=== PATIENT | female | born 1960 | race Caucasian/White ===

== ENCOUNTER → 2017-08-10 08:22 | Outpatient (CLI) | payer BC, SELFPAY ==
[2017-08-10 09:42] LABS: Hemoglobin A1C% w Est Avg Glu 7.9 % (4.0-6.0)
[2017-08-10 09:43] LABS: Alanine Aminotransferase 25 IU/L (9-52); Albumin 4.1 g/dL (3.5-5.0); Alkaline Phosphatase 98 U/L (38-126); Aspartate Aminotransferase 20 IU/L (14-36); BUN Creatinine Ratio 19.1 (6-22); Bilirubin Total 0.5 mg/dL (0.2-1.3); Calcium 9.1 mg/dL (8.4-10.2); Cholesterol 199 mg/dL (140-199); Glucose 186 mg/dL (70-100); HDL Cholesterol 35 mg/dL (40-60); HEMOLYSIS < 15 (0-50); LDL Cholesterol Calculated 118 mg/dL (<100); Potassium 4.2 mmol/L (3.4-5.1); Sodium 141 mmol/L (137-145); Total Protein 8.1 g/dL (6.3-8.2); Triglycerides 231 mg/dL (35-150)
== END ==
PROVIDERS: PCP Family Medicine; Visit Provider Family Medicine
DX: E66.01 Morbid (severe) obesity due to excess calories (principal); I10 Essential (primary) hypertension; E78.2 Mixed hyperlipidemia; E11.65 Type 2 diabetes mellitus with hyperglycemia
CPT/HCPCS: 36415; 80053; 80061; 83036

== ENCOUNTER → 2017-12-16 15:33 | Outpatient (CLI) | payer BC, SELFPAY | PROVIDERS: PCP Family Medicine; Visit Provider Physician Assistant | DX: R52 Pain, unspecified (principal) | CPT/HCPCS: 87070; 87075; 87205; 87252 ==

== ENCOUNTER → 2018-02-03 08:48 | Outpatient (CLI) | payer BC, SELFPAY ==
[2018-02-03 09:46] LABS: Alanine Aminotransferase 19 IU/L (9-52); Albumin 4.2 g/dL (3.5-5.0); Albumin Globulin Ratio 1.1 (1.0-2.8); Alkaline Phosphatase 95 U/L (38-126); Aspartate Aminotransferase 21 IU/L (14-36); Bilirubin Total 0.3 mg/dL (0.2-1.3); Blood Urea Nitrogen 18 mg/dL (7-17); Calcium 8.9 mg/dL (8.4-10.2); Carbon Dioxide 30 mmol/L (22-32); Chloride 99 mmol/L (98-107); Cholesterol 307 mg/dL (140-199); Estimated Glomerular Filt Rate > 60.0 mL/min (>60); Globulin 3.7 g/dL (1.7-4.1); Glucose 217 mg/dL (70-100); HDL Cholesterol 38 mg/dL (40-60); HEMOLYSIS < 15 (0-50); LDL Cholesterol Calculated 210 mg/dL (<100); Potassium 4.1 mmol/L (3.4-5.1); Sodium 140 mmol/L (137-145); Total Protein 7.9 g/dL (6.3-8.2); Triglycerides 297 mg/dL (35-150)
[2018-02-03 09:48] LABS: Hemoglobin A1C% w Est Avg Glu 10.4 % (4.0-6.0)
[2018-02-03 23:13] LABS: Thyroid Stimulating Hormone 2.58 uIU/mL (0.47-4.68)
[2018-02-04 03:24] LABS: Free T3, Triiodothyronine Free 2.67 pg/mL (2.77-5.27); Free T4, Direct Thyroxine 1.67 ng/dL (0.78-2.19)
== END ==
PROVIDERS: PCP Family Medicine; Visit Provider Family Medicine
DX: E11.9 Type 2 diabetes mellitus without complications (principal); E03.9 Hypothyroidism, unspecified; E78.5 Hyperlipidemia, unspecified; I10 Essential (primary) hypertension
CPT/HCPCS: 36415; 80053; 80061; 83036; 84439; 84443; 84481

== ENCOUNTER → 2018-05-17 09:56 | Outpatient (CLI) | payer BC, SELFPAY ==
[2018-05-17 11:13] LABS: Add Manual Diff / Slide Review NO; Basophils Absolute Auto 100 /uL (0-100); Basophils Percent Auto 0.6 % (0-2); Eosinophils Absolute Auto 500 /uL (0-450); Eosinophils Percent Auto 5.2 % (2-4); Hemoglobin 12.2 g/dL (12.0-16.0); Lymphocytes Absolute Auto 2500 /uL (1100-4500); Lymphocytes Percent Auto 26.5 % (25-40); Mean Corpuscular HGB Conc 32.9 % (30-36); Mean Corpuscular Hemoglobin 28.3 PG (26-34); Mean Corpuscular Volume 85.9 fL (80-100); Monocytes Absolute Auto 400 /uL (0-900); Neutrophils Absolute Auto 5900 /uL (1500-7000); Neutrophils Percent Auto 63.7 % (50-75); Platelet Count 410 X10^3/uL (150-400); Red Blood Cell Count 4.31 X10^6/uL (4.0-5.2); Red Cell Distribution Width 13.8 % (11.6-14.8); White Blood Cell Count 9.3 X10^3/uL (4.5-11.0)
[2018-05-17 11:28] LABS: Hemoglobin A1C% w Est Avg Glu 9.3 % (4.0-6.0)
[2018-05-17 11:35] LABS: Alanine Aminotransferase 31 IU/L (9-52); Albumin 4.2 g/dL (3.5-5.0); Albumin Globulin Ratio 1.1 (1.0-2.8); Alkaline Phosphatase 87 U/L (38-126); Aspartate Aminotransferase 20 IU/L (14-36); Bilirubin Total 0.4 mg/dL (0.2-1.3); Blood Urea Nitrogen 27 mg/dL (7-17); Calcium 9.8 mg/dL (8.4-10.2); Carbon Dioxide 28 mmol/L (22-32); Chloride 99 mmol/L (98-107); Cholesterol 249 mg/dL (140-199); Estimated Glomerular Filt Rate 35.7 mL/min (>60); Globulin 3.9 g/dL (1.7-4.1); Glucose 189 mg/dL (70-100); HDL Cholesterol 39 mg/dL (40-60); HEMOLYSIS < 15 (0-50); LDL Cholesterol Calculated 145 mg/dL (<100); Potassium 4.7 mmol/L (3.4-5.1); Sodium 139 mmol/L (137-145); Total Protein 8.1 g/dL (6.3-8.2); Triglycerides 325 mg/dL (35-150)
== END ==
PROVIDERS: PCP Family Medicine; Visit Provider Family Medicine
DX: E11.9 Type 2 diabetes mellitus without complications (principal); E78.5 Hyperlipidemia, unspecified; I10 Essential (primary) hypertension; Z51.81 Encounter for therapeutic drug level monitoring
CPT/HCPCS: 36415; 80053; 80061; 83036; 85025

== ENCOUNTER → 2018-09-22 08:57 | Outpatient (CLI) | payer BC, SELFPAY ==
[2018-09-22 09:24] LABS: Add Manual Diff / Slide Review NO; Basophils Absolute Auto 0 /uL (0-100); Basophils Percent Auto 0.5 % (0-2); Eosinophils Absolute Auto 300 /uL (0-450); Eosinophils Percent Auto 3.4 % (2-4); Hematocrit 37.6 % (36-46); Hemoglobin 12.1 g/dL (12.0-16.0); Lymphocytes Absolute Auto 2100 /uL (1100-4500); Lymphocytes Percent Auto 24.9 % (25-40); Mean Corpuscular HGB Conc 32.1 % (30-36); Mean Corpuscular Volume 87.2 fL (80-100); Monocytes Absolute Auto 400 /uL (0-900); Monocytes Percent Auto 4.3 % (3-14); Neutrophils Absolute Auto 5600 /uL (1500-7000); Neutrophils Percent Auto 66.9 % (50-75); Platelet Count 338 X10^3/uL (150-400); Red Blood Cell Count 4.31 X10^6/uL (4.0-5.2); Red Cell Distribution Width 14.1 % (11.6-14.8); White Blood Cell Count 8.3 X10^3/uL (4.5-11.0)
[2018-09-22 09:35] LABS: Hemoglobin A1C% w Est Avg Glu 9.9 % (4.0-6.0)
[2018-09-22 09:47] LABS: Alanine Aminotransferase 25 IU/L (9-52); Albumin Globulin Ratio 1.1 (1.0-2.8); Alkaline Phosphatase 103 U/L (38-126); Aspartate Aminotransferase 26 IU/L (14-36); BUN Creatinine Ratio 16.7 (6-22); Bilirubin Total 0.4 mg/dL (0.2-1.3); Blood Urea Nitrogen 20 mg/dL (7-17); Calcium 9.2 mg/dL (8.4-10.2); Carbon Dioxide 28 mmol/L (22-32); Chloride 103 mmol/L (98-107); Cholesterol 287 mg/dL (140-199); Globulin 3.8 g/dL (1.7-4.1); Glucose 208 mg/dL (70-100); HDL Cholesterol 39 mg/dL (40-60); HEMOLYSIS < 15 (0-50); LDL Cholesterol Calculated 175 mg/dL (<100); Potassium 4.4 mmol/L (3.4-5.1); Sodium 141 mmol/L (137-145); Total Protein 7.8 g/dL (6.3-8.2); Triglycerides 367 mg/dL (35-150)
[2018-09-22 10:14] LABS: Free T4, Direct Thyroxine 1.16 ng/dL (0.78-2.19)
[2018-09-22 10:27] LABS: Thyroid Stimulating Hormone 2.72 uIU/mL (0.47-4.68)
== END ==
PROVIDERS: PCP Family Medicine; Visit Provider Family Medicine
DX: E11.9 Type 2 diabetes mellitus without complications (principal); E66.01 Morbid (severe) obesity due to excess calories; E78.5 Hyperlipidemia, unspecified; I10 Essential (primary) hypertension; Z79.4 Long term (current) use of insulin
CPT/HCPCS: 36415; 80053; 80061; 83036; 84439; 84443; 84481; 85025

== ENCOUNTER → 2019-08-03 09:56 | Outpatient (CLI) | payer BC, SELFPAY ==
[2019-08-03 11:02] LABS: Add Manual Diff / Slide Review NO; Basophils Absolute Auto 0 /uL (0-100); Basophils Percent Auto 0.4 % (0-2); Eosinophils Absolute Auto 200 /uL (0-450); Eosinophils Percent Auto 2.8 % (2-4); Hematocrit 37.6 % (36-46); Hemoglobin 12.4 g/dL (12.0-16.0); Lymphocytes Absolute Auto 1900 /uL (1100-4500); Mean Corpuscular HGB Conc 33.1 % (30-36); Mean Corpuscular Hemoglobin 28.8 PG (26-34); Monocytes Absolute Auto 300 /uL (0-900); Monocytes Percent Auto 4.1 % (3-14); Neutrophils Absolute Auto 5300 /uL (1500-7000); Neutrophils Percent Auto 68.7 % (50-75); Platelet Count 367 X10^3/uL (150-400); Red Blood Cell Count 4.32 X10^6/uL (4.0-5.2); Red Cell Distribution Width 13.7 % (11.6-14.8); White Blood Cell Count 7.7 X10^3/uL (4.5-11.0)
[2019-08-03 11:04] LABS: Hemoglobin A1C% w Est Avg Glu > 14.0 % (4.0-6.0)
[2019-08-03 11:23] LABS: Creatinine Urine Random 179.3 mg/dL
[2019-08-03 11:25] LABS: Alanine Aminotransferase 18 IU/L (<35); Albumin Globulin Ratio 1.1 (1.0-2.8); Alkaline Phosphatase 105 U/L (38-126); Aspartate Aminotransferase 22 IU/L (14-36); BUN Creatinine Ratio 18.8 (6-22); Bilirubin Total 0.5 mg/dL (0.2-1.3); Blood Urea Nitrogen 19 mg/dL (7-17); Calcium 9.5 mg/dL (8.4-10.2); Carbon Dioxide 31 mmol/L (22-32); Chloride 97 mmol/L (98-107); Cholesterol 229 mg/dL (140-199); Estimated Glomerular Filt Rate 55.9 mL/min (>60); Globulin 3.8 g/dL (1.7-4.1); Glucose 225 mg/dL (80-110); HDL Cholesterol 34 mg/dL (40-60); HEMOLYSIS < 15 (0-50); LDL Cholesterol Calculated 133 mg/dL (<100); Potassium 3.9 mmol/L (3.4-5.1); Sodium 137 mmol/L (137-145); Total Protein 7.8 g/dL (6.3-8.2); Triglycerides 310 mg/dL (35-150)
[2019-08-03 11:41] LABS: Free T3, Triiodothyronine Free 2.85 pg/mL (2.77-5.27); Free T4, Direct Thyroxine 1.62 ng/dL (0.78-2.19)
[2019-08-03 11:51] LABS: Microalbumi Creatinin Ratio Ur 233.6 ug/mg CR (<30); Microalbumin Urine Random 41.9 mg/dL (0-1.6)
[2019-08-03 11:54] LABS: Thyroid Stimulating Hormone 2.01 uIU/mL (0.47-4.68)
== END ==
LOC: LAB 09:57
PROVIDERS: PCP Family Medicine; Referring Provider Family Medicine; Visit Provider Family Medicine
DX: E11.9 Type 2 diabetes mellitus without complications (principal); E66.01 Morbid (severe) obesity due to excess calories; E78.5 Hyperlipidemia, unspecified; I10 Essential (primary) hypertension; Z79.4 Long term (current) use of insulin
CPT/HCPCS: 36415; 80053; 80061; 82043; 82570; 83036; 84439; 84443; 84481; 85025

== ENCOUNTER → 2020-07-17 10:49 | Outpatient (CLI) | payer BC, SELFPAY ==
[2020-07-17 11:49] LABS: Add Manual Diff / Slide Review NO; Basophils Absolute Auto 0 /uL (0-100); Basophils Percent Auto 0.4 % (0-2); Eosinophils Absolute Auto 300 /uL (0-450); Eosinophils Percent Auto 3.8 % (2-4); Hematocrit 39.2 % (36-46); Hemoglobin 12.9 g/dL (12.0-16.0); Lymphocytes Absolute Auto 2000 /uL (1100-4500); Lymphocytes Percent Auto 21.9 % (25-40); Mean Corpuscular HGB Conc 32.9 % (30-36); Mean Corpuscular Hemoglobin 28.6 PG (26-34); Mean Corpuscular Volume 87.1 fL (80-100); Monocytes Absolute Auto 400 /uL (0-900); Monocytes Percent Auto 4.7 % (3-14); Neutrophils Absolute Auto 6400 /uL (1500-7000); Neutrophils Percent Auto 69.2 % (50-75); Platelet Count 356 X10^3/uL (150-400); Red Blood Cell Count 4.51 X10^6/uL (4.0-5.2); Red Cell Distribution Width 13.6 % (11.6-14.8); White Blood Cell Count 9.3 X10^3/uL (4.5-11.0)
[2020-07-17 12:09] LABS: Hemoglobin A1C% w Est Avg Glu 12.2 % (4.0-6.0)
[2020-07-17 12:26] LABS: Alanine Aminotransferase 19 IU/L (<35); Albumin 3.8 g/dL (3.5-5.0); Alkaline Phosphatase 124 U/L (38-126); Aspartate Aminotransferase 21 IU/L (14-36); BUN Creatinine Ratio 20.2 (6-22); Bilirubin Total 0.4 mg/dL (0.2-1.3); Blood Urea Nitrogen 21 mg/dL (7-17); Calcium 9.2 mg/dL (8.4-10.2); Carbon Dioxide 33 mmol/L (22-32); Chloride 94 mmol/L (98-107); Cholesterol 236 mg/dL (140-199); Estimated Glomerular Filt Rate 53.9 mL/min (>60); Globulin 3.7 g/dL (1.7-4.1); Glucose 356 mg/dL (80-110); HDL Cholesterol 33 mg/dL (40-60); HEMOLYSIS < 15 (0-50); LDL Cholesterol Calculated 134 mg/dL (<100); Potassium 4.1 mmol/L (3.4-5.1); Sodium 134 mmol/L (137-145); Total Protein 7.5 g/dL (6.3-8.2); Triglycerides 343 mg/dL (35-150)
[2020-07-17 13:04] LABS: Thyroid Stimulating Hormone 3.57 uIU/mL (0.47-4.68)
[2020-07-17 13:17] LABS: Free T3, Triiodothyronine Free 2.42 pg/mL (2.77-5.27); Free T4, Direct Thyroxine 1.62 ng/dL (0.78-2.19)
== END ==
PROVIDERS: PCP Family Medicine; Referring Provider Family Medicine; Visit Provider Family Medicine
DX: E11.9 Type 2 diabetes mellitus without complications (principal); E78.5 Hyperlipidemia, unspecified; I10 Essential (primary) hypertension; Z79.4 Long term (current) use of insulin
CPT/HCPCS: 36415; 80053; 80061; 83036; 84439; 84443; 84481; 85025

== ENCOUNTER → 2020-07-22 12:15 | Outpatient (CLI) | payer BC, SELFPAY ==
[2020-07-22 13:01] LABS: COVID19 -Nasal RAPID Negative (Negative)
== END ==
PROVIDERS: PCP Family Medicine; Visit Provider Physician Assistant
DX: J02.9 Acute pharyngitis, unspecified (principal); R05 Cough; Z20.822 Contact with and (suspected) exposure to COVID-19
CPT/HCPCS: 87070; 87635

== ENCOUNTER → 2020-11-19 10:53 | Outpatient (CLI) | payer BC, SELFPAY ==
[2020-11-19 11:37] LABS: Add Manual Diff / Slide Review NO; Basophils Absolute Auto 0 /uL (0-100); Basophils Percent Auto 0.5 % (0-2); Eosinophils Absolute Auto 200 /uL (0-450); Eosinophils Percent Auto 2.6 % (2-4); Hematocrit 38.6 % (36-46); Hemoglobin 12.8 g/dL (12.0-16.0); Lymphocytes Absolute Auto 1900 /uL (1100-4500); Lymphocytes Percent Auto 20.3 % (25-40); Mean Corpuscular HGB Conc 33.1 % (30-36); Mean Corpuscular Hemoglobin 28.5 PG (26-34); Monocytes Absolute Auto 300 /uL (0-900); Monocytes Percent Auto 3.6 % (3-14); Neutrophils Absolute Auto 6700 /uL (1500-7000); Platelet Count 351 X10^3/uL (150-400); Red Blood Cell Count 4.49 X10^6/uL (4.0-5.2); Red Cell Distribution Width 14.2 % (11.6-14.8); White Blood Cell Count 9.1 X10^3/uL (4.5-11.0)
[2020-11-19 11:40] LABS: Hemoglobin A1C% w Est Avg Glu 10.4 % (4.0-6.0)
[2020-11-19 11:50] LABS: Alanine Aminotransferase 17 IU/L (<35); Albumin 4.2 g/dL (3.5-5.0); Albumin Globulin Ratio 1.2 (1.0-2.8); Alkaline Phosphatase 107 U/L (38-126); Aspartate Aminotransferase 21 IU/L (14-36); BUN Creatinine Ratio 23.4 (6-22); Bilirubin Total 0.5 mg/dL (0.2-1.3); Blood Urea Nitrogen 26 mg/dL (7-17); Calcium 9.4 mg/dL (8.4-10.2); Carbon Dioxide 32 mmol/L (22-32); Chloride 99 mmol/L (98-107); Cholesterol 217 mg/dL (140-199); Globulin 3.6 g/dL (1.7-4.1); Glucose 303 mg/dL (80-110); HDL Cholesterol 34 mg/dL (40-60); HEMOLYSIS < 15 (0-50); LDL Cholesterol Calculated 129 mg/dL (<100); Potassium 3.9 mmol/L (3.4-5.1); Sodium 137 mmol/L (137-145); Total Protein 7.8 g/dL (6.3-8.2); Triglycerides 270 mg/dL (35-150)
== END ==
PROVIDERS: PCP Family Medicine; Referring Provider Family Medicine; Visit Provider Family Medicine
DX: E78.5 Hyperlipidemia, unspecified (principal); I10 Essential (primary) hypertension; E11.9 Type 2 diabetes mellitus without complications; Z79.4 Long term (current) use of insulin
CPT/HCPCS: 36415; 80053; 80061; 83036; 85025

== ENCOUNTER → 2020-12-19 10:02 | Outpatient (CLI) | payer BC, SELFPAY ==
--- NOTE | 2020-12-20 09:14 | DIAB.MNT ---
Initial Diabetes Medical Nutrition Therapy Assessment Name: Shawnee Castellano Date: 12/19/20 Time: 1030-1150s Dx: Type II Diabetes Provider: Alfie Mallory presents today with support person, her sister. Reports extensive FH of T2Dm with siblings and both parents. Reports father from DM complications and mother of stroke/heart attack. States she is worried about her kidney health, worsening GFR. Endorses excessive urination and LE tingling. h/o family dieting (ie brown rice/grapefruit diet, vegan diet). Finances are a barrier. 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 Often comes home exhausted/stressed, skips dinner, forgets insulin and goes to bed. Endorses large food intake on weekends. Endorses food cravings. Reports h/o weight loss r/t smaller portions more frequently. Likes soft foods like soup r/t TMJ. Loves beverages, often sugary. Never had DM education classes in the past. Shawnee has a good amount of nutrition knowledge, but it seems her stage of change and stress may be a barrier previously. She seems ready to start planning lifestyle changes. Diet Recall: : croissant, butter, venti iced shane (120g CHO) 2p: 1/2 bag popcorn OR 2c potato with beef OR 2 corn dogs OR frozen burrito OR veg tray with hummus and salad (15-65g CHO) +/- snacks: sm cheeto bag 6p: nothing or 1c fruit (0-15g CHO) Beverages: 64oz water, diet 7up, regular or diet vielka finesse, pineapple juice 4-5 days per week Anthropometrics: Ht: 62 Wt: 299# reported Physical Activity: No program. Walks the floors for work inconsistently. Sedentary job. h/o hula and gracy chi. No places in her area offering gracy chi-- has a home video. She has a free membership to a gym through work. Also has two dogs with her sister, whom she lives with. Self-Monitoring Blood Glucose: No log book to review today. Reports FBG 160-220s and pre dinner 200s mg/dL. Pertinent Labs: HgA1c 10.4% Cholesterol: 217 H T H LDL: 142 H HDL: 34 L Diabetes Medications: Metformin 1000 mg BID (reports XR) Glargine 80u (has been following provider rx of increasing insulin 2u q 3 days until at goal) Past Medical History: (Last Reviewed 07/22/20 @ 19:57 by Jaylin Abrams PA-C) Allergy (Unknown) Alopecia (1986) Ankle pain (2014) Asthma (~07/2010) Cataracts, bilateral (2013) Chickenpox (~1960) Chronic back pain (1959) since , slip 5th disc 2014. Chronic cough (2016) Diabetes (2013) Duodenal ulcer (1983) Eczema (1986) Fibromyalgia (2009) Foot pain (Unknown) Generalized headaches (1971) Hemorrhoids (2013) History of recurrent ear infection (1971) History of tinnitus (1979) Hyperlipidemia (~07/2010) Hypertension (2006) Hypothyroidism (2010) Migraines (1971) Ovarian cyst (2010) Recurrent sinusitis (1971) Seasonal depression (2014) Thyroid nodule (2010) Urinary incontinence (2016) Vertigo (1979) Nutrition Rx: Carbohydrates: Meal: 45g Snack: 15-30g Nutrition Diagnosis: - Excessive CHO intake r/t stage of change aeb diet recall and pt report - Physical inactivity r/t work schedule and stage of change aeb pt report Intervention: This participant was very receptive. Provided appropriate educational handouts. Discussed the following topics: Completed intake assessment. Discussed barriers to care. HgA1c, its correlation to blood glucose numbers, and rationale for goal Goals for BG monitoring Plate Method, impact of macronutrients on blood sugar, meal timing, carbohydrate counting, pairing macronutrients and spreading out carbohydrates for better blood glucose management Recommended servings for carbohydrates at meals and snacks Heart health nutrition Impact of beverages on BG Role of physical activity and following guidelines for safety Created SMART goals for patient self-care and success Since Shawnee is taking >0.5u per kg, she may benefit from adding GLP1 RA or other additional diabetes medication. If adding meal-time insulin, my guess is that she may often skip this due to her work schedule. She was asking about GLP1 Trulicity today since her sister and friend takes it. We discussed asking insurance about coverage and discussing further with provider. Given her weight and BG mgmnt GLP1 may be a good choice. Goals: Ask insurance about Trulicity Walk dogs 2-3 days per week Switch venti to kodak Check BG FBG and HS Follow-up: RDN CDCES follow-up in 2-3 weeks 1:1 and DM ed class series. Jocelyn Peterson RDN, [facility] Certified Diabetes Care and [employer] Ebs Architect P: [phone] Thank you for this referral
== END ==
PROVIDERS: PCP Family Medicine; Referring Provider Family Medicine; Visit Provider Family Medicine
DX: E11.9 Type 2 diabetes mellitus without complications (principal); Z71.3 Dietary counseling and surveillance; Z79.4 Long term (current) use of insulin
CPT/HCPCS: 97802

== ENCOUNTER → 2020-12-25 09:30 | Outpatient (CLI) | payer BC, SELFPAY ==
--- NOTE | 2020-12-25 14:02 | DIAB.FU ---
Diabetes Education Class Series: Diabetes and Nutrition Name: Shawnee Castellano Date: 12/25/20 Time: 355u-3438x Dx: Type II Diabetes Shawnee presents to class 1 of 3 with support person/sister, Piedad who also has T2DM. Shawnee states she has been working on getting more protein into her diet. Her sister has been cooking and preparing more meals for her. She is also working on moving more, as her job is very sedentary per her report. Class topics covered: ? Debunk nutrition myths and discuss how to sustain healthy eating long-term through moderation and variety ? Define macronutrients and determine their impact on blood sugars ? Discuss macronutrient pairing, Plate Method, and carb counting ? Review general recommendations for carbohydrates ? Practice label reading ? Discuss the role of fiber in diabetes and provide examples of sources ? Review heart health nutrition: fats, fiber, and sodium ? Determine recommendations for grocery shopping and eating out ? Discuss alcohol recommendations ? Review the role of substitute sugars in diabetes management ? Set SMART goals Goal Set: Walk 15 min 5 days per week. Have protein at dinner 3 nights per week min. Follow-up: Diabetes Physiology and Medication Class in one week Jocelyn Peterson RDN, [facility] Registered Dietitian, Certified Diabetes Care and Traffic Control Operator [phone] [email or web address]
== END ==
PROVIDERS: PCP Family Medicine; Referring Provider Family Medicine; Visit Provider Family Medicine
DX: E11.9 Type 2 diabetes mellitus without complications (principal); Z71.3 Dietary counseling and surveillance
CPT/HCPCS: G0109

== ENCOUNTER → 2021-01-01 09:31 | Outpatient (CLI) | payer BC, SELFPAY ==
--- NOTE | 2021-01-02 17:16 | DIAB.FU ---
Diabetes Education Class Series: Diabetes Physiology and Medications Name: Shawnee Castellano Date: 01/02/21 Time: [id number] Shawnee presents today for DM ed class without her sister today. She participated well in class and asked appropriate questions. States she learned quite a bit about diabetes today. Class topics covered: ? Diabetes pathophysiology ? Discuss different types of diabetes ? Review criteria for diagnosing diabetes ? Review HgA1c measurement and associated blood sugars ? Review blood sugar monitoring safety, technique, and goals ? Discuss ways to reduce complications associated with diabetes, includes microvascular and macrovascular complications ? Review diabetes medications types, action, and side effects ? Health care visits recommended for people with T2DM ? Immunization recommended for people with T2DM ? SMART goals review Goal Set: Gym 2x per week (has membership to [email or web address]). Follow-up: Diabetes Lifestyle and Ongoing Support Class next week and 1:1 visit tomorrow. Jocelyn Peterson RDN, [facility] Registered Dietitian, Certified Diabetes Care and Hot Plate Press Operator [phone] [email or web address]
--- NOTE | 2021-01-02 17:23 | DIAB.MNTFU ---
Follow-up Diabetes Medical Nutrition Therapy Assessment Name: Shawnee Castellano Date: 01/02/21 Time: 1030a-12p Dx: Type II Diabetes Provider: Alfie Preferred Learning Style: Listening, Watching, Doing, Readings Shawnee presents with sister, Piedad, for MNT diabetes follow-up. Reports keeping a food journal and brought her meter for BG review. Food journal indicates inconsistent meal/snack times. Her work hours change day to day. Some days report two eating occurrences, others six. Some meals high in carb, with lemonade lavender beverage, and others within goal. Piedad reports trying to prep foods for Shawnee, but Shawnee often forgets food at home. States this is an ongoing issue brain fog. Unclear if this is diabetes related (hyperglycemia) or not. BG continue above target. Shawnee reports feeling down a lot. Has not discussed with provider. Brain fog is a reported contributing factor, as is her work environment. She reports calling insurance for [employer], which with a coupon is $25 per month per her report. Piedad is also taking Trulicity. Shawnee is looking forward to potentially less insulin (due to expense) and some weight loss with the GLP1 RA on board. Has not yet discussed with provider, though states they have discussed this option in the past. Shawnee has decreased starbucks sugared coffee beverage size to kodak. has been working on eating out less and incorporating breakfast more often. Also reports aiming for smaller food portions in general. Protein seems low in many meals and snacks. Anthropometrics: Ht: 62 Wt: 292.4# (today) Physical Activity: has been making an effort to walk more at work. Interested in going back to the gym, where she has a membership she has not been using. Walks to [employer] on her lunch break. Self-Monitoring Blood Glucose: All readings are elevated. HS readings are particularly concerning >300 mg/dL. Lantus does not seem to be covering the evening (or enough in the morning), currently taking 80u HS. GLP1 seems appropriate. She plans to contact provider today about an appt and/or rx. Date Pre Post Pre Post Pre Post HS 12/27 249 163 12/28 190 144 01/08 344 12/30 186 384 12/31 194 371 01/01 264 01/02 190 Diabetes Medications: Metformin 1000 mg BID (reports XR) Glargine 80u (was following provider rx of increasing insulin 2u q 3 days until at goal- not currently) Pertinent Labs: HgA1c 10.4% Cholesterol: 217 H T H LDL: 142 H HDL: 34 L Past Medical History: (Last Reviewed 07/22/20 @ 19:57 by Jaylin Abrams PA-C) Allergy (Unknown) Alopecia (1986) Ankle pain (2014) Asthma (~07/2010) Cataracts, bilateral (2013) Chickenpox (~1959) Chronic back pain (1959) since , slip 5th disc 2015. Chronic cough (2016) Diabetes (2013) Duodenal ulcer (1983) Eczema (1986) Fibromyalgia (2009) Foot pain (Unknown) Generalized headaches (1971) Hemorrhoids (2013) History of recurrent ear infection (1971) History of tinnitus (1979) Hyperlipidemia (~07/2010) Hypertension (2006) Hypothyroidism (2010) Migraines (1971) Ovarian cyst (2010) Recurrent sinusitis (1971) Seasonal depression (2014) Thyroid nodule (2010) Urinary incontinence (2016) Vertigo (1979) Nutrition Rx: Carbohydrates: Meal: 45g Snack: 15-30g Nutrition Diagnosis: Intervention: This participant was very receptive. Provided appropriate educational handouts. Discussed the following topics: Blood sugar review and trends. Impact of food intake and meds on results. Plate Method, impact of macronutrients on blood sugar, meal timing, carbohydrate counting, pairing macronutrients and spreading out carbohydrates for better blood glucose management Medication management Physical activity plan and progress Created SMART goals for patient self-care and success. Since Shawnee is taking >0.5u per kg, she may benefit from adding GLP1 RA or other additional diabetes medication. If adding meal-time insulin, my guess is that she may often skip this due to her work schedule. She was asking about GLP1 Trulicity since her sister and friend takes it. We discussed chatting further with provider. Given her weight and BG mgmnt GLP1 may be a good choice. Encouraged her to call providers office today, given >300 mg/dL in evening. Options could be to add GLP1 prior to PCP follow-up for review at next visit OR additional insulin to cover evening BG. Goals: Ask insurance about Trulicity- met Walk dogs 2-3 days per week- not met Switch venti to kodak- met Check BG FBG and HS- met [employer] 1 x per week- new Make HB eggs in advance for protein snack- new have protein with each meal and snack- new Reduce starbucks to once per week- new Sub protein coffee beverage for coffee- new Call provider's office today and report >300 mg/dL- new Follow-up: JOSIE CHEUNG follow-up in 2-3 weeks. Shawnee will call my office after discussing with provider's office. Jocelyn Peterson RDN, [facility] Certified Diabetes Care and Derrick Builder P: [phone] Thank you for this referral
== END ==
PROVIDERS: PCP Family Medicine; Referring Provider Family Medicine; Visit Provider Family Medicine
DX: E11.9 Type 2 diabetes mellitus without complications (principal); Z71.3 Dietary counseling and surveillance; Z79.84 Long term (current) use of oral hypoglycemic drugs; Z79.4 Long term (current) use of insulin
CPT/HCPCS: G0109

== ENCOUNTER → 2021-01-02 10:16 | Outpatient (CLI) | payer BC, SELFPAY | PROVIDERS: PCP Family Medicine; Referring Provider Family Medicine; Visit Provider Family Medicine | DX: E11.9 Type 2 diabetes mellitus without complications (principal); Z71.3 Dietary counseling and surveillance | CPT/HCPCS: 97803 ==

== ENCOUNTER → 2021-01-08 09:29 | Outpatient (CLI) | payer BC, SELFPAY ==
--- NOTE | 2021-01-09 15:15 | DIAB.FU ---
Diabetes Education Class Series: Diabetes Lifestyle Change and Ongoing Support Name: Shawnee Castellano Date: 01/08/21 Time: 807--2853r Dx: Type II Diabetes Shawnee attended class with sister as support, Piedad. States she has decreased eating out, has been focusing on more mindful eating, and continues tracking food intake. She participated well in class and states she feels she is learning something new every class. Class topics covered: ? Discuss the difference between physical activity and exercise ? Determine physical activity benefits and impact on diabetes ? Review physical activity recommendations and safety ? Discuss emergency preparedness ? Discuss diabetes and emotions (diabetes burnout/distress) ? Review and practice stress management techniques ? Review support groups and community resources ? Discuss the role of family support in diabetes care ? What is going well? Challenges of diabetes? ? Set SMART goals Follow-up: 1:1 visit follow-up 01/23/21 Jocelyn Peterson RDN, [facility] Registered Dietitian, Certified Diabetes Care and Graduate Student Instructor [phone] [email or web address]
== END ==
PROVIDERS: PCP Family Medicine; Referring Provider Family Medicine; Visit Provider Family Medicine
DX: E11.9 Type 2 diabetes mellitus without complications (principal); Z71.3 Dietary counseling and surveillance
CPT/HCPCS: G0109

== ENCOUNTER → 2021-01-15 12:08 | Outpatient (CLI) | payer BC, SELFPAY ==
[2021-01-15 13:01] LABS: Add Manual Diff / Slide Review NO; Basophils Absolute Auto 0 /uL (0-100); Basophils Percent Auto 0.4 % (0-2); Eosinophils Absolute Auto 400 /uL (0-450); Eosinophils Percent Auto 4.2 % (2-4); Hematocrit 39.2 % (36-46); Hemoglobin 12.9 g/dL (12.0-16.0); Lymphocytes Absolute Auto 2300 /uL (1100-4500); Lymphocytes Percent Auto 21.6 % (25-40); Mean Corpuscular Hemoglobin 28.1 PG (26-34); Mean Corpuscular Volume 84.9 fL (80-100); Monocytes Absolute Auto 500 /uL (0-900); Monocytes Percent Auto 4.6 % (3-14); Neutrophils Absolute Auto 7200 /uL (1500-7000); Neutrophils Percent Auto 69.2 % (50-75); Platelet Count 396 X10^3/uL (150-400); Red Blood Cell Count 4.61 X10^6/uL (4.0-5.2); Red Cell Distribution Width 13.9 % (11.6-14.8); White Blood Cell Count 10.5 X10^3/uL (4.5-11.0)
[2021-01-15 13:10] LABS: Alanine Aminotransferase 16 IU/L (<35); Albumin Globulin Ratio 1.2 (1.0-2.8); Alkaline Phosphatase 86 U/L (38-126); Aspartate Aminotransferase 18 IU/L (14-36); BUN Creatinine Ratio 16.7 (6-22); Bilirubin Total 0.7 mg/dL (0.2-1.3); Blood Urea Nitrogen 20 mg/dL (7-17); Calcium 9.5 mg/dL (8.4-10.2); Carbon Dioxide 32 mmol/L (22-32); Chloride 97 mmol/L (98-107); Cholesterol 174 mg/dL (140-199); Estimated Glomerular Filt Rate 45.7 mL/min (>60); Globulin 3.3 g/dL (1.7-4.1); Glucose 133 mg/dL (80-110); HDL Cholesterol 33 mg/dL (40-60); HEMOLYSIS < 15 (0-50); Hemoglobin A1C% w Est Avg Glu 9.4 % (4.0-6.0); LDL Cholesterol Calculated 95 mg/dL (<100); Potassium 3.9 mmol/L (3.4-5.1); Sodium 138 mmol/L (137-145); Total Protein 7.3 g/dL (6.3-8.2); Triglycerides 231 mg/dL (35-150)
== END ==
LOC: LAB 12:09
PROVIDERS: PCP Family Medicine; Referring Provider Family Medicine; Visit Provider Family Medicine
DX: E11.9 Type 2 diabetes mellitus without complications (principal); E78.5 Hyperlipidemia, unspecified; I10 Essential (primary) hypertension; Z79.4 Long term (current) use of insulin
CPT/HCPCS: 36415; 80053; 80061; 83036; 85025

== ENCOUNTER → 2021-01-23 10:18 | Outpatient (CLI) | payer BC, SELFPAY ==
--- NOTE | 2021-01-24 17:22 | DIAB.MNTFU ---
Follow-up Diabetes Medical Nutrition Therapy Assessment Name: Shawnee Castellano Date: 01/23/21 Time: 7730-2102 Dx: Type II Diabetes Shawnee presents with sister, Piedad, for forllow-up. States she has started Trulicity last Thursday, but she accidentally injected into her finger. Despite this, she did see a decrease in her BG readings. At the same time she ran out of her insulin. So at this time she is only taking Trulicity for DM meds. BG improved, but still above target with either an increase in Trulicity or continuation of insulin (perhaps at a lower dose). She is worried about low blood sugar if adding back insulin at original dose. States she has not reduced starbucks coffee occurrences, but has been sticking to smaller portions. Still having higher carb coffee beverages three times per week. States once per week was extreme. Was going every day prior to DM ed. Gives up caffeine and fried foods and chocolate for Lent usually, and usually will see a great improvement in BG. Getting tired of raw vegetables, open to steaming them. More consistent kcal intake and efforts toward pairing protein, but some days protein still very low per food diary. Eating fish 1 x per week Reports continued struggles with stress at work. Plans to take a leave of absence and go to [place] to see family and get on a regimen with health. Anthropometrics: Ht: 62 Wt: 290.4# (last provider visit-- declined weight today) Weight history: 292.4# (01/02/21) Physical Activity: Walking the store more. Walking to [employer] from work to get lunch. Wants to go to the gym still, but having a hard time motivating herself to get there. Self-Monitoring Blood Glucose: Bolded elevated BG. Most still above target, though much better than previous readings in 200-300s mg/dL. Date Pre Post Pre Post Pre Post HS 01/09 209 211 01/10 132 01/19 187 01/20 126 141 01/21 159 182 01/22 177 219 01/23 194 Diabetes Medications: Metformin 1000 mg BID Trulicity 0.75 weekly (started just last Thursday) Lantus (usually 80u HS, but has not been taking since Thursday when she ran out of insulin) Pertinent Labs: 10/26/21 HgA1c: 9.4% (improved from 10.4%) Cholesterol: 174 (improved from 217 H) LDL: 95 (improved from 129 H) HDL: 33L (34 last lab) Past Medical History: (Last Reviewed 07/22/20 @ 19:57 by Jaylin Abrams PA-C) Allergy (Unknown) Alopecia (1986) Ankle pain (2014) Asthma (~07/2010) Cataracts, bilateral (2013) Chickenpox (~1960) Chronic back pain (1959) since , slip 5th disc 2014. Chronic cough (2016) Diabetes (2013) Duodenal ulcer (1983) Eczema (1986) Fibromyalgia (2009) Foot pain (Unknown) Generalized headaches (1971) Hemorrhoids (2013) History of recurrent ear infection (1971) History of tinnitus (1979) Hyperlipidemia (~07/2010) Hypertension (2006) Hypothyroidism (2010) Migraines (1971) Ovarian cyst (2010) Recurrent sinusitis (1971) Seasonal depression (2014) Thyroid nodule (2010) Urinary incontinence (2016) Vertigo (1979) Nutrition Rx: Carbohydrates: Meal: 45g Snack: 15-30g Nutrition Diagnosis: Inconsistent protein intake r/t stage of change aeb food diary Physical inactivity r/t <150 min activity per week aeb pt report Intervention: This participant was very receptive. Provided appropriate educational handouts. Discussed the following topics: Blood sugar review and trends. Impact of food intake on results. Plate Method, impact of macronutrients on blood sugar, meal timing, carbohydrate counting, pairing macronutrients and spreading out carbohydrates for better blood glucose management DM medications Considering smaller dose of insulin to start and increasing as provider rx'd (since started GLP1) Eating out and grocery shopping tips Meal planning and carb counting review Physical activity plan and progress Created SMART goals for patient self-care and success. Goals: [employer] 1 x per week- not met Make HB eggs in advance for protein snack- met have protein with each meal and snack- improved Reduce starbucks to once per week- not met Sub protein coffee beverage for coffee- not met Call provider's office today and report >300 mg/dL- met Try seated exercise video new Steam vegetables new Add Lantus back at 10 u to start- new Follow-up: JOSIE CHEUNG follow-up in 2-3 weeks Jocelyn Peterson, JOSIE, SK[facility] Certified Diabetes Care and Center[employer] Grinding Machine Adjuster P: [phone] Thank you for this referral
== END ==
PROVIDERS: PCP Family Medicine; Referring Provider Family Medicine; Visit Provider Family Medicine
DX: E11.9 Type 2 diabetes mellitus without complications (principal); Z79.84 Long term (current) use of oral hypoglycemic drugs
CPT/HCPCS: G0108

== ENCOUNTER → 2021-01-31 16:06 | Outpatient (CLI) | payer BC, SELFPAY ==
[2021-01-31 16:30] LABS: COVID19 -Nasal RAPID Negative (Negative)
== END ==
PROVIDERS: PCP Family Medicine; Referring Provider Nurse Practitioner Family; Visit Provider Nurse Practitioner Family
DX: Z20.822 Contact with and (suspected) exposure to COVID-19 (principal)
CPT/HCPCS: 87635

== ENCOUNTER 2021-02-01 13:01 | Inpatient (IN) | payer BC, SELFPAY ==
[2021-02-01] VITALS (20 sets, daily range): BP systolic 92–139; BP diastolic 07–80; PULSE 64–75; RESP 14–25; TEMP 36.2–36.4; O2SAT 94–100; BMI 45.4; BMI 46.0
[2021-02-01 14:21] LABS: Add Manual Diff / Slide Review NO; Basophils Absolute Auto 100 /uL (0-100); Basophils Percent Auto 0.6 % (0-2); Eosinophils Absolute Auto 200 /uL (0-450); Eosinophils Percent Auto 1.1 % (2-4); Hematocrit 43.7 % (36-46); Hemoglobin 14.2 g/dL (12.0-16.0); Lymphocytes Absolute Auto 2600 /uL (1100-4500); Lymphocytes Percent Auto 13.1 % (25-40); Mean Corpuscular HGB Conc 32.6 % (30-36); Mean Corpuscular Hemoglobin 27.7 PG (26-34); Mean Corpuscular Volume 85.2 fL (80-100); Monocytes Absolute Auto 800 /uL (0-900); Monocytes Percent Auto 3.9 % (3-14); Neutrophils Absolute Auto 16100 /uL (1500-7000); Neutrophils Percent Auto 81.3 % (50-75); Platelet Count 578 X10^3/uL (150-400); Red Blood Cell Count 5.13 X10^6/uL (4.0-5.2); Red Cell Distribution Width 14.1 % (11.6-14.8); White Blood Cell Count 19.8 X10^3/uL (4.5-11.0)
[2021-02-01 14:23] LABS: Alanine Aminotransferase 17 IU/L (<35); Albumin Globulin Ratio 1.2 (1.0-2.8); Alkaline Phosphatase 93 U/L (38-126); Aspartate Aminotransferase 26 IU/L (14-36); BUN Creatinine Ratio 11.1 (6-22); Bilirubin Total 0.8 mg/dL (0.2-1.3); Blood Urea Nitrogen 65 mg/dL (7-17); Calcium 9.7 mg/dL (8.4-10.2); Carbon Dioxide 22 mmol/L (22-32); Chloride 95 mmol/L (98-107); Estimated Glomerular Filt Rate 7.4 mL/min (>60); Globulin 4.3 g/dL (1.7-4.1); Glucose 200 mg/dL (80-110); Lipase 304 U/L (23-300); Potassium 4.9 mmol/L (3.4-5.1); Sodium 134 mmol/L (137-145); Total Protein 9.3 g/dL (6.3-8.2)
--- NOTE | 2021-02-01 14:23 | ED.NAVMDI ---
HPI - Nausea/Vomiting/Diarrhea <Rj Montgomery PA-C - Last Filed: 02/01/21 14:29> General Chief complaint: Nausea/Vomiting/Diarrhea Stated complaint: Can't Keep Anything Down/In Time Seen by Provider: 02/01/21 13:51 Source: patient Mode of arrival: Ambulatory Limitations: no limitations History of Present Illness HPI Narrative: Patient is a 60-year-old female presenting to the emergency department today for an evaluation of abdominal pain that began approximately 6 days ago. Patient states that she took her 1st dose of Trulicity on Thursday, and began to experience nonbloody diarrhea on Thursday with upper abdominal pain and belching. She explains that her episodes of diarrhea continued on Thursday, noting that on Thursday she experienced over 20 episodes of diarrhea. Patient coming into experience episodes of nonbloody nonbilious vomiting beginning Thursday. Of note, she reports 2 episodes of nonbloody nonbilious vomiting and 1 episode of nonbloody diarrhea today. She states that she has taken some Imodium which seems to have helped her symptoms. She denies fever, chills, chest pain, shortness of breath, dysuria, swelling in the bilateral lower extremities, hemoptysis. Of note, patient states that her current abdominal pain feels similar to the pain that she had experienced with a previous duodenal ulcer. No recent trauma or injury reported. No other concerns voiced at this time. Related Data Home Medications Medication Instructions Recorded Confirmed cholecalciferol (vitamin D3) 100 4,000 unit PO #0 05/22/16 01/31/21 mcg (4,000 unit) capsule (Vitamin D3) fluticasone propionate 50 1 spray INTRANASAL DAILY gram 11/03/18 02/01/21 mcg/actuation nasal spray,suspension mupirocin calcium 2 % topical cream 1 applictn TOP DAILY gram 11/03/18 02/01/21 albuterol sulfate 90 mcg/actuation 2 puff INHALATION Q4HP 02/01/21 02/01/21 aerosol inhaler (Ventolin HFA) insulin glargine 100 unit/mL 80 unit SUBCUT DAILY 02/01/21 02/01/21 subcutaneous solution (Lantus U-100 Insulin) Previous Rx's Medication Instructions Recorded benzonatate 100 mg capsule 100 mg PO BID PRN #60 cap 07/17/20 amlodipine 5 mg tablet See Rx Instructions .ROUTE 10/08/20 .COMPLEX #90 tab atenolol 50 mg tablet See Rx Instructions .ROUTE 10/08/20 .COMPLEX #90 tab atorvastatin 80 mg tablet 80 mg PO DAILY #90 tab 10/09/20 hydrochlorothiazide 25 mg tablet 25 mg PO QDAY #90 tab 10/09/20 metformin 1,000 mg tablet See Rx Instructions .ROUTE 10/09/20 .COMPLEX #180 tab levothyroxine 125 mcg tablet See Rx Instructions .ROUTE 01/07/21 (Euthyrox) .COMPLEX #60 tab lisinopril 40 mg tablet 40 mg PO DAILY #90 tab 01/07/21 dulaglutide 3 mg/0.5 mL 3 mg SUBCUT QWEEK #2 ml 01/17/21 subcutaneous pen injector (Trulicity) ondansetron HCl 4 mg tablet 4 mg PO Q8H PRN #14 tab 01/31/21 (Zofran) Allergies Allergy/AdvReac Type Severity Reaction Status Date / Time shellfish derived Allergy Severe HIVES Verified 01/31/21 16:04 [SHELLFISH DERIVED] iodine [IODINE] Allergy Unknown Verified 01/31/21 16:04 Review of Systems <Rj Montgomery PA-C - Last Filed: 02/01/21 14:29> Constitutional Constitutional: Denies chills, Denies fever(s), Denies frequent falls, Denies lethargy and Denies weakness ENT Ears, Nose, Mouth, and Throat: Denies dizziness Cardiovascular Cardiovascular: Denies chest pain, Denies irregular heart rhythm, Denies lightheadedness, Denies palpitations, Denies dyspnea, Denies dyspnea on exertion and Denies orthopnea Respiratory Respiratory: Denies cough, Denies dyspnea, Denies dyspnea on exertion and Denies wheezing Gastrointestinal Gastrointestinal: Reports abdominal pain, Denies melena, Denies hematochezia, Reports change in bowel habits, Denies coffee ground emesis, Reports diarrhea, Reports nausea, Reports vomiting and Denies hematemesis Musculoskeletal Musculoskeletal: Denies numbness Integumentary/Breasts Skin/Breast: Denies pruritus, Denies erythema, Denies rash and Denies wounds Neurologic Neurologic: Denies behavioral changes, Denies confusion, Denies dizziness, Denies frequent falls, Denies numbness and Denies weakness Psychiatric Psychiatric: Denies behavioral changes and Denies confusion Endocrine Endocrine: Denies palpitations Allergic/Immunologic Allergic/Immunologic: Denies wheezing Patient History <Rj Montgomery PA-C - Last Filed: 02/01/21 14:29> Medical History (Updated 02/01/21 @ 23:12 by Lisa Dunn MD) Allergy (Unknown) Alopecia (1986) Ankle pain (2015) Asthma (~07/2010) Cataracts, bilateral (2013) Chickenpox (~1959) Chronic back pain (1959) Chronic cough (2017) Diabetes (2013) Duodenal ulcer (1983) Eczema (1986) Fibromyalgia (2009) Foot pain (Unknown) Generalized headaches (1971) Hemorrhoids (2013) History of recurrent ear infection (1971) History of tinnitus (1979) Hyperlipidemia (~07/2010) Hypertension (2006) Hypothyroidism (2010) Migraines (1971) Ovarian cyst (2010) Recurrent sinusitis (1971) Seasonal depression (2014) Thyroid nodule (2010) Urinary incontinence (2016) Vertigo (1979) Surgical History History of third molar tooth extraction Status post colonoscopy Family History Brother Age: 63 Diabetes mellitus Heart disease Hypertension High cholesterol Drug abuse Brother Age: 56 Diabetes mellitus Hypertension High cholesterol Stroke Father Diabetes mellitus Heart disease Hypertension High cholesterol Mother Diabetes mellitus Heart disease Hypertension High cholesterol Stroke Grandfather Diabetes mellitus Heart disease Hypertension High cholesterol Grandmother Diabetes mellitus Heart disease Hypertension High cholesterol Sister Age: 59 COPD (chronic obstructive pulmonary disease) Diabetes mellitus Heart disease Hypertension High cholesterol Sister Age: 57 Hypertension High cholesterol Social History household members: family Smoking Status: Never smoker alcohol intake: current Smoking Status: Never smoker alcohol intake frequency: holidays/special occasions only Substance Use Type: does not use Exam <Rj Montgomery PA-C - Last Filed: 02/01/21 14:29> Narrative Exam Narrative: GENERAL: 60 year old patient appears stated age. Well-developed patient, in no acute distress. HEAD: Atraumatic. Normocephalic. EYES: Pupils equal round and reactive. Extraocular motions intact. No scleral icterus. No injection or drainage. ENT: Nose without bleeding, purulent drainage. Throat without erythema, tonsillar hypertrophy or exudate. Airway patent. NECK: Trachea midline. Non tender CARDIOVASCULAR: Regular rate and rhythm without murmurs, gallops, or rubs. RESPIRATORY: Clear to auscultation. Breath sounds equal bilaterally. No wheezes, rales, or rhonchi. GASTROINTESTINAL: Abdomen soft, nondistended. Tenderness to palpation appreciated in the right upper quadrant, left upper quadrant, and left lower quadrant. No masses appreciated. EXTREMITIES: No edema or joint tenderness. BACK: Nontender without deformity or crepitance. No flank tenderness. NEURO: AOx3. SKIN: No rash or erythema of visible areas Initial Vital Signs Initial Vital Signs: Vital Signs Temperature 97.1 F L 02/01/21 13:31 Pulse Rate 75 02/01/21 13:31 Respiratory Rate 16 02/01/21 13:31 Blood Pressure 114/67 02/01/21 13:31 Pulse Oximetry 96 02/01/21 13:31 Cardio Pulses: dorsalis pedis present bilaterally <Lisa Dunn MD - Last Filed: 02/02/21 06:31> Initial Vital Signs Initial Vital Signs: Vital Signs Temperature 97.1 F L 02/01/21 13:31 Pulse Rate 75 02/01/21 13:31 Respiratory Rate 16 02/01/21 13:31 Blood Pressure 114/67 02/01/21 13:31 Pulse Oximetry 96 02/01/21 13:31 Course <Rj Montgomery PA-C - Last Filed: 02/01/21 14:29> Orders Ordered: Acetaminophen (Acetaminophen 325 Mg Tablet) 650 mg PO Q6HR PRN PRN Reason: Fever/Mild Pain (1-3) Last Admin: 02/01/21 23:28 Dose: 650 mg Documented by: AHARSTA Amlodipine Besylate (Amlodipine 5 Mg Tablet) 5 mg PO DAILY ELIA Atenolol (Atenolol 50 Mg Tablet) 50 mg PO DAILY ELIA Atorvastatin Calcium (Atorvastatin 20 Mg Tablet) 80 mg PO BEDTIME ELIA Heparin Sodium (Porcine) (Heparin 5,000 Unit/Ml Vial) 5,000 unit SUBCUT BID ELIA Last Admin: 02/01/21 23:01 Dose: Not Given Documented by: KKNOTT Hydromorphone HCl (Hydromorphone 0.5 Mg Inj) 0.5 mg IV Q6H PRN PRN Reason: Pain, Moderate (4-6) Lactated Ringer's (Lactated Ringers) 1,000 mls @ 150 mls/hr IV CONT [facility] Last Admin: 02/02/21 05:14 Dose: 150 mls/hr Documented by: Infusion: 02/02/21 05:14 Dose: 150 mls/hr Documented by: Admin: 02/01/21 23:00 Dose: 150 mls/hr Documented by: JASON Ceftriaxone Sodium 2,000 mg/ (Sodium Chloride) 100 mls @ 200 mls/hr IV Q24H [facility] Last Admin: 02/01/21 23:24 Dose: Not Given Documented by: GUILLERMINA Insulin Glargine (Insulin Glargine 100 Unit/Ml 3ml Pen) 40 unit SUBCUT BEDTIME [facility] Last Admin: 02/02/21 00:14 Dose: Not Given Documented by: GUILLERMINA Naloxone HCl (Naloxone 0.4 Mg/Ml Vial) 0.2 mg IV Q2MIN PRN PRN Reason: Opiate Reversal Ondansetron HCl (Ondansetron 4 Mg/2 Ml Inj) 4 mg IV Q8HR PRN PRN Reason: Nausea And Vomiting Pantoprazole Sodium (Pantoprazole Dr 20 Mg Tablet) 20 mg PO 0600 [facility] Last Admin: 02/02/21 06:19 Dose: 20 mg Documented by: GUILLERMINA Discontinued Medications Sodium Chloride (Normal Saline 0.9%) 1,000 mls @ 500 mls/hr IV BOLUS ONE Stop: 02/01/21 16:55 Last Infusion: 02/01/21 17:02 Dose: 0 mls/hr Documented by: Admin: 02/01/21 15:02 Dose: 500 mls/hr Documented by: EVE Sodium Chloride (Normal Saline 0.9%) 1,000 mls @ 1,000 mls/hr IV BOLUS ONE Stop: 02/01/21 16:58 Last Infusion: 02/01/21 17:31 Dose: 0 mls/hr Documented by: Admin: 02/01/21 16:05 Dose: 1,000 mls/hr Documented by: EVE Sodium Chloride (Normal Saline 0.9%) 1,000 mls @ 500 mls/hr IV BOLUS ONE Stop: 02/01/21 19:54 Last Infusion: 02/01/21 20:20 Dose: 0 mls/hr Documented by: Admin: 02/01/21 17:57 Dose: 500 mls/hr Documented by: EVE Ceftriaxone Sodium 2,000 mg/ (Sodium Chloride) 100 mls @ 200 mls/hr IV NOW ONE Stop: 02/01/21 20:18 Last Infusion: 02/01/21 21:21 Dose: 0 mls/hr Documented by: Admin: 02/01/21 20:38 Dose: 200 mls/hr Documented by: NICOLÁS Insulin Glargine (Insulin Glargine 100 Unit/Ml 3ml Pen) 50 unit SUBCUT BEDTIME ELIA Last Admin: 02/01/21 23:09 Dose: 30 unit Documented by: GUILLERMINA Cosigned by: SANTOSH Vital Signs Vital signs: Vital Signs - 8 hr 02/01/21 15:30 02/01/21 16:00 02/01/21 16:15 Pulse Rate 67 70 66 Respiratory Rate 18 18 18 Blood Pressure 98/66 103/07 L 107/57 L Pulse Oximetry 98 97 98 02/01/21 17:00 02/01/21 17:32 02/01/21 18:00 Pulse Rate 65 64 64 Respiratory Rate 18 18 18 Blood Pressure 114/64 117/68 132/80 Pulse Oximetry 97 97 97 02/01/21 18:29 02/01/21 18:30 02/01/21 19:00 Pulse Rate 67 65 66 Respiratory Rate 15 18 15 Blood Pressure 132/80 118/71 Pulse Oximetry 100 97 94 02/01/21 19:30 02/01/21 20:00 02/01/21 20:01 Pulse Rate 68 65 65 Respiratory Rate 25 H 20 25 H Blood Pressure 113/77 115/54 L Pulse Oximetry 97 97 99 02/01/21 20:30 02/01/21 21:00 02/01/21 21:01 Pulse Rate 66 68 68 Respiratory Rate 19 14 17 Blood Pressure 139/71 Pulse Oximetry 98 97 02/01/21 21:30 Pulse Rate 69 Respiratory Rate 14 Blood Pressure 111/55 L Pulse Oximetry 96 <Lisa Dunn MD - Last Filed: 02/02/21 06:31> Orders Ordered: Acetaminophen (Acetaminophen 325 Mg Tablet) 650 mg PO Q6HR PRN PRN Reason: Fever/Mild Pain (1-3) Last Admin: 02/01/21 23:28 Dose: 650 mg Documented by: GUILLERMINA Amlodipine Besylate (Amlodipine 5 Mg Tablet) 5 mg PO DAILY [facility] Atenolol (Atenolol 50 Mg Tablet) 50 mg PO DAILY [facility] Atorvastatin Calcium (Atorvastatin 20 Mg Tablet) 80 mg PO BEDTIME [facility] Heparin Sodium (Porcine) (Heparin 5,000 Unit/Ml Vial) 5,000 unit SUBCUT BID [facility] Last Admin: 02/01/21 23:01 Dose: Not Given Documented by: JASON Hydromorphone HCl (Hydromorphone 0.5 Mg Inj) 0.5 mg IV Q6H PRN PRN Reason: Pain, Moderate (4-6) Lactated Ringer's (Lactated Ringers) 1,000 mls @ 150 mls/hr IV CONT [facility] Last Admin: 02/02/21 05:14 Dose: 150 mls/hr Documented by: Infusion: 02/02/21 05:14 Dose: 150 mls/hr Documented by: Admin: 02/01/21 23:00 Dose: 150 mls/hr Documented by: JASON Ceftriaxone Sodium 2,000 mg/ (Sodium Chloride) 100 mls @ 200 mls/hr IV Q24H [facility] Last Admin: 02/01/21 23:24 Dose: Not Given Documented by: GUILLERMINA Insulin Glargine (Insulin Glargine 100 Unit/Ml 3ml Pen) 40 unit SUBCUT BEDTIME [facility] Last Admin: 02/02/21 00:14 Dose: Not Given Documented by: GUILLERMINA Naloxone HCl (Naloxone 0.4 Mg/Ml Vial) 0.2 mg IV Q2MIN PRN PRN Reason: Opiate Reversal Ondansetron HCl (Ondansetron 4 Mg/2 Ml Inj) 4 mg IV Q8HR PRN PRN Reason: Nausea And Vomiting Pantoprazole Sodium (Pantoprazole Dr 20 Mg Tablet) 20 mg PO 0600 [facility] Last Admin: 02/02/21 06:19 Dose: 20 mg Documented by: GUILLERMINA Discontinued Medications Sodium Chloride (Normal Saline 0.9%) 1,000 mls @ 500 mls/hr IV BOLUS ONE Stop: 02/01/21 16:55 Last Infusion: 02/01/21 17:02 Dose: 0 mls/hr Documented by: Admin: 02/01/21 15:02 Dose: 500 mls/hr Documented by: EVE Sodium Chloride (Normal Saline 0.9%) 1,000 mls @ 1,000 mls/hr IV BOLUS ONE Stop: 02/01/21 16:58 Last Infusion: 02/01/21 17:31 Dose: 0 mls/hr Documented by: Admin: 02/01/21 16:05 Dose: 1,000 mls/hr Documented by: EVE Sodium Chloride (Normal Saline 0.9%) 1,000 mls @ 500 mls/hr IV BOLUS ONE Stop: 02/01/21 19:54 Last Infusion: 02/01/21 20:20 Dose: 0 mls/hr Documented by: Admin: 02/01/21 17:57 Dose: 500 mls/hr Documented by: EVE Ceftriaxone Sodium 2,000 mg/ (Sodium Chloride) 100 mls @ 200 mls/hr IV NOW ONE Stop: 02/01/21 20:18 Last Infusion: 02/01/21 21:21 Dose: 0 mls/hr Documented by: Admin: 02/01/21 20:38 Dose: 200 mls/hr Documented by: NICOLÁS Insulin Glargine (Insulin Glargine 100 Unit/Ml 3ml Pen) 50 unit SUBCUT BEDTIME ELIA Last Admin: 02/01/21 23:09 Dose: 30 unit Documented by: GUILLERMINA Cosigned by: SANTOSH Vital Signs Vital signs: Vital Signs - 8 hr 02/01/21 15:30 02/01/21 16:00 02/01/21 16:15 Pulse Rate 67 70 66 Respiratory Rate 18 18 18 Blood Pressure 98/66 103/07 L 107/57 L Pulse Oximetry 98 97 98 02/01/21 17:00 02/01/21 17:32 02/01/21 18:00 Pulse Rate 65 64 64 Respiratory Rate 18 18 18 Blood Pressure 114/64 117/68 132/80 Pulse Oximetry 97 97 97 02/01/21 18:29 02/01/21 18:30 02/01/21 19:00 Pulse Rate 67 65 66 Respiratory Rate 15 18 15 Blood Pressure 132/80 118/71 Pulse Oximetry 100 97 94 02/01/21 19:30 02/01/21 20:00 02/01/21 20:01 Pulse Rate 68 65 65 Respiratory Rate 25 H 20 25 H Blood Pressure 113/77 115/54 L Pulse Oximetry 97 97 99 02/01/21 20:30 02/01/21 21:00 02/01/21 21:01 Pulse Rate 66 68 68 Respiratory Rate 19 14 17 Blood Pressure 139/71 Pulse Oximetry 98 97 02/01/21 21:30 Pulse Rate 69 Respiratory Rate 14 Blood Pressure 111/55 L Pulse Oximetry 96 MDM - Nausea/Vomiting/Diarrhea <Rj Montgomery PA-C - Last Filed: 02/01/21 14:29> Lab Data Result diagrams: 02/02/21 05:15 02/02/21 05:15 Labs: Lab Results 02/01/21 02/01/21 02/01/21 Range/Units 13:50 13:50 13:50 WBC 19.8 H (4.5-11.0) X10^3/uL RBC 5.13 (4.0-5.2) X10^6/uL Hgb 14.2 (12.0-16.0) g/dL Hct 43.7 (36-46) % MCV 85.2 (80-100) fL MCH 27.7 (26-34) PG MCHC 32.6 (30-36) % RDW 14.1 (11.6-14.8) % Plt Count 578 H (150-400) X10^3/uL Neut % (Auto) 81.3 H (50-75) % Lymph % (Auto) 13.1 L (25-40) % [facility] % (Auto) 3.9 (3-14) % Eos % (Auto) 1.1 L (2-4) % Baso % (Auto) 0.6 (0-2) % Neut # (Auto) 68533 H (8545-1499) /uL Lymph # (Auto) 2600 (3321-2332) /uL [facility] # (Auto) 800 (0-900) /uL Eos # (Auto) 200 (0-450) /uL Baso # (Auto) 100 (0-100) /uL Sodium 134 L (137-145) mmol/L Potassium 4.9 (3.4-5.1) mmol/L Chloride 95 L (98-107) mmol/L Carbon Dioxide 22 (22-32) mmol/L BUN 65 H (7-17) mg/dL Creatinine 5.83 H (0.52-1.04) mg/dL Estimated GFR 7.4 L (>60) mL/min BUN/Creatinine Ratio 11.1 (6-22) Glucose 200 H (80-110) mg/dL Lactate (0.7-2.1) mmol/L Calcium 9.7 (8.4-10.2) mg/dL Total Bilirubin 0.8 (0.2-1.3) mg/dL AST 26 (14-36) IU/L ALT 17 (<35) IU/L Alkaline Phosphatase 93 (38-126) U/L NT-Pro-B Natriuret Pep 76 (<125) pg/mL Total Protein 9.3 H (6.3-8.2) g/dL Albumin 5.0 (3.5-5.0) g/dL Globulin 4.3 H (1.7-4.1) g/dL Albumin/Globulin Ratio 1.2 (1.0-2.8) Lipase 304 H (23-300) U/L Urine RBC (0-5/HPF) Urine WBC (0-5/HPF) Ur Squamous Epith Cells (0-5/HPF) Amorphous Sediment Urine Bacteria (None) Urine Mucus (Negative) Ur Culture Indicated? SARS-CoV-2 (PCR) (Negative) 02/01/21 02/01/21 02/01/21 Range/Units 17:43 19:45 20:30 WBC (4.5-11.0) X10^3/uL RBC (4.0-5.2) X10^6/uL Hgb (12.0-16.0) g/dL Hct (36-46) % MCV (80-100) fL MCH (26-34) PG MCHC (30-36) % RDW (11.6-14.8) % Plt Count (150-400) X10^3/uL Neut % (Auto) (50-75) % Lymph % (Auto) (25-40) % [facility] % (Auto) (3-14) % Eos % (Auto) (2-4) % Baso % (Auto) (0-2) % Neut # (Auto) (9393-4471) /uL Lymph # (Auto) (8705-2538) /uL [facility] # (Auto) (0-900) /uL Eos # (Auto) (0-450) /uL Baso # (Auto) (0-100) /uL Sodium 136 L (137-145) mmol/L Potassium 4.2 (3.4-5.1) mmol/L Chloride 103 (98-107) mmol/L Carbon Dioxide 23 (22-32) mmol/L BUN 61 H (7-17) mg/dL Creatinine 5.42 H (0.52-1.04) mg/dL Estimated GFR 8.0 L (>60) mL/min BUN/Creatinine Ratio 11.3 (6-22) Glucose 129 H (80-110) mg/dL Lactate (0.7-2.1) mmol/L Calcium 8.1 L (8.4-10.2) mg/dL Total Bilirubin 0.4 (0.2-1.3) mg/dL AST 14 (14-36) IU/L ALT 11 (<35) IU/L Alkaline Phosphatase 68 (38-126) U/L NT-Pro-B Natriuret Pep (<125) pg/mL Total Protein 7.2 (6.3-8.2) g/dL Albumin 3.8 (3.5-5.0) g/dL Globulin 3.4 (1.7-4.1) g/dL Albumin/Globulin Ratio 1.1 (1.0-2.8) Lipase (23-300) U/L Urine RBC 1-5/hpf (0-5/HPF) Urine WBC 30-100/hpf H (0-5/HPF) Ur Squamous Epith Cells 5-10 /hpf H (0-5/HPF) Amorphous Sediment 1+ Urine Bacteria Moderate (10-30) H (None) Urine Mucus 2+ H (Negative) Ur Culture Indicated? Specimen cultured SARS-CoV-2 (PCR) Negative (Negative) 02/01/21 Range/Units 20:36 WBC (4.5-11.0) X10^3/uL RBC (4.0-5.2) X10^6/uL Hgb (12.0-16.0) g/dL Hct (36-46) % MCV (80-100) fL MCH (26-34) PG MCHC (30-36) % RDW (11.6-14.8) % Plt Count (150-400) X10^3/uL Neut % (Auto) (50-75) % Lymph % (Auto) (25-40) % [facility] % (Auto) (3-14) % Eos % (Auto) (2-4) % Baso % (Auto) (0-2) % Neut # (Auto) (3226-7915) /uL Lymph # (Auto) (4345-4935) /uL [facility] # (Auto) (0-900) /uL Eos # (Auto) (0-450) /uL Baso # (Auto) (0-100) /uL Sodium (137-145) mmol/L Potassium (3.4-5.1) mmol/L Chloride (98-107) mmol/L Carbon Dioxide (22-32) mmol/L BUN (7-17) mg/dL Creatinine (0.52-1.04) mg/dL Estimated GFR (>60) mL/min BUN/Creatinine Ratio (6-22) Glucose (80-110) mg/dL Lactate 1.4 (0.7-2.1) mmol/L Calcium (8.4-10.2) mg/dL Total Bilirubin (0.2-1.3) mg/dL AST (14-36) IU/L ALT (<35) IU/L Alkaline Phosphatase (38-126) U/L NT-Pro-B Natriuret Pep (<125) pg/mL Total Protein (6.3-8.2) g/dL Albumin (3.5-5.0) g/dL Globulin (1.7-4.1) g/dL Albumin/Globulin Ratio (1.0-2.8) Lipase (23-300) U/L Urine RBC (0-5/HPF) Urine WBC (0-5/HPF) Ur Squamous Epith Cells (0-5/HPF) Amorphous Sediment Urine Bacteria (None) Urine Mucus (Negative) Ur Culture Indicated? SARS-CoV-2 (PCR) (Negative) <Lisa Dunn MD - Last Filed: 02/02/21 06:31> Lab Data Labs: Lab Results 02/01/21 02/01/21 02/01/21 Range/Units 13:50 13:50 13:50 WBC 19.8 H (4.5-11.0) X10^3/uL RBC 5.13 (4.0-5.2) X10^6/uL Hgb 14.2 (12.0-16.0) g/dL Hct 43.7 (36-46) % MCV 85.2 (80-100) fL MCH 27.7 (26-34) PG MCHC 32.6 (30-36) % RDW 14.1 (11.6-14.8) % Plt Count 578 H (150-400) X10^3/uL Neut % (Auto) 81.3 H (50-75) % Lymph % (Auto) 13.1 L (25-40) % [facility] % (Auto) 3.9 (3-14) % Eos % (Auto) 1.1 L (2-4) % Baso % (Auto) 0.6 (0-2) % Neut # (Auto) 63759 H (9542-0827) /uL Lymph # (Auto) 2600 (5253-4448) /uL [facility] # (Auto) 800 (0-900) /uL Eos # (Auto) 200 (0-450) /uL Baso # (Auto) 100 (0-100) /uL Sodium 134 L (137-145) mmol/L Potassium 4.9 (3.4-5.1) mmol/L Chloride 95 L (98-107) mmol/L Carbon Dioxide 22 (22-32) mmol/L BUN 65 H (7-17) mg/dL Creatinine 5.83 H (0.52-1.04) mg/dL Estimated GFR 7.4 L (>60) mL/min BUN/Creatinine Ratio 11.1 (6-22) Glucose 200 H (80-110) mg/dL Lactate (0.7-2.1) mmol/L Calcium 9.7 (8.4-10.2) mg/dL Total Bilirubin 0.8 (0.2-1.3) mg/dL AST 26 (14-36) IU/L ALT 17 (<35) IU/L Alkaline Phosphatase 93 (38-126) U/L NT-Pro-B Natriuret Pep 76 (<125) pg/mL Total Protein 9.3 H (6.3-8.2) g/dL Albumin 5.0 (3.5-5.0) g/dL Globulin 4.3 H (1.7-4.1) g/dL Albumin/Globulin Ratio 1.2 (1.0-2.8) Lipase 304 H (23-300) U/L Urine RBC (0-5/HPF) Urine WBC (0-5/HPF) Ur Squamous Epith Cells (0-5/HPF) Amorphous Sediment Urine Bacteria (None) Urine Mucus (Negative) Ur Culture Indicated? SARS-CoV-2 (PCR) (Negative) 02/01/21 02/01/21 02/01/21 Range/Units 17:43 19:45 20:30 WBC (4.5-11.0) X10^3/uL RBC (4.0-5.2) X10^6/uL Hgb (12.0-16.0) g/dL Hct (36-46) % MCV (80-100) fL MCH (26-34) PG MCHC (30-36) % RDW (11.6-14.8) % Plt Count (150-400) X10^3/uL Neut % (Auto) (50-75) % Lymph % (Auto) (25-40) % [facility] % (Auto) (3-14) % Eos % (Auto) (2-4) % Baso % (Auto) (0-2) % Neut # (Auto) (5204-2684) /uL Lymph # (Auto) (2333-1217) /uL [facility] # (Auto) (0-900) /uL Eos # (Auto) (0-450) /uL Baso # (Auto) (0-100) /uL Sodium 136 L (137-145) mmol/L Potassium 4.2 (3.4-5.1) mmol/L Chloride 103 (98-107) mmol/L Carbon Dioxide 23 (22-32) mmol/L BUN 61 H (7-17) mg/dL Creatinine 5.42 H (0.52-1.04) mg/dL Estimated GFR 8.0 L (>60) mL/min BUN/Creatinine Ratio 11.3 (6-22) Glucose 129 H (80-110) mg/dL Lactate (0.7-2.1) mmol/L Calcium 8.1 L (8.4-10.2) mg/dL Total Bilirubin 0.4 (0.2-1.3) mg/dL AST 14 (14-36) IU/L ALT 11 (<35) IU/L Alkaline Phosphatase 68 (38-126) U/L NT-Pro-B Natriuret Pep (<125) pg/mL Total Protein 7.2 (6.3-8.2) g/dL Albumin 3.8 (3.5-5.0) g/dL Globulin 3.4 (1.7-4.1) g/dL Albumin/Globulin Ratio 1.1 (1.0-2.8) Lipase (23-300) U/L Urine RBC 1-5/hpf (0-5/HPF) Urine WBC 30-100/hpf H (0-5/HPF) Ur Squamous Epith Cells 5-10 /hpf H (0-5/HPF) Amorphous Sediment 1+ Urine Bacteria Moderate (10-30) H (None) Urine Mucus 2+ H (Negative) Ur Culture Indicated? Specimen cultured SARS-CoV-2 (PCR) Negative (Negative) 02/01/21 Range/Units 20:36 WBC (4.5-11.0) X10^3/uL RBC (4.0-5.2) X10^6/uL Hgb (12.0-16.0) g/dL Hct (36-46) % MCV (80-100) fL MCH (26-34) PG MCHC (30-36) % RDW (11.6-14.8) % Plt Count (150-400) X10^3/uL Neut % (Auto) (50-75) % Lymph % (Auto) (25-40) % [facility] % (Auto) (3-14) % Eos % (Auto) (2-4) % Baso % (Auto) (0-2) % Neut # (Auto) (9012-0350) /uL Lymph # (Auto) (4885-3364) /uL [facility] # (Auto) (0-900) /uL Eos # (Auto) (0-450) /uL Baso # (Auto) (0-100) /uL Sodium (137-145) mmol/L Potassium (3.4-5.1) mmol/L Chloride (98-107) mmol/L Carbon Dioxide (22-32) mmol/L BUN (7-17) mg/dL Creatinine (0.52-1.04) mg/dL Estimated GFR (>60) mL/min BUN/Creatinine Ratio (6-22) Glucose (80-110) mg/dL Lactate 1.4 (0.7-2.1) mmol/L Calcium (8.4-10.2) mg/dL Total Bilirubin (0.2-1.3) mg/dL AST (14-36) IU/L ALT (<35) IU/L Alkaline Phosphatase (38-126) U/L NT-Pro-B Natriuret Pep (<125) pg/mL Total Protein (6.3-8.2) g/dL Albumin (3.5-5.0) g/dL Globulin (1.7-4.1) g/dL Albumin/Globulin Ratio (1.0-2.8) Lipase (23-300) U/L Urine RBC (0-5/HPF) Urine WBC (0-5/HPF) Ur Squamous Epith Cells (0-5/HPF) Amorphous Sediment Urine Bacteria (None) Urine Mucus (Negative) Ur Culture Indicated? SARS-CoV-2 (PCR) (Negative) Imaging Data Chest x-ray: Radiologist's Impression: FINDINGS:? ? Surgical changes and devices:? None.? ? Lungs and pleura:? Lungs are clear.? No pleural effusions or pneumothorax.? ? Mediastinum:? Mediastinal contours appear normal.? Heart size is normal.? ? Bones and chest wall:? No suspicious bony lesions.? Overlying soft tissues appear unremarkable.? ? IMPRESSION:? No acute cardiopulmonary pathology. ? ? Dictated by: Indra Varner M.D. on 02/01/2021 at 20:30 ? ? CT scan - abdomen/pelvis: Radiologist's Impression: FINDINGS: ABDOMEN:? Lung bases:? No acute findings. Heart:? No pericardial effusion. Normal in size.? ? Liver: Normal. Gallbladder:? Multiple rim calcified gallstones are incidentally noted.? No definite wall thickening or pericholecystic inflammatory changes. Bile ducts: Normal. Pancreas: Normal.? Spleen: Normal.? Adrenals: Normal. Kidneys and Ureters:? Normal. Stomach and duodenum: Normal. Bowel:? Normal appearance of the appendix.? No evidence of bowel obstruction.? The rectum is decompressed therefore unremarkable. Other:? No free fluid or air.? Abdominal nodes:? Normal. Aorta and IVC: Normal in size.? ? Ventral wall: Normal. ? PELVIS:? ? Bladder and reproductive:? Bladder decompressed therefore unremarkable. Inguinal region: No hernia.? Pelvic nodes: Normal.? ? Bones:? No suspicious bony lesions.? No vertebral body compression fractures.? Diffuse spondylitic changes and facet arthropathy. ? IMPRESSION:? ? Overall, no acute abnormality.? No evidence of bowel obstruction. ? Incidentally noted cholelithiasis. ? Normal appearance of the appendix ? Dictated by: Facundo Cano M.D. on 02/01/2021 at 15:07 ? ? [facility] Narrative Medical decision making narrative: 60-year-old woman recently started on Trulicity with prolific vomiting. With initial blood work she is noted to have acute kidney injury with creatinine increased from her baseline of 1.2 up to 5.4. She also noted to have a significant leukocytosis. She does appear to have a bladder infection but there does not appear to be signs of sepsis. CT scan without contrast of the abdomen was done and did not find any significant pathology. Potassium stable at 4.2 and CO2 is stable at 23. Urine does suggest a bladder infection and she is started on 2 g of ceftriaxone. With 2 L of fluid she is making clear yellow urine creatinine is slightly decreased she continues to feel nauseated. Care is reviewed with hospitalist, Dr. Laureano. She will be admitted for acute kidney injury in the setting of recently started Trulicity and likely urinary tract infection with leukocytosis but no evidence of sepsis. No evidence of significant pancreatitis, cholecystitis, diverticulitis or appendicitis. No pneumonia and she is COVID negative. Discharge Plan Departure Patient Disposition: Admitted As Inpatient Clinical Impression: Acute kidney injury Vomiting Qualifiers: Vomiting type: unspecified Vomiting Intractability: non-intractable Nausea presence: with nausea Qualified Code(s): R11.2 - Nausea with vomiting, unspecified Adverse reaction to drug Qualifiers: Encounter type: initial encounter Qualified Code(s): T50.905A - Adverse effect of unspecified drugs, medicaments and biological substances, initial encounter Urinary tract infection Qualifiers: Urinary tract infection type: acute cystitis Hematuria presence: without hematuria Qualified Code(s): N30.00 - Acute cystitis without hematuria Leukocytosis Qualifiers: Leukocytosis type: unspecified Qualified Code(s): D72.829 - Elevated white blood cell count, unspecified Admit Date/Time: 02/01/21 21:40 Admit Provider: Nereyda Laureano
[2021-02-01 14:30] LABS: HEMOLYSIS 58 (0-50)
--- NOTE | 2021-02-01 14:39 | DI.CT.S_ITS ---
PROCEDURE: CT ABDOMEN PELVIS WO CON INDICATIONS: abdominal pain, vomiting TECHNIQUE: Noncontrast 5 mm thick sections acquired from the diaphragms to the symphysis. 5 mm coronal and sagittal reformats were then performed. For radiation dose reduction, the following was used: automated exposure control, adjustment of mA and/or kV according to patient size. COMPARISON: None. FINDINGS: ABDOMEN: Lung bases: No acute findings. Heart: No pericardial effusion. Normal in size. Liver: Normal. Gallbladder: Multiple rim calcified gallstones are incidentally noted. No definite wall thickening or pericholecystic inflammatory changes. Bile ducts: Normal. Pancreas: Normal. Spleen: Normal. Adrenals: Normal. Kidneys and Ureters: Normal. Stomach and duodenum: Normal. Bowel: Normal appearance of the appendix. No evidence of bowel obstruction. The rectum is decompressed therefore unremarkable. Other: No free fluid or air. Abdominal nodes: Normal. Aorta and IVC: Normal in size. Ventral wall: Normal. PELVIS: Bladder and reproductive: Bladder decompressed therefore unremarkable. Inguinal region: No hernia. Pelvic nodes: Normal. Bones: No suspicious bony lesions. No vertebral body compression fractures. Diffuse spondylitic changes and facet arthropathy. IMPRESSION: Overall, no acute abnormality. No evidence of bowel obstruction. Incidentally noted cholelithiasis. Normal appearance of the appendix Dictated by: Facundo Cano M.D. on 02/01/2021 at 15:07 Approved by: Facundo Cano M.D. on 02/01/2021 at 15:12
[2021-02-01 14:49] LABS: NT-proBNP (BNP-Adult 18+) 76 pg/mL (<125)
[2021-02-01] MEDS: SODIUM CHLORIDE 0.9% 1,000 ML 500 ML IV ×2 (15:02→17:57)
[2021-02-01] MEDS: SODIUM CHLORIDE 0.9% 1,000 ML 1000 ML IV (16:05)
[2021-02-01 18:02] LABS: Amorphous Sediment Urine 1+; Bacteria Urine Moderate (10-30); Mucus Urine 2+ (Negative); RBC Urine 1-5/HPF (0-5/HPF); Squamous Epithelial Cell Urine 5-10 /HPF (0-5/HPF); WBC Urine 30-100/HPF (0-5/HPF)
[2021-02-01 18:03] LABS: Culture Indicated Urine Specimen Cultured
[2021-02-01 20:11] LABS: Alanine Aminotransferase 11 IU/L (<35); Albumin 3.8 g/dL (3.5-5.0); Albumin Globulin Ratio 1.1 (1.0-2.8); Alkaline Phosphatase 68 U/L (38-126); Aspartate Aminotransferase 14 IU/L (14-36); BUN Creatinine Ratio 11.3 (6-22); Bilirubin Total 0.4 mg/dL (0.2-1.3); Blood Urea Nitrogen 61 mg/dL (7-17); Calcium 8.1 mg/dL (8.4-10.2); Carbon Dioxide 23 mmol/L (22-32); Chloride 103 mmol/L (98-107); Globulin 3.4 g/dL (1.7-4.1); Glucose 129 mg/dL (80-110); HEMOLYSIS < 15 (0-50); Potassium 4.2 mmol/L (3.4-5.1); Sodium 136 mmol/L (137-145); Total Protein 7.2 g/dL (6.3-8.2)
--- NOTE | 2021-02-01 20:17 | DI.RAD.S_ITS ---
PROCEDURE: XR CHEST 1V INDICATIONS: leukocytosis TECHNIQUE: One view of the chest was acquired. COMPARISON: [facility], , CHEST 2 VIEW, 08/09/2009, 14:49. FINDINGS: Surgical changes and devices: None. Lungs and pleura: Lungs are clear. No pleural effusions or pneumothorax. Mediastinum: Mediastinal contours appear normal. Heart size is normal. Bones and chest wall: No suspicious bony lesions. Overlying soft tissues appear unremarkable. IMPRESSION: No acute cardiopulmonary pathology. Dictated by: Indra Varner M.D. on 02/01/2021 at 20:30 Approved by: Indra Varner M.D. on 02/01/2021 at 20:30
[2021-02-01] MEDS: cefTRIAXone 2,000 MG in SODIUM CHLORIDE 0.9% 100 ML 200 ML IV (20:38)
[2021-02-01 21:10] LABS: Lactate (Lactic Acid) 1.4 mmol/L (0.7-2.1)
[2021-02-01 21:49] LABS: COVID19 - ADMIT (NP swab/PCR) Negative (Negative)
--- NOTE | 2021-02-01 22:51 | P.HP_ITS ---
History of Present Illness History of Present Illness Date Patient Seen: 02/01/21 Time Patient Seen: 22:52 Chief complaint: Can't Keep Anything Down/In Narrative: The patient is a 60-year-old female with a history of type 2 diabetes, hyperlipidemia, hypertension, morbid obesity, who was in her usual state of health until about 1 week ago. Patient started Trulicity for diabetic management. She noted significant improvement of her blood sugar. However on Thursday she developed significant diarrhea. She subsequently developed nausea. This then proceeded to vomiting associated with the diarrhea. She attempted to keep up with her fluid loss by drinking lots of fluids. However she continued to have significant diarrhea with up to 27 stools per day. She had some mid epigastric pain which was similar to a prior history of peptic ulcer disease. She did not however have hematemesis melena or bright red blood per rectum. She had no fever. She does report chills. She denies any shortness of breath or chest pain. She had no dysuria hematuria or pyuria. She does report a history of rash and has no joint pains or lower extremity edema. The patient was evaluated in the at the walk-in clinic a few days ago. She was given Zofran and Imodium which helped her diarrhea significantly. However she continued to feel poorly and presented to the emergency room for evaluation. In the emergency department she was afebrile. Her white count was elevated at 19.8. Significant Violeta she was noted to have a BUN of 61 with a creatinine of 5.2. Her baseline creatinine is 1.2 with BUN of 20. The patient also was found to have a positive UA, with 30-100 wbc's, moderate bacteria, with 2+ mucus. She was given IV ceftriaxone for presumed urinary tract infection. Patient previously was on metformin in addition to lisinopril for blood pressure control. She also was on hydrochlorothiazide. All of which may have contributed to her worsening renal function. Patient is admitted to the hospital for treatment and evaluation of her acute renal failure. Patient History Medical History (Updated 02/01/21 @ 23:02 by Lisa Dunn MD) Allergy (Unknown) Alopecia (1986) Ankle pain (2014) Asthma (~07/2010) Cataracts, bilateral (2013) Chickenpox (~1959) Chronic back pain (1959) Chronic cough (2016) Diabetes (2013) Duodenal ulcer (1983) Eczema (1986) Fibromyalgia (2010) Foot pain (Unknown) Generalized headaches (1971) Hemorrhoids (2013) History of recurrent ear infection (1971) History of tinnitus (1979) Hyperlipidemia (~07/2010) Hypertension (2006) Hypothyroidism (2010) Migraines (1971) Ovarian cyst (2010) Recurrent sinusitis (1971) Seasonal depression (2014) Thyroid nodule (2010) Urinary incontinence (2016) Vertigo (1979) Surgical History History of third molar tooth extraction Status post colonoscopy Family & Social History Family History Brother Age: 63 Diabetes mellitus Heart disease Hypertension High cholesterol Drug abuse Brother Age: 56 Diabetes mellitus Hypertension High cholesterol Stroke Father Diabetes mellitus Heart disease Hypertension High cholesterol Mother Diabetes mellitus Heart disease Hypertension High cholesterol Stroke Grandfather Diabetes mellitus Heart disease Hypertension High cholesterol Grandmother Diabetes mellitus Heart disease Hypertension High cholesterol Sister Age: 59 COPD (chronic obstructive pulmonary disease) Diabetes mellitus Heart disease Hypertension High cholesterol Sister Age: 57 Hypertension High cholesterol Social History: household members family Prior Living Arrangements House Safety & Behavioral: Feels Safe in Current Yes Environment Been Physically Hurt or No Threatened By a Person Suicidal Ideation Description None Suicide Plan Description No Plan Tobacco & Substance use: Smoking Status Never smoker alcohol intake current alcohol intake frequency holiday/special occasion Substance Use Type does not use Meds Home Medications and Allergies Home Medications Medication Instructions Recorded Confirmed Type cholecalciferol (vitamin D3) 100 4,000 unit PO #0 05/22/16 01/31/21 History mcg (4,000 unit) capsule (Vitamin D3) fluticasone propionate 50 1 spray INTRANASAL DAILY gram 11/03/18 02/01/21 History mcg/actuation nasal spray,suspension mupirocin calcium 2 % topical cream 1 applictn TOP DAILY gram 11/03/18 02/01/21 History benzonatate 100 mg capsule 100 mg PO BID PRN #60 cap 07/17/20 02/01/21 Rx amlodipine 5 mg tablet See Rx Instructions .ROUTE 10/08/20 02/01/21 Rx .COMPLEX #90 tab atenolol 50 mg tablet See Rx Instructions .ROUTE 10/08/20 02/01/21 Rx .COMPLEX #90 tab atorvastatin 80 mg tablet 80 mg PO DAILY #90 tab 10/09/20 02/01/21 Rx hydrochlorothiazide 25 mg tablet 25 mg PO QDAY #90 tab 10/09/20 02/01/21 Rx metformin 1,000 mg tablet See Rx Instructions .ROUTE 10/09/20 02/01/21 Rx .COMPLEX #180 tab levothyroxine 125 mcg tablet See Rx Instructions .ROUTE 01/07/21 02/01/21 Rx (Euthyrox) .COMPLEX #60 tab lisinopril 40 mg tablet 40 mg PO DAILY #90 tab 01/07/21 02/01/21 Rx dulaglutide 3 mg/0.5 mL 3 mg SUBCUT QWEEK #2 ml 01/17/21 02/01/21 Rx subcutaneous pen injector (Trulicity) ondansetron HCl 4 mg tablet 4 mg PO Q8H PRN #14 tab 01/31/21 02/01/21 Rx (Zofran) albuterol sulfate 90 mcg/actuation 2 puff INHALATION Q4HP 02/01/21 02/01/21 History aerosol inhaler (Ventolin HFA) insulin glargine 100 unit/mL 80 unit SUBCUT DAILY 02/01/21 02/01/21 History subcutaneous solution (Lantus U-100 Insulin) Allergies Allergy/AdvReac Type Severity Reaction Status Date / Time shellfish derived Allergy Severe HIVES Verified 01/31/21 16:04 [SHELLFISH DERIVED] iodine [IODINE] Allergy Unknown Verified 01/31/21 16:04 Review of Systems Review of Systems Narrative: Ten point review of systems is negative except as above Patient does report a 24 lb weight loss over the past week Exam Vital Signs (past 8 hours): - 02/01/21 15:00 02/01/21 15:30 02/01/21 16:00 Pulse Rate 66 67 70 Respiratory Rate 18 18 18 Blood Pressure 92/68 98/66 103/07 L Pulse Oximetry 97 98 97 02/01/21 16:15 02/01/21 17:00 02/01/21 17:32 Pulse Rate 66 65 64 Respiratory Rate 18 18 18 Blood Pressure 107/57 L 114/64 117/68 Pulse Oximetry 98 97 97 02/01/21 18:00 02/01/21 18:29 02/01/21 18:30 Pulse Rate 64 67 65 Respiratory Rate 18 15 18 Blood Pressure 132/80 132/80 Pulse Oximetry 97 100 97 02/01/21 19:00 02/01/21 19:30 02/01/21 20:00 Pulse Rate 66 68 65 Respiratory Rate 15 25 H 20 Blood Pressure 118/71 113/77 Pulse Oximetry 94 97 97 02/01/21 20:01 02/01/21 20:30 02/01/21 21:00 Pulse Rate 65 66 68 Respiratory Rate 25 H 19 14 Blood Pressure 115/54 L Pulse Oximetry 99 98 02/01/21 21:01 02/01/21 21:30 Pulse Rate 68 69 Respiratory Rate 17 14 Blood Pressure 139/71 111/55 L Pulse Oximetry 97 96 Oxygen Delivery Method Room Air Narrative Exam Narrative: Pleasant female lying in bed in no obvious distress [facility] Other: HEENT: Normocephalic atraumatic, extraocular muscles are intact, oropharynx is clear with moist mucous membranes, neck is supple Resp Other: Lungs are clear to auscultation Cardio Other: Cardiac exam: Regular rate and rhythm normal S1-S2 GI Other: Abdomen: Soft nontender nondistended there is no appreciable hepatosplenomegaly, no rebound tenderness, no board-like rigidity Neuro Other: Cranial nerves 2-12 are intact, motor is 5/5 in the upper extremity 5/5 in the lower extremity patient does report neuropathy of the lower extremity reflexes are equal gait is not assessed Extrem Other: No edema Psych Other: Normal thought content, speech and movement appear normal, mood and aff ect is normal, she has normal thought processing and judgement. No hallucinations. Objective Labs Result Diagrams: 02/01/21 13:50 02/01/21 19:45 Labs: Laboratory Results - last 24 hr 02/01/21 02/01/21 02/01/21 13:50 13:50 13:50 WBC 19.8 H RBC 5.13 Hgb 14.2 Hct 43.7 MCV 85.2 MCH 27.7 MCHC 32.6 RDW 14.1 Plt Count 578 H Neut % (Auto) 81.3 H Lymph % (Auto) 13.1 L Charlton % (Auto) 3.9 Eos % (Auto) 1.1 L Baso % (Auto) 0.6 Neut # (Auto) 33520 H Lymph # (Auto) 2600 Charlton # (Auto) 800 Eos # (Auto) 200 Baso # (Auto) 100 Sodium 134 L Potassium 4.9 Chloride 95 L Carbon Dioxide 22 BUN 65 H Creatinine 5.83 H Estimated GFR 7.4 L BUN/Creatinine Ratio 11.1 Glucose 200 H Lactate Calcium 9.7 Total Bilirubin 0.8 AST 26 ALT 17 Alkaline Phosphatase 93 NT-Pro-B Natriuret Pep 76 Total Protein 9.3 H Albumin 5.0 Globulin 4.3 H Albumin/Globulin Ratio 1.2 Lipase 304 H Urine RBC Urine WBC Ur Squamous Epith Cells Amorphous Sediment Urine Bacteria Urine Mucus Ur Culture Indicated? SARS-CoV-2 (PCR) 02/01/21 02/01/21 02/01/21 17:43 19:45 20:30 WBC RBC Hgb Hct MCV MCH MCHC RDW Plt Count Neut % (Auto) Lymph % (Auto) Charlton % (Auto) Eos % (Auto) Baso % (Auto) Neut # (Auto) Lymph # (Auto) Charlton # (Auto) Eos # (Auto) Baso # (Auto) Sodium 136 L Potassium 4.2 Chloride 103 Carbon Dioxide 23 BUN 61 H Creatinine 5.42 H Estimated GFR 8.0 L BUN/Creatinine Ratio 11.3 Glucose 129 H Lactate Calcium 8.1 L Total Bilirubin 0.4 AST 14 ALT 11 Alkaline Phosphatase 68 NT-Pro-B Natriuret Pep Total Protein 7.2 Albumin 3.8 Globulin 3.4 Albumin/Globulin Ratio 1.1 Lipase Urine RBC 1-5/hpf Urine WBC 30-100/hpf H Ur Squamous Epith Cells 5-10 /hpf H Amorphous Sediment 1+ Urine Bacteria Moderate (10-30) H Urine Mucus 2+ H Ur Culture Indicated? Specimen cultured SARS-CoV-2 (PCR) Negative 02/01/21 20:36 WBC RBC Hgb Hct MCV MCH MCHC RDW Plt Count Neut % (Auto) Lymph % (Auto) Charlton % (Auto) Eos % (Auto) Baso % (Auto) Neut # (Auto) Lymph # (Auto) Charlton # (Auto) Eos # (Auto) Baso # (Auto) Sodium Potassium Chloride Carbon Dioxide BUN Creatinine Estimated GFR BUN/Creatinine Ratio Glucose Lactate 1.4 Calcium Total Bilirubin AST ALT Alkaline Phosphatase NT-Pro-B Natriuret Pep Total Protein Albumin Globulin Albumin/Globulin Ratio Lipase Urine RBC Urine WBC Ur Squamous Epith Cells Amorphous Sediment Urine Bacteria Urine Mucus Ur Culture Indicated? SARS-CoV-2 (PCR) Assessment & Plan Assessment & Plan narrative: Impression 1. 60-year-old female with a history of type 2 diabetes, hypertension, hyperlipidemia, morbid obesity, hypothyroidism who presents to the hospital with acute renal failure * Acute renal failure likely related to prerenal azotemia * This is likely precipitated by persistent nausea vomiting and diarrhea * The patient very likely attempted to take her hydrochlorothiazide lisinopril as well which likely made this worse * She reports Imodium has helped her diarrhea and she has had no further nausea or vomiting since this morning * Abdominal CT and pelvic CT reveals no acute abnormality, no bowel obstruction, and a normal appearance of the appendix * Will start IV lactated Ringer's, follow renal function closely * Will avoid nephrotoxic agent * Will discontinue lisinopril, hydrochlorothiazide, and metformin at this time * Patient with complaints of abdominal pain, abdominal CT unremarkable, suspect elevated lipase related to vomiting * She does have a history of duodenal ulcer. However there was no evidence of upper GI bleeding, will start PPI, and monitor closely * H&H 14.2 and 43, no evidence to suggest upper GI bleed 2. Probable urinary tract infection * UA positive with wbc's and bacteria * Patient received ceftriaxone in the emergency department, will continue ceftriaxone * Will await urine culture results * White count markedly elevated on admission at 19.8 will follow 3. Type 2 diabetes * Patient clearly did not tolerate Trulicity * Will hold Trulicity at this time * Will resume Lantus, blood sugars are low at this time. She currently has a blood sugar of 129. Previously she was taking 80 units of Lantus * Will resume Lantus 40 units tonight given lowish blood sugar, will check glycohemoglobin as well * Will hold metformin given acute renal failure 4. Hypertension * The patient's blood pressure well controlled at this point * She typically takes lisinopril, hydrochlorothiazide, atenolol, and amlodipine * Will hold hydrochlorothiazide and lisinopril * Will continue atenolol and amlodipine 5. Hyperlipidemia * Continue statin 6. Hypothyroidism * Continue L-thyroxine 7. Morbid obesity * Patient has lost 24 lb this week with decreased oral intake in addition to persistent nausea and vomiting * Will start clear liquid diet and advance as tolerated * Patient will be placed on subcu heparin for DVT prophylaxis She reports she is a full code will note that her record accordingly Her sister Piedad is her surrogate decision maker Patient will be admitted as an inpatient I have utilized all available records to update review and confirm current medications Time Spent With Patient Critical Care time: I spent a total of [] minutes of critical care time on this patient's care today; this time is exclusive of procedural time. Quality VTE Deep Vein Thrombosis/Pulmonary Embolism Present on Admission: No
[2021-02-01] MEDS: LACTATED RINGERS 1,000 ML 150 ML IV (23:00)
[2021-02-01] MEDS: INSULIN GLARGINE 100 UNIT/ML 3ML PEN 50 UNIT SUBCUT (23:09)
[2021-02-01] MEDS: ACETAMINOPHEN 325 MG TABLET 650 MG PO (23:28)
[2021-02-01 23:49] LABS: Blood Urea Nitrogen 60 mg/dL (7-17); Calcium 8.2 mg/dL (8.4-10.2); Carbon Dioxide 24 mmol/L (22-32); Chloride 102 mmol/L (98-107); Glucose 136 mg/dL (80-110); HEMOLYSIS < 15 (0-50); Sodium 137 mmol/L (137-145)
[2021-02-02] VITALS (8 sets, daily range): BP systolic 102–147; BP diastolic 49–78; PULSE 61–69; RESP 18; TEMP 36.1–36.4; O2SAT 71–100
[2021-02-02 00:06] LABS: Procalcitonin 0.17 ng/mL (<0.5)
--- NOTE | 2021-02-02 01:01 | PC.ADMIT ---
Addendum entered by Carleen Walden R.N. 02/02/21 01:52: Noted to desat down to 71% when asleep so placed on oxygen at 2L/min and will continue to monitor with continuous oximetry, Original Note: Patient admitted to room 222 from ER around 2200. Is alert and oriented. Has chronic tinnitis but denies hearing loss. Breath sounds CTA with RA sat of 96%; placed on continuous oximetry. HRR w/telemetry reading of SR w/1st degree AVB. Denied nausea. BT present and abdomen is soft. Reported having had diarrhea stools yesterday but states she took imodium and has not had a stool since. Has had minimal urine output over past 24 hours (had 15cc obtained for UA in ER). Is able to move herself in bed. When getting out of bed instructed to call staff for assistance and she verbalized understanding. Complained of headache of 5/10 and was medicated with Tylenol and is currently asleep. Bilateral CECILIO stockings and calf SCD's applied. Bedtime insulin was given but patient would only accept 30 units as last CBG had been 129; will recheck around 0200. Fall risk score computed by CRISTI Muniz on admission and was low fall risk. Has chronic neuropathy/numbness in toes of bilateral feet. [email or web address] Admission Note: The patient,Shawnee Castellano,60 y/o, was given written information regarding hospital policies, unit procedures and contact persons. Patient's smoking status: Never smoker. Vital Signs - 8 hr 02/01/21 17:32 02/01/21 18:00 02/01/21 18:29 Temperature Pulse Rate 64 64 67 Respiratory Rate 18 18 15 Blood Pressure 117/68 132/80 Pulse Oximetry 97 97 100 02/01/21 18:30 02/01/21 19:00 02/01/21 19:30 Temperature Pulse Rate 65 66 68 Respiratory Rate 18 15 25 H Blood Pressure 132/80 118/71 113/77 Pulse Oximetry 97 94 97 02/01/21 20:00 02/01/21 20:01 02/01/21 20:30 Temperature Pulse Rate 65 65 66 Respiratory Rate 20 25 H 19 Blood Pressure 115/54 L Pulse Oximetry 97 99 02/01/21 21:00 02/01/21 21:01 02/01/21 21:30 Temperature Pulse Rate 68 68 69 Respiratory Rate 14 17 14 Blood Pressure 139/71 111/55 L Pulse Oximetry 98 97 96 02/01/21 22:05 Temperature 97.6 F Pulse Rate 69 Respiratory Rate 18 Blood Pressure 128/77 Pulse Oximetry 96
[2021-02-02] MEDS: LACTATED RINGERS 1,000 ML 150 ML IV ×3 (05:14→19:24)
[2021-02-02 05:41] LABS: Add Manual Diff / Slide Review NO; Basophils Absolute Auto 100 /uL (0-100); Basophils Percent Auto 0.7 % (0-2); Eosinophils Absolute Auto 500 /uL (0-450); Eosinophils Percent Auto 4.4 % (2-4); Hematocrit 37.7 % (36-46); Hemoglobin 12.1 g/dL (12.0-16.0); Lymphocytes Absolute Auto 2200 /uL (1100-4500); Mean Corpuscular HGB Conc 32.2 % (30-36); Mean Corpuscular Hemoglobin 27.6 PG (26-34); Mean Corpuscular Volume 85.7 fL (80-100); Monocytes Absolute Auto 600 /uL (0-900); Monocytes Percent Auto 5.2 % (3-14); Neutrophils Absolute Auto 8800 /uL (1500-7000); Neutrophils Percent Auto 71.7 % (50-75); Platelet Count 437 X10^3/uL (150-400); Red Cell Distribution Width 13.7 % (11.6-14.8); White Blood Cell Count 12.3 X10^3/uL (4.5-11.0)
[2021-02-02 05:49] LABS: BUN Creatinine Ratio 12.3 (6-22); Blood Urea Nitrogen 62 mg/dL (7-17); Calcium 8.3 mg/dL (8.4-10.2); Carbon Dioxide 23 mmol/L (22-32); Chloride 102 mmol/L (98-107); Estimated Glomerular Filt Rate 8.7 mL/min (>60); Glucose 108 mg/dL (80-110); HEMOLYSIS < 15 (0-50); Potassium 4.1 mmol/L (3.4-5.1); Sodium 136 mmol/L (137-145)
[2021-02-02 05:55] LABS: Hemoglobin A1C% w Est Avg Glu 9.3 % (4.0-6.0)
[2021-02-02] MEDS: PANTOPRAZOLE DR 20 MG TABLET PO (06:19)
[2021-02-02] MEDS: atenoloL 50 MG TABLET PO (09:49)
[2021-02-02] MEDS: LEVOTHYROXINE 125 MCG TABLET PO (13:43)
--- NOTE | 2021-02-02 15:29 | PM.PN.1 ---
Subjective Subjective Date Patient Seen: 02/02/21 Time Patient Seen: 15:29 Interval history: Complains of epigastric burning. No chest pain, palpitations. Continues to have watery stools, no vomiting. Exam Vital Signs (past 8 hours): - 02/02/21 08:15 Temperature 96.9 F L Pulse Rate 61 Respiratory Rate 18 Blood Pressure 102/66 Pulse Oximetry 97 Oxygen Delivery Method Room Air Oxygen Flow Rate 2 Narrative Exam Narrative: Pleasant female lying in bed in no obvious distress [facility] Other:?HEENT:? Normocephalic atraumatic, extraocular muscles are intact, oropharynx is clear with moist mucous membranes, neck is supple Resp Other:?Lungs are clear to auscultation Cardio Other:?Cardiac exam: Regular rate and rhythm normal S1-S2 GI Other:?Abdomen:? Soft nontender nondistended there is no appreciable hepatosplenomegaly, no rebound tenderness, no board-like rigidity Neuro Other:?Cranial nerves 2-12 are intact, motor is 5/5 in the upper extremity 5/5 in the lower extremity patient does report neuropathy of the lower extremity reflexes are equal gait is not assessed Extrem Other:?No edema Psych Other:?Normal thought content, speech and movement appear normal, mood and affect is normal, she has normal thought processing and judgement.? No hallucinations. Objective Labs Result Diagrams: 02/02/21 05:15 02/02/21 05:15 Labs: Laboratory Results - last 24 hr 02/01/21 02/01/21 02/01/21 17:43 19:45 20:30 WBC RBC Hgb Hct MCV MCH MCHC RDW Plt Count Neut % (Auto) Lymph % (Auto) [place] % (Auto) Eos % (Auto) Baso % (Auto) Neut # (Auto) Lymph # (Auto) [place] # (Auto) Eos # (Auto) Baso # (Auto) Sodium 136 L Potassium 4.2 Chloride 103 Carbon Dioxide 23 BUN 61 H Creatinine 5.42 H Estimated GFR 8.0 L BUN/Creatinine Ratio 11.3 Glucose 129 H Hemoglobin A1c Lactate Calcium 8.1 L Total Bilirubin 0.4 AST 14 ALT 11 Alkaline Phosphatase 68 Total Protein 7.2 Albumin 3.8 Globulin 3.4 Albumin/Globulin Ratio 1.1 Procalcitonin Urine RBC 1-5/hpf Urine WBC 30-100/hpf H Ur Squamous Epith Cells 5-10 /hpf H Amorphous Sediment 1+ Urine Bacteria Moderate (10-30) H Urine Mucus 2+ H Ur Culture Indicated? Specimen cultured SARS-CoV-2 (PCR) Negative 02/01/21 02/01/21 02/01/21 20:36 23:28 23:28 WBC RBC Hgb Hct MCV MCH MCHC RDW Plt Count Neut % (Auto) Lymph % (Auto) [place] % (Auto) Eos % (Auto) Baso % (Auto) Neut # (Auto) Lymph # (Auto) [place] # (Auto) Eos # (Auto) Baso # (Auto) Sodium 137 Potassium 4.0 Chloride 102 Carbon Dioxide 24 BUN 60 H Creatinine 5.45 H Estimated GFR 8.0 L BUN/Creatinine Ratio 11.0 Glucose 136 H Hemoglobin A1c Lactate 1.4 Calcium 8.2 L Total Bilirubin AST ALT Alkaline Phosphatase Total Protein Albumin Globulin Albumin/Globulin Ratio Procalcitonin 0.17 Urine RBC Urine WBC Ur Squamous Epith Cells Amorphous Sediment Urine Bacteria Urine Mucus Ur Culture Indicated? SARS-CoV-2 (PCR) 02/01/21 02/02/21 02/02/21 23:28 05:15 05:15 WBC 12.3 H RBC 4.40 Hgb 12.1 Hct 37.7 MCV 85.7 MCH 27.6 MCHC 32.2 RDW 13.7 Plt Count 437 H Neut % (Auto) 71.7 Lymph % (Auto) 18.0 L [place] % (Auto) 5.2 Eos % (Auto) 4.4 H Baso % (Auto) 0.7 Neut # (Auto) 8800 H Lymph # (Auto) 2200 [place] # (Auto) 600 Eos # (Auto) 500 H Baso # (Auto) 100 Sodium Potassium Chloride Carbon Dioxide BUN Creatinine Estimated GFR BUN/Creatinine Ratio Glucose Hemoglobin A1c 9.3 H Lactate 1.0 Calcium Total Bilirubin AST ALT Alkaline Phosphatase Total Protein Albumin Globulin Albumin/Globulin Ratio Procalcitonin Urine RBC Urine WBC Ur Squamous Epith Cells Amorphous Sediment Urine Bacteria Urine Mucus Ur Culture Indicated? SARS-CoV-2 (PCR) 02/02/21 05:15 WBC RBC Hgb Hct MCV MCH MCHC RDW Plt Count Neut % (Auto) Lymph % (Auto) [place] % (Auto) Eos % (Auto) Baso % (Auto) Neut # (Auto) Lymph # (Auto) [place] # (Auto) Eos # (Auto) Baso # (Auto) Sodium 136 L Potassium 4.1 Chloride 102 Carbon Dioxide 23 BUN 62 H Creatinine 5.04 H Estimated GFR 8.7 L BUN/Creatinine Ratio 12.3 Glucose 108 Hemoglobin A1c Lactate Calcium 8.3 L Total Bilirubin AST ALT Alkaline Phosphatase Total Protein Albumin Globulin Albumin/Globulin Ratio Procalcitonin Urine RBC Urine WBC Ur Squamous Epith Cells Amorphous Sediment Urine Bacteria Urine Mucus Ur Culture Indicated? SARS-CoV-2 (PCR) [facility] Medical History (Updated 02/01/21 @ 23:12 by Lisa Dunn MD) Allergy (Unknown) Alopecia (1986) Ankle pain (2015) Asthma (~07/2010) Cataracts, bilateral (2013) Chickenpox (~1959) Chronic back pain (1959) Chronic cough (2016) Diabetes (2013) Duodenal ulcer (1983) Eczema (1986) Fibromyalgia (2009) Foot pain (Unknown) Generalized headaches (1971) Hemorrhoids (2013) History of recurrent ear infection (1971) History of tinnitus (1979) Hyperlipidemia (~07/2010) Hypertension (2006) Hypothyroidism (2010) Migraines (1971) Ovarian cyst (2010) Recurrent sinusitis (1971) Seasonal depression (2014) Thyroid nodule (2010) Urinary incontinence (2016) Vertigo (1979) Surgical History History of third molar tooth extraction Status post colonoscopy Family History Brother Age: 63 Diabetes mellitus Heart disease Hypertension High cholesterol Drug abuse Brother Age: 56 Diabetes mellitus Hypertension High cholesterol Stroke Father Diabetes mellitus Heart disease Hypertension High cholesterol Mother Diabetes mellitus Heart disease Hypertension High cholesterol Stroke Grandfather Diabetes mellitus Heart disease Hypertension High cholesterol Grandmother Diabetes mellitus Heart disease Hypertension High cholesterol Sister Age: 59 COPD (chronic obstructive pulmonary disease) Diabetes mellitus Heart disease Hypertension High cholesterol Sister Age: 57 Hypertension High cholesterol Social History household members: family Smoking Status: Never smoker alcohol intake: current Assessment & Plan Assessment & Plan narrative: 60-year-old female with a history of type 2 diabetes, hypertension, hyperlipidemia, morbid obesity, hypothyroidism who presents to the hospital with acute renal failure 1. Acute renal failure likely related to prerenal azotemia - This is likely precipitated by persistent nausea vomiting and diarrhea - The patient very likely attempted to take her hydrochlorothiazide lisinopril as well which likely made this worse - She reports Imodium has helped her diarrhea and she has had no further nausea or vomiting since this morning - Abdominal CT and pelvic CT reveals no acute abnormality, no bowel obstruction, and a normal appearance of the appendix - continue IV fluids today, avoid nephrotoxic medications - Will discontinue lisinopril, hydrochlorothiazide, and metformin at this time 2. Probable urinary tract infection - UA positive with wbc's and bacteria. Patient received ceftriaxone in the emergency department, will continue ceftriaxone. Will await urine culture results. White count markedly elevated on admission at 19.8 will follow 3. Type 2 diabetes - Patient clearly did not tolerate Trulicity. Will hold Trulicity at this time - Will resume Lantus, blood sugars are low at this time.? She currently has a blood sugar of 129.? Previously she was taking 80 units of Lantus. Have decreased to Lantus 40 units tonight given lowish blood sugar, will check glycohemoglobin as well - Will hold metformin given acute renal failure - A1c 9.3% 4. Hypertension - The patient's blood pressure well controlled at this point - She typically takes lisinopril, hydrochlorothiazide,? atenolol,? and amlodipine -Will hold hydrochlorothiazide and lisinopril, Will continue atenolol and amlodipine 5. Hyperlipidemia -Continue statin 6. Hypothyroidism - Continue L-thyroxine 7. Morbid obesity - Patient has lost 24 lb this week with decreased oral intake in addition to persistent nausea and vomiting DVT: low risk currently. Patient refused Heparin and SCDs. She reports she is a full code will note that her record accordingly Her sister Piedad is her surrogate decision maker Time Spent With Patient Critical Care time: I spent a total of [] minutes of critical care time on this patient's care today; this time is exclusive of procedural time. Quality VTE Deep Vein Thrombosis/Pulmonary Embolism Present on Admission: No
--- NOTE | 2021-02-02 16:17 | CM.DANOTE ---
DCP/Assessment: Reviewed chart. Patient is a 60yr old female admitted to [facility] with nausea and vomiting. PCP listed is Scott Judge. Primary payor is 1)[facility] out of [place]. Met with patient this afternoon explained CM/SW role. Patient reports that she works full-time at at [employer]. Patient completely I in ADL's at baseline. Patient resides with her sister/Piedad in [place] Patient hopeful that she will be able to d/c tomorrow 02-03. Patient recently had changed diabetic medicine and believes this might be contributing to her illness. P: Home when medically stable. CM team to continue to follow. [facility] Discharge Planning/Care Management CM Discharge Assessment Start: 02/02/21 16:15 Freq: Status: Active Protocol: Document 02/02/21 16:15 [facility] (Rec: 02/02/21 16:17 [facility] [id number]) Discharge Planning Assessment Assigned [employer] SONYA Rolle Contact Information Piedad (sister) ph# [phone] Advance Directives? No History Provided By Patient,Medical Record Prior Living Arrangements House Household Members family Type of transporation used prior to Drives own vehicle admit Independent with ADL's Yes Is patient alert and oriented? Yes Caregiver for Another No Barriers to Discharge No Discharge Plan Home Transportation Arrangement Family to provide transport. Referrals Initiated None needed Whiteboard Updated in Patient Room with Yes name and ext. # of [employer] Review Status In Process Next Review Type Continued Stay Review
[2021-02-02] MEDS: ATORVASTATIN 20 MG TABLET 80 MG PO (20:57)
[2021-02-02] MEDS: INSULIN GLARGINE 100 UNIT/ML 3ML PEN 40 UNIT SUBCUT (21:03)
[2021-02-02] MEDS: cefTRIAXone 2,000 MG in SODIUM CHLORIDE 0.9% 100 ML 200 ML IV (22:41)
--- NOTE | 2021-02-02 22:52 | PC.NURSE ---
Addendum entered by Carleen Walden R.N. 02/02/21 22:55: Having chronic generalized pain with severity of 5/10 but declines need for pain medication. Original Note: Patient is alert and oriented. Breath sounds CTA with RA sat of 94%; on continuous oximetry and did desat when asleep last night so will be monitoring for same tonight. HRR w/telemetry reading of SR w/1st degree AVB. Denies nausea. BT hypoactive; states diarrhea has resolved but now feels constipated. Denies dysuria with urination but states she has chronic urgency. Is able to turn herself in bed. Up to bathroom with SBA and is steady on feet. Wearing bilateral CECILIO stockings. Fall risk score is moderate but patient calls for assistance appropriately so bed alarm is not being used.
[2021-02-03] VITALS (7 sets, daily range): BP systolic 121–146; BP diastolic 68–85; PULSE 56–63; RESP 14–20; TEMP 36.1–36.8; O2SAT 93–99
[2021-02-03] MEDS: LACTATED RINGERS 1,000 ML 150 ML IV ×3 (03:12→16:50)
[2021-02-03] MEDS: LEVOTHYROXINE 125 MCG TABLET PO (05:36)
[2021-02-03] MEDS: PANTOPRAZOLE DR 20 MG TABLET PO (05:36)
[2021-02-03 06:03] LABS: Add Manual Diff / Slide Review NO; Basophils Absolute Auto 0 /uL (0-100); Basophils Percent Auto 0.4 % (0-2); Eosinophils Absolute Auto 400 /uL (0-450); Eosinophils Percent Auto 4.8 % (2-4); Hematocrit 36.2 % (36-46); Lymphocytes Absolute Auto 1700 /uL (1100-4500); Lymphocytes Percent Auto 20.2 % (25-40); Mean Corpuscular HGB Conc 33.2 % (30-36); Mean Corpuscular Hemoglobin 28.2 PG (26-34); Mean Corpuscular Volume 84.8 fL (80-100); Monocytes Absolute Auto 400 /uL (0-900); Monocytes Percent Auto 5.1 % (3-14); Neutrophils Absolute Auto 5900 /uL (1500-7000); Neutrophils Percent Auto 69.5 % (50-75); Platelet Count 382 X10^3/uL (150-400); Red Blood Cell Count 4.27 X10^6/uL (4.0-5.2); Red Cell Distribution Width 13.8 % (11.6-14.8); White Blood Cell Count 8.5 X10^3/uL (4.5-11.0)
[2021-02-03 06:05] LABS: BUN Creatinine Ratio 14.6 (6-22); Blood Urea Nitrogen 45 mg/dL (7-17); Calcium 8.5 mg/dL (8.4-10.2); Carbon Dioxide 27 mmol/L (22-32); Chloride 104 mmol/L (98-107); Estimated Glomerular Filt Rate 15.3 mL/min (>60); Glucose 110 mg/dL (80-110); HEMOLYSIS < 15 (0-50); Sodium 140 mmol/L (137-145)
[2021-02-03] MEDS: ACETAMINOPHEN 325 MG TABLET 650 MG PO (09:48)
[2021-02-03] MEDS: AMLODIPINE 5 MG TABLET PO (09:48)
--- NOTE | 2021-02-03 11:07 | PM.PN.1 ---
Subjective Subjective Date Patient Seen: 02/03/21 Time Patient Seen: 11:07 Interval history: Patient feels well, denies complaints. No swelling today with continued IV fluids. Exam Vital Signs (past 8 hours): - 02/03/21 05:30 02/03/21 07:49 Temperature 97.3 F L 97.0 F L Pulse Rate 61 61 Respiratory Rate 18 14 Blood Pressure 127/73 121/74 Pulse Oximetry 96 98 Oxygen Delivery Method Nasal Cannula Oxygen Flow Rate 2 Narrative Exam Narrative: Pleasant female lying in bed in no obvious distress [facility] Other:?HEENT:? Normocephalic atraumatic, extraocular muscles are intact, oropharynx is clear with moist mucous membranes, neck is supple Resp Other:?Lungs are clear to auscultation Cardio Other:?Cardiac exam: Regular rate and rhythm normal S1-S2 GI Other:?Abdomen:? Soft nontender nondistended there is no appreciable hepatosplenomegaly, no rebound tenderness, no board-like rigidity Neuro Other:?Cranial nerves 2-12 are intact, motor is 5/5 in the upper extremity 5/5 in the lower extremity patient does report neuropathy of the lower extremity reflexes are equal gait is not assessed Extrem Other:?No edema Psych Other:?Normal thought content, speech and movement appear normal, mood and affect is normal, she has normal thought processing and judgement.? No hallucinations. Objective Labs Result Diagrams: 02/03/21 05:32 02/03/21 05:32 Labs: Laboratory Results - last 24 hr 02/03/21 02/03/21 05:32 05:32 WBC 8.5 RBC 4.27 Hgb 12.0 Hct 36.2 MCV 84.8 MCH 28.2 MCHC 33.2 RDW 13.8 Plt Count 382 Neut % (Auto) 69.5 Lymph % (Auto) 20.2 L [place] % (Auto) 5.1 Eos % (Auto) 4.8 H Baso % (Auto) 0.4 Neut # (Auto) 5900 Lymph # (Auto) 1700 [place] # (Auto) 400 Eos # (Auto) 400 Baso # (Auto) 0 Sodium 140 Potassium 4.0 Chloride 104 Carbon Dioxide 27 BUN 45 H Creatinine 3.09 H Estimated GFR 15.3 L BUN/Creatinine Ratio 14.6 Glucose 110 Calcium 8.5 [facility] Medical History (Updated 02/01/21 @ 23:12 by Lisa Dunn MD) Allergy (Unknown) Alopecia (1986) Ankle pain (2015) Asthma (~07/2010) Cataracts, bilateral (2013) Chickenpox (~1960) Chronic back pain (1960) Chronic cough (2017) Diabetes (2014) Duodenal ulcer (1983) Eczema (1986) Fibromyalgia (2010) Foot pain (Unknown) Generalized headaches (1971) Hemorrhoids (2013) History of recurrent ear infection (1971) History of tinnitus (1979) Hyperlipidemia (~07/2010) Hypertension (2006) Hypothyroidism (2010) Migraines (1971) Ovarian cyst (2010) Recurrent sinusitis (1971) Seasonal depression (2014) Thyroid nodule (2010) Urinary incontinence (2016) Vertigo (1979) Surgical History History of third molar tooth extraction Status post colonoscopy Family History Brother Age: 63 Diabetes mellitus Heart disease Hypertension High cholesterol Drug abuse Brother Age: 56 Diabetes mellitus Hypertension High cholesterol Stroke Father Diabetes mellitus Heart disease Hypertension High cholesterol Mother Diabetes mellitus Heart disease Hypertension High cholesterol Stroke Grandfather Diabetes mellitus Heart disease Hypertension High cholesterol Grandmother Diabetes mellitus Heart disease Hypertension High cholesterol Sister Age: 59 COPD (chronic obstructive pulmonary disease) Diabetes mellitus Heart disease Hypertension High cholesterol Sister Age: 57 Hypertension High cholesterol Social History household members: family Smoking Status: Never smoker alcohol intake: current Assessment & Plan Assessment & Plan narrative: 60-year-old female with a history of type 2 diabetes, hypertension, hyperlipidemia, morbid obesity, hypothyroidism who presents to the hospital with acute renal failure 1. Acute renal failure likely related to prerenal azotemia - This is likely precipitated by persistent nausea vomiting and diarrhea which are now improved. ?- The patient very likely attempted to take her hydrochlorothiazide lisinopril as well which likely made this worse - She reports Imodium has helped her diarrhea and she has had no further nausea or vomiting since this morning - Abdominal CT and pelvic CT reveals no acute abnormality, no bowel obstruction, and a normal appearance of the appendix ?- continue IV fluids today, avoid nephrotoxic medications - Discontinued lisinopril, hydrochlorothiazide, and metformin at this time - creatinine much improved from 5.83 on admission to 3.09 today. If continued improvement in creatinine probable discharge home tomorrow. 2. Probable urinary tract infection ?- UA positive with wbc's and bacteria. Patient received ceftriaxone in the emergency department, will continue ceftriaxone x3 days. Will await urine culture results. White count markedly elevated on admission at 19.8 now normal, somewhat worsened by dehydration. 3. Type 2 diabetes ?- Patient clearly did not tolerate Trulicity. Will hold Trulicity at this time ?- Will resume Lantus, blood sugars are low at this time.? She currently has a blood sugar of 129.? Previously she was taking 80 units of Lantus. Have decreased to Lantus 40 units tonight given lowish blood sugar, will check glycohemoglobin as well ?- Will hold metformin given acute renal failure ?- A1c 9.3% 4. Hypertension ?- The patient's blood pressure well controlled at this point ?- She typically takes lisinopril, hydrochlorothiazide,? atenolol,? and amlodipine ?-Will hold hydrochlorothiazide and lisinopril, Will continue atenolol and amlodipine 5. Hyperlipidemia ?-Continue statin 6. Hypothyroidism ?- Continue L-thyroxine 7. Morbid obesity - Patient has lost 24 lb this week with decreased oral intake in addition to persistent nausea and vomiting DVT: low risk currently. Patient refused Heparin and SCDs. She reports she is a full code will note that her record accordingly Her sister Piedad is her surrogate decision maker Dispo: probable discharge home tomorrow if creatinine continues to improve. Time Spent With Patient Critical Care time: I spent a total of [] minutes of critical care time on this patient's care today; this time is exclusive of procedural time. Quality VTE Deep Vein Thrombosis/Pulmonary Embolism Present on Admission: No
[2021-02-03] MEDS: INSULIN GLARGINE 100 UNIT/ML 3ML PEN 40 UNIT SUBCUT (20:02)
[2021-02-03] MEDS: ATORVASTATIN 20 MG TABLET 80 MG PO (20:02)
[2021-02-03] MEDS: SENNOSIDES 8.6 MG TABLET PO (20:02)
[2021-02-03] MEDS: DOCUSATE 100 MG CAPSULE PO (20:02)
[2021-02-03] MEDS: cefTRIAXone 2,000 MG in SODIUM CHLORIDE 0.9% 100 ML 200 ML IV (22:58)
--- NOTE | 2021-02-03 23:57 | PC.NURSE ---
SHIFT Report received, care assumed 193. Pt A&Ox4. Denies pain. VSS. 1* AVB on tele. Heart and lung sounds difficult to discern d/t body habitus. Slight hemosiderin staining and trace edema noted to BLE; pt declines CECILIO mu and SCD's. Urinating frequently, independently. Denies nausea. C/o constipation but declines laxative, states she can feel movement.
[2021-02-04 00:11] VITALS: O2SAT 97
[2021-02-04] MEDS: LACTATED RINGERS 1,000 ML 150 ML IV ×2 (00:32→07:58)
[2021-02-04 00:51] VITALS: BP 133/79; PULSE 58; RESP 18; TEMP 36.3; O2SAT 97
[2021-02-04 04:00] VITALS: BP 141/52; PULSE 66; RESP 18; TEMP 36.5; O2SAT 96
[2021-02-04 05:45] LABS: Add Manual Diff / Slide Review NO; Basophils Absolute Auto 0 /uL (0-100); Basophils Percent Auto 0.5 % (0-2); Eosinophils Absolute Auto 300 /uL (0-450); Eosinophils Percent Auto 4.2 % (2-4); Hematocrit 34.3 % (36-46); Hemoglobin 11.4 g/dL (12.0-16.0); Lymphocytes Absolute Auto 2100 /uL (1100-4500); Lymphocytes Percent Auto 25.5 % (25-40); Mean Corpuscular HGB Conc 33.1 % (30-36); Mean Corpuscular Hemoglobin 27.9 PG (26-34); Mean Corpuscular Volume 84.5 fL (80-100); Monocytes Absolute Auto 600 /uL (0-900); Monocytes Percent Auto 6.8 % (3-14); Neutrophils Absolute Auto 5200 /uL (1500-7000); Platelet Count 368 X10^3/uL (150-400); Red Blood Cell Count 4.07 X10^6/uL (4.0-5.2); Red Cell Distribution Width 14.4 % (11.6-14.8); White Blood Cell Count 8.3 X10^3/uL (4.5-11.0)
[2021-02-04 05:48] LABS: BUN Creatinine Ratio 14.2 (6-22); Blood Urea Nitrogen 31 mg/dL (7-17); Calcium 8.6 mg/dL (8.4-10.2); Carbon Dioxide 29 mmol/L (22-32); Chloride 104 mmol/L (98-107); Estimated Glomerular Filt Rate 22.8 mL/min (>60); Glucose 105 mg/dL (80-110); HEMOLYSIS < 15 (0-50); Sodium 140 mmol/L (137-145)
[2021-02-04] MEDS: LEVOTHYROXINE 125 MCG TABLET PO (06:04)
[2021-02-04] MEDS: PANTOPRAZOLE DR 20 MG TABLET PO (06:04)
[2021-02-04 08:00] VITALS: BP 145/69; PULSE 63; RESP 18; TEMP 36.2; O2SAT 97
[2021-02-04 08:46] VITALS: O2SAT 96
[2021-02-04] MEDS: atenoloL 50 MG TABLET PO (10:28)
[2021-02-04] MEDS: AMLODIPINE 5 MG TABLET PO (10:28)
[2021-02-04 12:00] VITALS: BP 150/81; PULSE 57; RESP 18; TEMP 36.4; O2SAT 98
--- NOTE | 2021-02-04 18:20 | PM.PN.1 ---
Subjective Subjective Interval history: Patient denies any acute complaints this morning. She reports that her n/v/d has resolved. She reports being able to keep down all her PO intake. Exam Vital Signs (past 8 hours): - 02/04/21 12:00 Temperature 97.6 F Pulse Rate 57 L Respiratory Rate 18 Blood Pressure 150/81 H Pulse Oximetry 98 Oxygen Delivery Method Room Air Oxygen Flow Rate 0 Const Other: Patient sitting in chair comfortably upon my entering the room, in no apparent acute distress. Eyes Other: No scleral icterus appreciated. Resp Other: Clear to auscultation bilaterally. Cardio Other: Regular rate and rhythm. S1 and S2 heart sounds auscultated with no extra heart sounds or murmurs appreciated. No peripheral edema noted. GI Other: Soft, non-distended, non-tender. Bowel sounds present. Extrem Other: Palpable and equal radial and dorsalis pedis pulses bilaterally. Objective Labs Result Diagrams: 02/04/21 05:22 02/04/21 05:22 Labs: Laboratory Results - last 24 hr 02/04/21 02/04/21 05:22 05:22 WBC 8.3 RBC 4.07 Hgb 11.4 L Hct 34.3 L MCV 84.5 MCH 27.9 MCHC 33.1 RDW 14.4 Plt Count 368 Neut % (Auto) 63.0 Lymph % (Auto) 25.5 [place] % (Auto) 6.8 Eos % (Auto) 4.2 H Baso % (Auto) 0.5 Neut # (Auto) 5200 Lymph # (Auto) 2100 [place] # (Auto) 600 Eos # (Auto) 300 Baso # (Auto) 0 Sodium 140 Potassium 4.0 Chloride 104 Carbon Dioxide 29 BUN 31 H Creatinine 2.19 H Estimated GFR 22.8 L BUN/Creatinine Ratio 14.2 Glucose 105 Calcium 8.6 [facility] Medical History (Updated 02/01/21 @ 23:12 by Lisa Dunn MD) Allergy (Unknown) Alopecia (1986) Ankle pain (2014) Asthma (~07/2010) Cataracts, bilateral (2013) Chickenpox (~1959) Chronic back pain (1959) Chronic cough (2017) Diabetes (2014) Duodenal ulcer (1983) Eczema (1986) Fibromyalgia (2009) Foot pain (Unknown) Generalized headaches (1971) Hemorrhoids (2013) History of recurrent ear infection (1971) History of tinnitus (1979) Hyperlipidemia (~07/2010) Hypertension (2006) Hypothyroidism (2010) Migraines (1971) Ovarian cyst (2010) Recurrent sinusitis (1971) Seasonal depression (2014) Thyroid nodule (2010) Urinary incontinence (2016) Vertigo (1979) Surgical History History of third molar tooth extraction Status post colonoscopy Family History Brother Age: 63 Diabetes mellitus Heart disease Hypertension High cholesterol Drug abuse Brother Age: 56 Diabetes mellitus Hypertension High cholesterol Stroke Father Diabetes mellitus Heart disease Hypertension High cholesterol Mother Diabetes mellitus Heart disease Hypertension High cholesterol Stroke Grandfather Diabetes mellitus Heart disease Hypertension High cholesterol Grandmother Diabetes mellitus Heart disease Hypertension High cholesterol Sister Age: 59 COPD (chronic obstructive pulmonary disease) Diabetes mellitus Heart disease Hypertension High cholesterol Sister Age: 57 Hypertension High cholesterol Social History household members: family Smoking Status: Never smoker alcohol intake: current Assessment & Plan Assessment & Plan narrative: Assessment: 1. Possible gastroparesis 2. Pre-renal JENSEN 3. DM II, insulin-dependent 4. Hypertension 5. Hypothyroidism 6. Vitamin D deficiency Plan: 1. Patient's HPI is not entirely consistent with this diagnosis but it's likely given that other etiologies have been effectively ruled-out. Patient is aware to follow-up with PCP for possible nuclear emptying study. 2. Likely due to n/v from problem 1. Cr continued to improve toward baseline with fluid resuscitation. 3. Well maintained on insulin sliding scale inpatient. 4. Resumed home amlodipine 5 mg daily and atenolol 50 mg daily. Held lisinopril 40 mg daily and HCTZ, given pre-renal JENSEN. 5. Resumed home levothyroxine. 6. Resume home vitamin D. VTE prophylaxis: Heparin 5000 units bid Disposition: Home Time Spent With Patient Critical Care time: I spent a total of [] minutes of critical care time on this patient's care today; this time is exclusive of procedural time. Quality VTE Deep Vein Thrombosis/Pulmonary Embolism Present on Admission: No
--- NOTE | 2021-02-07 23:31 | P.DS_ITS ---
History of Present Illness History of Present Illness Chief complaint: T2DM Narrative: The patient is a 60-year-old female with a history of type 2 diabetes, hyperlipidemia, hypertension, morbid obesity, who was in her usual state of health until about 1 week ago.? Patient started Trulicity for diabetic manageme nt.? She noted significant improvement of her blood sugar.? However on Thursday she developed significant diarrhea.? She subsequently developed nausea.? This then proceeded to? vomiting associated with the diarrhea.? She attempted to? keep up with her fluid loss by drinking lots of fluids.? However she continued to have significant diarrhea with up to 27 stools per day.? She had some mid epigastric pain which was similar to a prior history of peptic ulcer disease.? She did not however have hematemesis melena or bright red blood per rectum.? She had no fever.? She does report chills.? She denies any shortness of breath or chest pain.? She had no dysuria hematuria or pyuria.? She does report a history of rash and has no joint pains or lower extremity edema.? The patient was evaluated in the? at the walk-in clinic a few days ago.? She was given Zofran and Imodium which helped her diarrhea significantly.? However she continued to feel poorly and presented to the emergency room for evaluation.? In the emergency department she was afebrile.? Her white count was elevated at 19.8.? Significant Violeta she was noted to have a BUN of 61 with a creatinine of 5.2.? Her baseline creatinine is 1.2 with BUN of 20.? The patient also was found to have a positive UA, with 30-100 wbc's, moderate bacteria, with 2+ mucus.? She was given IV ceftriaxone for presumed urinary tract infection.? Patient prev iously was on metformin in addition to lisinopril for blood pressure control.? She also was on hydrochlorothiazide.? All of which may have contributed to her worsening renal function.? Patient is admitted to the hospital for treatment and evaluation of her acute renal failure. Discharge Providers Provider Discharge Date: 02/04/21 Primary care physician: Scott Judge DO Discharge provider: Shavon Mcintyre MD Summary Hospital Course Discharge Diagnosis: 1. Possible gastroparesis 2. Pre-renal JENSEN 3. DM II, insulin-dependent 4. Hypertension 5. Hypothyroidism 6. Vitamin D deficiency [facility] Medical History Allergy (Unknown) Alopecia (1986) Ankle pain (2015) Asthma (~07/2010) Cataracts, bilateral (2013) Chickenpox (~1960) Chronic back pain (1960) Chronic cough (2017) Diabetes (2013) Duodenal ulcer (1983) Eczema (1986) Fibromyalgia (2009) Foot pain (Unknown) Generalized headaches (1971) Hemorrhoids (2013) History of recurrent ear infection (1971) History of tinnitus (1979) Hyperlipidemia (~07/2010) Hypertension (2007) Hypothyroidism (2010) Migraines (1971) Ovarian cyst (2010) Recurrent sinusitis (1971) Seasonal depression (2014) Thyroid nodule (2010) Urinary incontinence (2016) Vertigo (1979) Work-related stress Surgical History History of third molar tooth extraction Status post colonoscopy Family History Brother Age: 63 Diabetes mellitus Heart disease Hypertension High cholesterol Drug abuse Brother Age: 56 Diabetes mellitus Hypertension High cholesterol Stroke Father Diabetes mellitus Heart disease Hypertension High cholesterol Mother Diabetes mellitus Heart disease Hypertension High cholesterol Stroke Grandfather Diabetes mellitus Heart disease Hypertension High cholesterol Grandmother Diabetes mellitus Heart disease Hypertension High cholesterol Sister Age: 59 COPD (chronic obstructive pulmonary disease) Diabetes mellitus Heart disease Hypertension High cholesterol Sister Age: 57 Hypertension High cholesterol Social History household members: family Smoking Status: Never smoker alcohol intake: current Discharge Assessment & Plan Assessment and Plan Assessment: 1. Possible gastroparesis 2. Pre-renal JENSEN 3. DM II, insulin-dependent 4. Hypertension 5. Hypothyroidism 6. Vitamin D deficiency Plan of Treatment: 1. Patient's HPI is not entirely consistent with this diagnosis but it's likely given that other etiologies have been effectively ruled-out. Patient is aware to follow-up with PCP for possible nuclear emptying study. 2. Likely due to n/v from problem 1. Cr continued to improve toward baseline with fluid resuscitation. 3. Well maintained on insulin sliding scale inpatient. 4. Resumed home amlodipine 5 mg daily and atenolol 50 mg daily. Held lisinopril 40 mg daily and HCTZ, given pre-renal JENSEN. 5. Resumed home levothyroxine. 6. Resume home vitamin D. Discharge Plan Discharge Med Rec/Prescriptions Prescriptions: No Action ondansetron HCl [Zofran] 4 mg tablet 4 mg PO Q8H PRN (Reason: nausea and vomiting) Qty: 14 0RF Vitamin D3 4,000 UNIT capsule 4,000 unit PO DAILY Qty: 0 0RF amlodipine 5 mg tablet See Rx Instructions .ROUTE .COMPLEX Qty: 90 2RF Dose Instruction: TAKE 1 TABLET BY MOUTH ONCE DAILY. FOLLOW-UP WITH PCP IN JULY FOR ROUTINE FOLLOW-UP BEFORE FUTURE FILLS Rx Instructions: TAKE 1 TABLET BY MOUTH ONCE DAILY. FOLLOW-UP WITH PCP IN JULY FOR ROUTINE FOLLOW-UP BEFORE FUTURE FILLS atenolol 50 mg tablet See Rx Instructions .ROUTE .COMPLEX Qty: 90 2RF Dose Instruction: Take 1 tablet by mouth once daily Rx Instructions: Take 1 tablet by mouth once daily atorvastatin 80 mg tablet 80 mg PO DAILY Qty: 90 0RF hydrochlorothiazide 25 mg tablet 25 mg PO QDAY Qty: 90 0RF metformin 1,000 mg tablet See Rx Instructions .ROUTE .COMPLEX Qty: 180 0RF Dose Instruction: Take 1 tablet by mouth twice daily Rx Instructions: Take 1 tablet by mouth twice daily levothyroxine [Euthyrox] 125 mcg tablet See Rx Instructions .ROUTE .COMPLEX Qty: 60 0RF Dose Instruction: TAKE 1 TABLET BY MOUTH ONCE DAILY, 30 MINUTES BEFORE EATING. Rx Instructions: TAKE 1 TABLET BY MOUTH ONCE DAILY, 30 MINUTES BEFORE EATING. lisinopril 40 mg tablet 40 mg PO DAILY Qty: 90 0RF benzonatate 100 mg capsule 100 mg PO BID PRN (Reason: cough) Qty: 60 3RF Trulicity 3 mg/0.5 mL pen injector 3 mg SUBCUT QWEEK Qty: 2 5RF fluticasone propionate 50 mcg/actuation spray,suspension 1 spray Intranasal DAILY 0RF mupirocin calcium 2 % cream 1 applictn TOP DAILY 0RF Lantus U-100 Insulin 100 unit/mL solution 80 unit SUBCUT DAILY 0RF albuterol sulfate [Ventolin HFA] 90 mcg/actuation HFA aerosol inhaler 2 puff inhalation Q4HP 0RF Visit Report/Discharge Packet Referrals: Scott Judge DO [Primary Care Provider] - Discharge Data Primary Care Provider: Scott Judge Attending Provider: Scott Judge
== END 2021-02-04 13:05 | disposition home or self-care (01) | DRG 683 ==
LOC: ED 13:51 → AC 21:43
PROVIDERS: Emergency Medicine; Internal Medicine; Admitting Provider Internal Medicine; Emergency Provider Physician Assistant; PCP Family Medicine; Referring Provider Emergency Medicine; Visit Provider Internal Medicine
DX: N17.9 Acute kidney failure, unspecified (principal); N39.0 Urinary tract infection, site not specified; Z68.42 Body mass index [BMI] 45.0-49.9, adult; E66.01 Morbid (severe) obesity due to excess calories; K31.84 Gastroparesis; E11.9 Type 2 diabetes mellitus without complications; I10 Essential (primary) hypertension; E78.5 Hyperlipidemia, unspecified; E03.9 Hypothyroidism, unspecified; E55.9 Vitamin D deficiency, unspecified; Z79.4 Long term (current) use of insulin; Z79.84 Long term (current) use of oral hypoglycemic drugs; Z20.822 Contact with and (suspected) exposure to COVID-19
CPT/HCPCS: 36415; 71045; 74176; 80048; 80053; 81015; 82962; 83036; 83605; 83690; 83880; 84145; 85025; 87040; 87077; 87086; 87186; 87635; 93005; 93010; 94762; 96361; 96365; 99284; 99285; C9803; J0696

== ENCOUNTER → 2021-02-07 10:27 | Outpatient (CLI) | payer BC, SELFPAY ==
[2021-02-01 22:13] VITALS: BMI 46.0
--- NOTE | 2021-02-07 16:46 | DIAB.MNTFU ---
Follow-up Diabetes Medical Nutrition Therapy Assessment Name: Shawnee Castellano Date: 02/07/21 Time: 1030a-12p Dx: Type II Diabetes Shawnee presents with sister, Piedad, for diabetes follow-up. Recent hospitalization after SE of Trulicity. Though she does not think Trulicity is the sole reason for her hospitalization, she was experiencing nausea, emesis, and diarrhea prior to admit. She was found to have a UTI (from excessive diarrhea perhaps?). Kidney function impacted with drop in GFR. 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 Currently on full dose of Metformin. Pending labs next week and GFR, may benefit from reduced dose or d/c of Metformin to preserve kidney health. Plans to hold Trulicity at this time, but discussed with provider about restarting if BG raise. Currently taking 40 u glargine HS + Metformin. Seems that she may benefit from holding the Trulicity until seeing an endo, but unclear if hospitalization is a direct result of med. Eating 2 x per day. Diagnosed with gastroparesis. Plans to see GI specialist, no appt yet. Has questions about seeing an clinical team lead. Has experience with seeing an endo for thyroid. Shawnee reports potential gallstones per her hospital visit, no notes regarding this in EMR. States she is unsure what to eat. Has d/c'd coffee beverages. Anthropometrics: Ht: 62 Wt: 130.8kg last admit wt (287.7#) Weight history: 290.4# (01/23/21) Physical Activity: No program. Plans to take hula and gracy chi once in [place]. Plans to go to [place] for two months to manage health and stress. Self-Monitoring Blood Glucose: Last two FBG in range. HS readings elevated. Date Pre Post Pre Post Pre Post HS 02/04 194 02/05 162 208 02/06 111 210 02/07 133 Diabetes Medications: 40u glargine HS Metformin 1000mg BID Trulicity on hold Pertinent Labs: 02/04/21 HgA1c 9.3% H GFR: 22.8 L Cr: 219 H Past Medical History: (Last Updated 02/06/21 @ 15:28 by Scott Judge DO) Allergy (Unknown) Alopecia (1986) Ankle pain (2014) Asthma (~07/2010) Cataracts, bilateral (2013) Chickenpox (~1960) Chronic back pain (1960) since , slip 5th disc 2015. Chronic cough (2017) Diabetes (2014) Duodenal ulcer (1983) Eczema (1986) Fibromyalgia (2010) Foot pain (Unknown) Generalized headaches (1971) Hemorrhoids (2013) History of recurrent ear infection (1971) History of tinnitus (1979) Hyperlipidemia (~07/2010) Hypertension (2007) Hypothyroidism (2010) Migraines (1971) Ovarian cyst (2010) Recurrent sinusitis (1971) Seasonal depression (2014) Thyroid nodule (2010) Urinary incontinence (2016) Vertigo (1979) Work-related stress Nutrition Rx: Carbohydrates: Meal: 45g Snack: 15-30g Nutrition Diagnosis: Inconsistent protein intake r/t stage of change aeb food diary - improved Physical inactivity r/t <150 min activity per week aeb pt report- in progress Nutrition and food related knowledge deficit r/t new dx gastroparesis and reduced kidney funct aeb EMR notes and pt report. Intervention: This participant was very receptive. Provided appropriate educational handouts. Discussed the following topics: Blood sugar review and trends. Impact of food intake on results. Meal and snack ideas Kidney health nutrition: sodium, protein reccs, hydration Gallstone nutrition: fat intake Gastroparesis pathophysiology and nutrition: balanced lower fiber options ie balanced smoothies Metformin reccs for kidney disease Specialist: chain link fence installer and endo Physical activity and stress management plan Created SMART goals for patient self-care and success. Goals: Try seated exercise video- not met Steam vegetables - not met Add Lantus back at 10 u to start- met After labs, discuss metformin options with provider- new Start hula and gracy chi- new If making smoothies, add kidney-friendly protein Follow-up: JOSIE CHEUNG follow-up in April Jocelyn Peterson RDN, SHERLYNES Certified Diabetes Care and Control Room Technician P: [phone] Thank you for this referral
--- NOTE | 2021-02-07 23:31 | P.DS_ITS ---
History of Present Illness History of Present Illness Chief complaint: T2DM Narrative: The patient is a 60-year-old female with a history of type 2 diabetes, hyperlipidemia, hypertension, morbid obesity, who was in her usual state of health until about 1 week ago.? Patient started Trulicity for diabetic manageme nt.? She noted significant improvement of her blood sugar.? However on Thursday she developed significant diarrhea.? She subsequently developed nausea.? This then proceeded to? vomiting associated with the diarrhea.? She attempted to? keep up with her fluid loss by drinking lots of fluids.? However she continued to have significant diarrhea with up to 27 stools per day.? She had some mid epigastric pain which was similar to a prior history of peptic ulcer disease.? She did not however have hematemesis melena or bright red blood per rectum.? She had no fever.? She does report chills.? She denies any shortness of breath or chest pain.? She had no dysuria hematuria or pyuria.? She does report a history of rash and has no joint pains or lower extremity edema.? The patient was evaluated in the? at the walk-in clinic a few days ago.? She was given Zofran and Imodium which helped her diarrhea significantly.? However she continued to feel poorly and presented to the emergency room for evaluation.? In the emergency department she was afebrile.? Her white count was elevated at 19.8.? Significant Violeta she was noted to have a BUN of 61 with a creatinine of 5.2.? Her baseline creatinine is 1.2 with BUN of 20.? The patient also was found to have a positive UA, with 30-100 wbc's, moderate bacteria, with 2+ mucus.? She was given IV ceftriaxone for presumed urinary tract infection.? Patient prev iously was on metformin in addition to lisinopril for blood pressure control.? She also was on hydrochlorothiazide.? All of which may have contributed to her worsening renal function.? Patient is admitted to the hospital for treatment and evaluation of her acute renal failure. Discharge Providers Provider Discharge Date: 02/04/21 Primary care physician: Scott Judge DO Discharge provider: Shavon Mcintyre MD Summary Hospital Course Discharge Diagnosis: 1. Possible gastroparesis 2. Pre-renal JENSEN 3. DM II, insulin-dependent 4. Hypertension 5. Hypothyroidism 6. Vitamin D deficiency [facility] Medical History Allergy (Unknown) Alopecia (1986) Ankle pain (2015) Asthma (~07/2010) Cataracts, bilateral (2013) Chickenpox (~1960) Chronic back pain (1960) Chronic cough (2017) Diabetes (2013) Duodenal ulcer (1983) Eczema (1986) Fibromyalgia (2009) Foot pain (Unknown) Generalized headaches (1971) Hemorrhoids (2013) History of recurrent ear infection (1971) History of tinnitus (1979) Hyperlipidemia (~07/2010) Hypertension (2007) Hypothyroidism (2010) Migraines (1971) Ovarian cyst (2010) Recurrent sinusitis (1971) Seasonal depression (2014) Thyroid nodule (2010) Urinary incontinence (2016) Vertigo (1979) Work-related stress Surgical History History of third molar tooth extraction Status post colonoscopy Family History Brother Age: 63 Diabetes mellitus Heart disease Hypertension High cholesterol Drug abuse Brother Age: 56 Diabetes mellitus Hypertension High cholesterol Stroke Father Diabetes mellitus Heart disease Hypertension High cholesterol Mother Diabetes mellitus Heart disease Hypertension High cholesterol Stroke Grandfather Diabetes mellitus Heart disease Hypertension High cholesterol Grandmother Diabetes mellitus Heart disease Hypertension High cholesterol Sister Age: 59 COPD (chronic obstructive pulmonary disease) Diabetes mellitus Heart disease Hypertension High cholesterol Sister Age: 57 Hypertension High cholesterol Social History household members: family Smoking Status: Never smoker alcohol intake: current Discharge Assessment & Plan Assessment and Plan Assessment: 1. Possible gastroparesis 2. Pre-renal JENSEN 3. DM II, insulin-dependent 4. Hypertension 5. Hypothyroidism 6. Vitamin D deficiency Plan of Treatment: 1. Patient's HPI is not entirely consistent with this diagnosis but it's likely given that other etiologies have been effectively ruled-out. Patient is aware to follow-up with PCP for possible nuclear emptying study. 2. Likely due to n/v from problem 1. Cr continued to improve toward baseline with fluid resuscitation. 3. Well maintained on insulin sliding scale inpatient. 4. Resumed home amlodipine 5 mg daily and atenolol 50 mg daily. Held lisinopril 40 mg daily and HCTZ, given pre-renal JENSEN. 5. Resumed home levothyroxine. 6. Resume home vitamin D. Discharge Plan Discharge Med Rec/Prescriptions Prescriptions: No Action ondansetron HCl [Zofran] 4 mg tablet 4 mg PO Q8H PRN (Reason: nausea and vomiting) Qty: 14 0RF Vitamin D3 4,000 UNIT capsule 4,000 unit PO DAILY Qty: 0 0RF amlodipine 5 mg tablet See Rx Instructions .ROUTE .COMPLEX Qty: 90 2RF Dose Instruction: TAKE 1 TABLET BY MOUTH ONCE DAILY. FOLLOW-UP WITH PCP IN JULY FOR ROUTINE FOLLOW-UP BEFORE FUTURE FILLS Rx Instructions: TAKE 1 TABLET BY MOUTH ONCE DAILY. FOLLOW-UP WITH PCP IN JULY FOR ROUTINE FOLLOW-UP BEFORE FUTURE FILLS atenolol 50 mg tablet See Rx Instructions .ROUTE .COMPLEX Qty: 90 2RF Dose Instruction: Take 1 tablet by mouth once daily Rx Instructions: Take 1 tablet by mouth once daily atorvastatin 80 mg tablet 80 mg PO DAILY Qty: 90 0RF hydrochlorothiazide 25 mg tablet 25 mg PO QDAY Qty: 90 0RF metformin 1,000 mg tablet See Rx Instructions .ROUTE .COMPLEX Qty: 180 0RF Dose Instruction: Take 1 tablet by mouth twice daily Rx Instructions: Take 1 tablet by mouth twice daily levothyroxine [Euthyrox] 125 mcg tablet See Rx Instructions .ROUTE .COMPLEX Qty: 60 0RF Dose Instruction: TAKE 1 TABLET BY MOUTH ONCE DAILY, 30 MINUTES BEFORE EATING. Rx Instructions: TAKE 1 TABLET BY MOUTH ONCE DAILY, 30 MINUTES BEFORE EATING. lisinopril 40 mg tablet 40 mg PO DAILY Qty: 90 0RF benzonatate 100 mg capsule 100 mg PO BID PRN (Reason: cough) Qty: 60 3RF Trulicity 3 mg/0.5 mL pen injector 3 mg SUBCUT QWEEK Qty: 2 5RF fluticasone propionate 50 mcg/actuation spray,suspension 1 spray Intranasal DAILY 0RF mupirocin calcium 2 % cream 1 applictn TOP DAILY 0RF Lantus U-100 Insulin 100 unit/mL solution 80 unit SUBCUT DAILY 0RF albuterol sulfate [Ventolin HFA] 90 mcg/actuation HFA aerosol inhaler 2 puff inhalation Q4HP 0RF Visit Report/Discharge Packet Referrals: Scott Judge DO [Primary Care Provider] - Discharge Data Primary Care Provider: Scott Judge Attending Provider: Scott Judge
== END ==
PROVIDERS: PCP Family Medicine; Referring Provider Family Medicine; Visit Provider Family Medicine
DX: E11.9 Type 2 diabetes mellitus without complications (principal)
CPT/HCPCS: 97803

== ENCOUNTER → 2021-02-11 11:46 | Outpatient (CLI) | payer BC, SELFPAY ==
[2021-02-01 22:13] VITALS: BMI 46.0
[2021-02-11 12:59] LABS: Blood Urea Nitrogen 16 mg/dL (7-17); Calcium 8.5 mg/dL (8.4-10.2); Carbon Dioxide 34 mmol/L (22-32); Chloride 99 mmol/L (98-107); Estimated Glomerular Filt Rate 40.6 mL/min (>60); Glucose 118 mg/dL (80-110); HEMOLYSIS 27 (0-50); Potassium 3.9 mmol/L (3.4-5.1); Sodium 139 mmol/L (137-145)
[2021-02-11 14:41] LABS: Hemoglobin A1C% w Est Avg Glu 8.3 % (4.0-6.0)
== END ==
PROVIDERS: PCP Family Medicine; Referring Provider Family Medicine; Visit Provider Family Medicine
DX: N17.9 Acute kidney failure, unspecified (principal); E11.9 Type 2 diabetes mellitus without complications; Z79.4 Long term (current) use of insulin
CPT/HCPCS: 36415; 80048; 83036

== ENCOUNTER → 2021-04-15 11:29 | Outpatient (CLI) | payer BC, SELFPAY ==
[2021-02-01 22:13] VITALS: BMI 46.0
[2021-04-15 12:27] LABS: Hemoglobin A1C% w Est Avg Glu 7.9 % (4.0-6.0)
[2021-04-15 13:00] LABS: BUN Creatinine Ratio 18.4 (6-22); Blood Urea Nitrogen 21 mg/dL (7-17); Calcium 9.8 mg/dL (8.4-10.2); Carbon Dioxide 31 mmol/L (22-32); Chloride 98 mmol/L (98-107); Estimated Glomerular Filt Rate 48.5 mL/min (>60); Glucose 149 mg/dL (80-110); HEMOLYSIS < 15 (0-50); Sodium 136 mmol/L (137-145)
[2021-04-15 13:22] LABS: Free T3, Triiodothyronine Free 2.69 pg/mL (2.77-5.27); Free T4, Direct Thyroxine 1.52 ng/dL (0.78-2.19)
[2021-04-15 13:35] LABS: Thyroid Stimulating Hormone 2.28 uIU/mL (0.47-4.68)
== END ==
PROVIDERS: PCP Family Medicine; Referring Provider Family Medicine; Visit Provider Family Medicine
DX: N17.9 Acute kidney failure, unspecified (principal); I10 Essential (primary) hypertension; E11.9 Type 2 diabetes mellitus without complications; Z79.4 Long term (current) use of insulin; E03.9 Hypothyroidism, unspecified
CPT/HCPCS: 36415; 80048; 83036; 84439; 84443; 84481

== ENCOUNTER → 2021-07-18 12:18 | Outpatient (CLI) | payer BC, SELFPAY ==
[2021-02-01 22:13] VITALS: BMI 46.0
[2021-07-18 13:34] LABS: Alanine Aminotransferase 15 IU/L (<35); Albumin 4.1 g/dL (3.5-5.0); Albumin Globulin Ratio 1.1 (1.0-2.8); Alkaline Phosphatase 85 U/L (38-126); Aspartate Aminotransferase 20 IU/L (14-36); BUN Creatinine Ratio 18.8 (6-22); Bilirubin Total 0.6 mg/dL (0.2-1.3); Blood Urea Nitrogen 22 mg/dL (7-17); Calcium 9.2 mg/dL (8.4-10.2); Carbon Dioxide 31 mmol/L (22-32); Chloride 102 mmol/L (98-107); Cholesterol 200 mg/dL (140-199); Estimated Glomerular Filt Rate 53 mL/min (>60); Globulin 3.9 g/dL (1.7-4.1); Glucose 144 mg/dL (80-110); HDL Cholesterol 31 mg/dL (40-60); HEMOLYSIS < 15 (0-50); LDL Cholesterol Calculated 123 mg/dL (<100); Sodium 140 mmol/L (137-145); Triglycerides 228 mg/dL (35-150)
[2021-07-18 13:39] LABS: Hemoglobin A1C% w Est Avg Glu 7.5 % (4.0-6.0)
== END ==
PROVIDERS: PCP Family Medicine; Referring Provider Family Medicine; Visit Provider Family Medicine
DX: E11.9 Type 2 diabetes mellitus without complications (principal); E78.5 Hyperlipidemia, unspecified; Z79.4 Long term (current) use of insulin
CPT/HCPCS: 36415; 80053; 80061; 83036

== ENCOUNTER → 2021-10-14 10:13 | Outpatient (CLI) | payer BC, SELFPAY ==
[2021-02-01 22:13] VITALS: BMI 46.0
[2021-10-14 10:47] LABS: Add Manual Diff / Slide Review NO; Basophils Absolute Auto 0 /uL (0-100); Basophils Percent Auto 0.5 % (0-2); Eosinophils Absolute Auto 300 /uL (0-450); Eosinophils Percent Auto 3.4 % (2-4); Hematocrit 36.2 % (36-46); Lymphocytes Absolute Auto 2200 /uL (1100-4500); Lymphocytes Percent Auto 24.1 % (25-40); Mean Corpuscular HGB Conc 33.2 % (30-36); Mean Corpuscular Hemoglobin 27.6 PG (26-34); Monocytes Absolute Auto 400 /uL (0-900); Monocytes Percent Auto 4.4 % (3-14); Neutrophils Absolute Auto 6000 /uL (1500-7000); Neutrophils Percent Auto 67.6 % (50-75); Platelet Count 363 X10^3/uL (150-400); Red Blood Cell Count 4.36 X10^6/uL (4.0-5.2); Red Cell Distribution Width 14.8 % (11.6-14.8); White Blood Cell Count 8.9 X10^3/uL (4.5-11.0)
[2021-10-14 11:07] LABS: Hemoglobin A1C% w Est Avg Glu 7.1 % (4.0-6.0)
[2021-10-14 11:52] LABS: Alanine Aminotransferase 15 IU/L (<35); Albumin Globulin Ratio 1.2 (1.0-2.8); Alkaline Phosphatase 82 U/L (38-126); Aspartate Aminotransferase 17 IU/L (14-36); Bilirubin Total 0.4 mg/dL (0.2-1.3); Blood Urea Nitrogen 22 mg/dL (7-17); Carbon Dioxide 29 mmol/L (22-32); Chloride 99 mmol/L (98-107); Estimated Glomerular Filt Rate 57 mL/min (>60); Globulin 3.3 g/dL (1.7-4.1); Glucose 114 mg/dL (80-110); HEMOLYSIS < 15 (0-50); Potassium 4.2 mmol/L (3.4-5.1); Sodium 138 mmol/L (137-145); Total Protein 7.3 g/dL (6.3-8.2)
[2021-10-14 12:01] LABS: Creatinine Urine Random 110.9 mg/dL
[2021-10-14 12:15] LABS: Free T3, Triiodothyronine Free 2.71 pg/mL (2.77-5.27); Free T4, Direct Thyroxine 1.57 ng/dL (0.78-2.19)
[2021-10-14 12:19] LABS: Microalbumi Creatinin Ratio Ur 295.7 ug/mg CR (<30); Microalbumin Urine Random 32.8 mg/dL (0-1.6)
[2021-10-14 12:29] LABS: Thyroid Stimulating Hormone 1.51 uIU/mL (0.47-4.68)
== END ==
PROVIDERS: PCP Family Medicine; Referring Provider Family Medicine; Visit Provider Family Medicine
DX: E11.21 Type 2 diabetes mellitus with diabetic nephropathy (principal); E11.9 Type 2 diabetes mellitus without complications; E66.01 Morbid (severe) obesity due to excess calories; E78.5 Hyperlipidemia, unspecified; I10 Essential (primary) hypertension; Z79.4 Long term (current) use of insulin
CPT/HCPCS: 36415; 80053; 82043; 82570; 83036; 84439; 84443; 84481; 85025

== ENCOUNTER → 2022-04-22 15:58 | Outpatient (CLI) | payer BC, SELFPAY ==
[2021-02-01 22:13] VITALS: BMI 46.0
== END ==
PROVIDERS: PCP Family Medicine; Visit Provider Physician Assistant Medical
DX: R10.9 Unspecified abdominal pain (principal)
CPT/HCPCS: 87086

== ENCOUNTER → 2022-05-13 13:46 | Outpatient (CLI) | payer BC, SELFPAY ==
[2021-02-01 22:13] VITALS: BMI 46.0
[2022-05-13 15:37] LABS: Add Manual Diff / Slide Review NO; Basophils Absolute Auto 100 /uL (0-100); Basophils Percent Auto 0.7 % (0-2); Eosinophils Absolute Auto 400 /uL (0-450); Hematocrit 36.9 % (36-46); Hemoglobin 12.1 g/dL (12.0-16.0); Lymphocytes Absolute Auto 2000 /uL (1100-4500); Lymphocytes Percent Auto 23.3 % (25-40); Mean Corpuscular HGB Conc 32.9 % (30-36); Mean Corpuscular Hemoglobin 27.7 PG (26-34); Mean Corpuscular Volume 84.1 fL (80-100); Monocytes Absolute Auto 400 /uL (0-900); Monocytes Percent Auto 4.3 % (3-14); Neutrophils Absolute Auto 5800 /uL (1500-7000); Neutrophils Percent Auto 66.7 % (50-75); Platelet Count 361 X10^3/uL (150-400); Red Blood Cell Count 4.39 X10^6/uL (4.0-5.2); Red Cell Distribution Width 14.4 % (11.6-14.8); White Blood Cell Count 8.7 X10^3/uL (4.5-11.0)
[2022-05-13 15:45] LABS: Hemoglobin A1C% w Est Avg Glu 8.9 % (4.0-6.0)
[2022-05-13 16:09] LABS: Alanine Aminotransferase 23 IU/L (<35); Albumin 3.9 g/dL (3.5-5.0); Albumin Globulin Ratio 1.1 (1.0-2.8); Alkaline Phosphatase 96 U/L (38-126); Aspartate Aminotransferase 20 IU/L (14-36); BUN Creatinine Ratio 18.9 (6-22); Bilirubin Total 0.6 mg/dL (0.2-1.3); Blood Urea Nitrogen 20 mg/dL (7-17); Calcium 9.1 mg/dL (8.4-10.2); Carbon Dioxide 30 mmol/L (22-32); Chloride 99 mmol/L (98-107); Cholesterol 175 mg/dL (140-199); Estimated Glomerular Filt Rate 59 mL/min (>60); Globulin 3.4 g/dL (1.7-4.1); Glucose 138 mg/dL (80-110); HDL Cholesterol 40 mg/dL (40-60); HEMOLYSIS < 15 (0-50); LDL Cholesterol Calculated 91 mg/dL (<100); Potassium 4.4 mmol/L (3.4-5.1); Sodium 138 mmol/L (137-145); Total Protein 7.3 g/dL (6.3-8.2); Triglycerides 218 mg/dL (35-150)
[2022-05-13 16:21] LABS: Vitamin D 25 Hydroxy (D3) 55.4 ng/mL (30.0-100.0)
[2022-05-13 16:32] LABS: Thyroid Stimulating Hormone 1.55 uIU/mL (0.47-4.68)
[2022-05-13 16:57] LABS: Free T3, Triiodothyronine Free 2.67 pg/mL (2.77-5.27); Free T4, Direct Thyroxine 1.69 ng/dL (0.78-2.19)
== END ==
PROVIDERS: PCP Family Medicine; Referring Provider Family Medicine; Visit Provider Family Medicine
DX: E03.9 Hypothyroidism, unspecified (principal); E11.21 Type 2 diabetes mellitus with diabetic nephropathy; E78.5 Hyperlipidemia, unspecified; I10 Essential (primary) hypertension; Z79.4 Long term (current) use of insulin
CPT/HCPCS: 36415; 80053; 80061; 82306; 83036; 84439; 84443; 84481; 85025

== ENCOUNTER → 2022-08-12 10:08 | Outpatient (CLI) | payer BC, SELFPAY ==
[2021-02-01 22:13] VITALS: BMI 46.0
[2022-08-12 11:25] LABS: Add Manual Diff / Slide Review NO; Basophils Absolute Auto 0 /uL (0-100); Basophils Percent Auto 0.4 % (0-2); Eosinophils Absolute Auto 300 /uL (0-450); Eosinophils Percent Auto 3.3 % (2-4); Hematocrit 35.8 % (36-46); Hemoglobin 11.5 g/dL (12.0-16.0); Lymphocytes Absolute Auto 2000 /uL (1100-4500); Lymphocytes Percent Auto 22.2 % (25-40); Mean Corpuscular HGB Conc 32.2 % (30-36); Mean Corpuscular Hemoglobin 27.1 PG (26-34); Mean Corpuscular Volume 84.2 fL (80-100); Monocytes Absolute Auto 400 /uL (0-900); Monocytes Percent Auto 4.7 % (3-14); Neutrophils Absolute Auto 6200 /uL (1500-7000); Neutrophils Percent Auto 69.4 % (50-75); Platelet Count 333 X10^3/uL (150-400); Red Blood Cell Count 4.25 X10^6/uL (4.0-5.2)
[2022-08-12 12:11] LABS: Alanine Aminotransferase 25 IU/L (<35); Albumin 3.6 g/dL (3.5-5.0); Albumin Globulin Ratio 1.2 (1.0-2.8); Alkaline Phosphatase 85 U/L (38-126); Aspartate Aminotransferase 20 IU/L (14-36); BUN Creatinine Ratio 20.4 (6-22); Bilirubin Total 0.4 mg/dL (0.2-1.3); Blood Urea Nitrogen 22 mg/dL (7-17); Calcium 8.8 mg/dL (8.4-10.2); Carbon Dioxide 33 mmol/L (22-32); Chloride 98 mmol/L (98-107); Estimated Glomerular Filt Rate 58 mL/min (>60); Globulin 3.1 g/dL (1.7-4.1); Glucose 108 mg/dL (80-110); HEMOLYSIS < 15 (0-50); Potassium 3.9 mmol/L (3.4-5.1); Sodium 138 mmol/L (137-145); Total Protein 6.7 g/dL (6.3-8.2)
[2022-08-12 12:35] LABS: TSH w/ Reflex to FT4 1.19 uIU/mL (0.47-4.68)
[2022-08-12 14:27] LABS: Appearance Urine UA CLEAR; Bilirubin Urine UA NEGATIVE (NEGATIVE); Color Urine UA YELLOW; Glucose Urine UA NEGATIVE (Negative); Ketones Urine UA NEGATIVE (NEGATIVE); Leukocyte Esterase Urine UA NEGATIVE (NEGATIVE); Nitrite Urine UA NEGATIVE (Negative); Occult Blood Urine UA TRACE-INTACT (Negative); Protein Urine UA 2+ (Negative); Urobilinogen Urine UA 0.2 E.U./dL (0.2)
[2022-08-12 14:51] LABS: Bacteria Urine Few (2-10); Culture Indicated Urine Cult Not Indicated; RBC Urine None Seen (0-5/HPF); WBC Urine 1-5/HPF (0-5/HPF)
[2022-08-12 14:52] LABS: Squamous Epithelial Cell Urine 5-10 /HPF (0-5/HPF)
[2022-08-12 15:09] LABS: Creatinine Urine Random 56.7 mg/dL
[2022-08-12 16:39] LABS: Microalbumi Creatinin Ratio Ur 7407.4 ug/mg CR (<30)
[2022-08-13 09:18] LABS: x Labcorp Estim. Avg Glu (eAG) 192 mg/dL (.); x Labcorp Hemoglobin A1c 8.3 % (4.8-5.6)
== END ==
PROVIDERS: PCP Family Medicine; Referring Provider Family Medicine; Visit Provider Family Medicine
DX: E03.9 Hypothyroidism, unspecified (principal); E11.21 Type 2 diabetes mellitus with diabetic nephropathy; I10 Essential (primary) hypertension; Z79.4 Long term (current) use of insulin; R10.9 Unspecified abdominal pain
CPT/HCPCS: 36415; 80053; 81001; 82043; 82570; 83036; 84443; 85025

== ENCOUNTER 2022-09-17 22:07 | Emergency (ER) | payer BC, SELFPAY ==
[2021-02-01 22:13] VITALS: BMI 46.0
[2022-09-17 22:25] VITALS: BP 222/105; PULSE 83; RESP 18; TEMP 37; O2SAT 95; BMI 45.6
--- NOTE | 2022-09-17 22:57 | DI.CT.S_ITS ---
PROCEDURE: CT KIDNEY URETER BLADDER (KUB) INDICATIONS: severe flank pain, radiation to groin TECHNIQUE: Axial sections were acquired from the lung bases to the pubic symphysis. Coronal and sagittal reformats were performed. For radiation dose reduction, the following was used: automated exposure control, adjustment of mA and/or kV according to patient size. COMPARISON: CT, CT ABDOMEN PELVIS WO CON, 02/01/2021, 15:02. FINDINGS: Image quality: Excellent. Lung bases: Unremarkable. Heart: No significant findings. URINARY: Right Kidney: No stones or hydronephrosis. Renal atrophy. Right Ureter: No hydroureter. Left Kidney: No stones or hydronephrosis. Renal atrophy. Left Ureter: No hydroureter. Bladder: Normal wall thickness. No stones. ABDOMEN: Liver: Unremarkable. Gallbladder: Stones are present within the gallbladder lumen without wall thickening. Biliary ducts: Unremarkable. Pancreas: Unremarkable. Spleen: Unremarkable. Adrenal Glands: Unremarkable. Stomach and Bowel: Stomach, small bowel loops, and colon are unremarkable. Appendix is normal. Peritoneum: No abnormal intraperitoneal fluid. No free air. Ventral Wall: No hernia. Abdominal Nodes: No enlarged retroperitoneal or mesenteric lymph nodes. Vessels: Aorta and inferior vena cava are normal in size. PELVIS: Pelvic Organs: Unremarkable. Pelvic Nodes: Unremarkable. Miscellaneous: No inguinal hernias are seen. Bones: Unremarkable. IMPRESSION: No renal, ureteral or bladder calculi. Cholelithiasis without evidence of cholecystitis. Dictated by: Trixie Mccoy M.D. on 09/17/2022 at 23:39 Approved by: Trixie Mccoy M.D. on 09/17/2022 at 23:41
[2022-09-17] MEDS: ONDANSETRON 4 MG/2 ML INJ IV (23:17)
[2022-09-17] MEDS: KETOROLAC 30 MG/ML VIAL 15 MG IV (23:17)
[2022-09-17] MEDS: SODIUM CHLORIDE 0.9% 1,000 ML 1000 ML IV (23:19)
[2022-09-17 23:45] LABS: Lactate (Lactic Acid) 1.1 mmol/L (0.7-2.1)
[2022-09-17 23:46] LABS: Alanine Aminotransferase 20 IU/L (<35); Albumin 3.9 g/dL (3.5-5.0); Alkaline Phosphatase 104 U/L (38-126); Aspartate Aminotransferase 31 IU/L (14-36); BUN Creatinine Ratio 15.4 (6-22); Bilirubin Total 0.7 mg/dL (0.2-1.3); Blood Urea Nitrogen 19 mg/dL (7-17); Carbon Dioxide 34 mmol/L (22-32); Chloride 94 mmol/L (98-107); Estimated Glomerular Filt Rate 49 mL/min (>60); Glucose 231 mg/dL (80-110); HEMOLYSIS < 15 (0-50); Potassium 4.2 mmol/L (3.4-5.1); Sodium 134 mmol/L (137-145); Total Protein 7.9 g/dL (6.3-8.2)
[2022-09-17 23:56] LABS: Add Manual Diff / Slide Review NO; Basophils Absolute Auto 100 /uL (0-100); Basophils Percent Auto 0.3 % (0-2); Eosinophils Absolute Auto 400 /uL (0-450); Eosinophils Percent Auto 2.2 % (2-4); Hematocrit 39.4 % (36-46); Lymphocytes Absolute Auto 1300 /uL (1100-4500); Lymphocytes Percent Auto 7.9 % (25-40); Mean Corpuscular Hemoglobin 27.2 PG (26-34); Mean Corpuscular Volume 82.5 fL (80-100); Monocytes Absolute Auto 800 /uL (0-900); Monocytes Percent Auto 4.7 % (3-14); Neutrophils Absolute Auto 14200 /uL (1500-7000); Neutrophils Percent Auto 84.9 % (50-75); Platelet Count 384 X10^3/uL (150-400); Red Blood Cell Count 4.78 X10^6/uL (4.0-5.2); Red Cell Distribution Width 14.6 % (11.6-14.8); White Blood Cell Count 16.7 X10^3/uL (4.5-11.0)
--- NOTE | 2022-09-18 00:01 | ED_ITS ---
HPI - Female Genitourinary General Chief complaint: Urogenital-Female Stated complaint: abdominal and flank pain Time Seen by Provider: 09/17/22 22:13 Source: patient Mode of arrival: Ambulatory History of Present Illness HPI Narrative: 62-year-old female with history of hypertension, diabetes and hyperlipidemia presents with a chief complaint of left flank, abdomen and groin pain for the past day or 2. She states that she is had some urinary complaints including dysuria and possibly some blood in her urine. She denies any trauma or injury. She states that her pain seems to be worse when she moves and improves with rest. She denies any obvious increased pain without provocation. She denies runny nose, sore throat or cough. She has no diarrhea or constipation. Related Data Home Medications Medication Instructions Recorded Confirmed cholecalciferol (vitamin D3) 100 4,000 unit PO DAILY ##0 05/22/16 08/22/22 mcg (4,000 unit) capsule (Vitamin D3) fluticasone propionate 50 1 spray intranasal DAILY 11/03/18 08/22/22 mcg/actuation nasal spray,suspension Previous Rx's Medication Instructions Recorded benzonatate 100 mg capsule 100 mg PO BID PRN cough #60 caps 07/17/20 albuterol sulfate 90 mcg/actuation 2 puff inhalation Q4HP #8.5 04/18/21 aerosol inhaler (Ventolin HFA) grams atenolol 50 mg tablet See Rx Instructions .Route 07/31/21 .COMPLEX #90 tabs hydrochlorothiazide 25 mg tablet 25 mg PO DAILY #90 tabs 07/31/21 lisinopril 40 mg tablet 40 mg PO DAILY #90 tabs 07/31/21 insulin glargine 100 unit/mL 80 unit (0.8 mL) SUBCUT DAILY #10 09/11/21 subcutaneous solution (Lantus mL U-100 Insulin) levothyroxine 137 mcg tablet 137 mcg PO DAILY #90 tabs 10/15/21 atorvastatin 80 mg tablet 80 mg PO DAILY #90 tabs 04/27/22 hydrocodone 5 mg-acetaminophen 325 1 tab PO TID PRN pain #20 tabs 05/16/22 mg tablet amlodipine 5 mg tablet See Rx Instructions .Route 06/19/22 .COMPLEX #90 tabs amoxicillin 875 mg-potassium 1 tab PO BID #14 tabs 08/22/22 clavulanate 125 mg tablet dulaglutide 3 mg/0.5 mL 3 mg (0.5 mL) SUBCUT QWEEK #2 mL 08/25/22 subcutaneous pen injector (Trulicity) cefpodoxime 200 mg tablet 200 mg PO BID 10 days #20 tabs 09/18/22 ketorolac 10 mg tablet 10 mg PO Q6H PRN pain #14 tabs 09/18/22 ondansetron 4 mg disintegrating 4 mg PO TID-QID PRN nausea and 09/18/22 tablet vomiting #10 tabs Allergies Allergy/AdvReac Type Severity Reaction Status Date / Time shellfish derived Allergy Severe HIVES Verified 08/22/22 15:30 [SHELLFISH DERIVED] iodine [IODINE] Allergy Unknown Verified 08/22/22 15:30 Review of Systems Review of Systems Narrative: GENERAL: Denies chills, fatigue, malaise, fever, sweats. HEENT: Denies sinus pain, ear pain, sore throat, difficulty swallowing, dizziness. RESPIRATORY: Denies dyspnea, cough, wheezing, hemoptysis, sputum. CARDIOVASCULAR: Denies chest pain, palpitations, orthopnea, edema, GASTROINTESTINAL: See HPI : See HPI MUSCULOSKELETAL: denies weakness, joint pain, or bony pain SKIN: Denies rash, skin lesions, or other NEUROLOGIC: Denies weakness, headache, numbness, change in speech, confusion, seizures, incoordination. PSYCHIATRIC: No concerning psychosocial issues. 12 point review of systems is negative except for those stated above Patient History Medical History Acute kidney injury Allergy (Unknown) Alopecia (1986) Ankle pain (2014) Asthma (~07/2010) Cataracts, bilateral (2013) Cellulitis of great toe, left Chickenpox (~1960) Chronic back pain (1960) Chronic cough (2017) Chronic right-sided low back pain with right-sided sciatica Cough productive of yellow sputum Diabetes (2013) Diabetic nephropathy associated with type 2 diabetes mellitus Duodenal ulcer (1983) Eczema (1986) Fibromyalgia (2009) Flank pain Foot pain (Unknown) Generalized headaches (1971) Hemorrhoids (2013) History of febrile urinary tract infection History of recurrent ear infection (1971) History of tinnitus (1979) Hyperlipidemia (~07/2010) Hypertension (2006) Hypothyroidism (2010) Leukocytosis Macroalbuminuric diabetic nephropathy Migraines (1971) Nausea Oral pain of unknown etiology Ovarian cyst (2011) Recurrent sinusitis (1972) Seasonal depression (2015) Sinusitis, acute Thyroid nodule (2011) Urinary incontinence (2016) Urinary tract infection Vertigo (1979) Work-related stress Surgical History History of third molar tooth extraction Status post colonoscopy Family History Brother Age: 65 Diabetes mellitus Heart disease Hypertension High cholesterol Drug abuse Brother Age: 58 Diabetes mellitus Hypertension High cholesterol Stroke Father Diabetes mellitus Heart disease Hypertension High cholesterol Mother Diabetes mellitus Heart disease Hypertension High cholesterol Stroke Grandfather Diabetes mellitus Heart disease Hypertension High cholesterol Grandmother Diabetes mellitus Heart disease Hypertension High cholesterol Sister Age: 61 COPD (chronic obstructive pulmonary disease) Diabetes mellitus Heart disease Hypertension High cholesterol Sister Age: 59 Hypertension High cholesterol alcohol intake frequency: holidays/special occasions only Substance Use Type: does not use Exam Narrative Exam Narrative: GENERAL: [62] year old patient appears stated age. Well-developed patient, in mild distress. HEAD: Atraumatic. Normocephalic. EYES: Pupils equal round and reactive. Extraocular motions intact. No scleral icterus. No injection or drainage. ENT: Nose without bleeding, purulent drainage. Throat without erythema, tonsillar hypertrophy or exudate. Airway patent. NECK: Trachea midline. Non tender CARDIOVASCULAR: Regular rate and rhythm without murmurs, gallops, or rubs. RESPIRATORY: Clear to auscultation. Breath sounds equal bilaterally. No wheezes, rales, or rhonchi. GASTROINTESTINAL: Abdomen soft, non-tender, nondistended. EXTREMITIES: No edema or joint tenderness. BACK: Nontender without deformity or crepitance. No flank tenderness. NEURO: AOx3. SKIN: No rash or erythema of visible areas Initial Vital Signs Initial Vital Signs: Vital Signs Temperature 98.6 F 09/17/22 22:25 Pulse Rate 83 09/17/22 22:25 Respiratory Rate 18 09/17/22 22:25 Blood Pressure 222/105 H 09/17/22 22:25 Pulse Oximetry 95 09/17/22 22:25 Oxygen Delivery Method Room Air 09/17/22 22:25 Course Orders Ordered: ED Orders 09/17/22 22:45 Blood Culture Stat Complete Blood Count AUTO DIFF Stat Comprehensive Metabolic Panel Stat Lactate (Lactic Acid) Stat 09/17/22 22:57 CT kidney ureter bladder (KUB) Stat 09/17/22 23:16 Urine Culture Stat Urine Microscopic Stat Discontinued Medications Sodium Chloride (Normal Saline 0.9%) 1,000 mls @ 1,000 mls/hr IV BOLUS ONE Stop: 09/17/22 23:56 Last Infusion: 09/18/22 00:24 Dose: 0 mls/hr Documented By: Admin: 09/17/22 23:19 Dose: 1,000 mls/hr Documented By: DIANNA Ceftriaxone Sodium 1,000 mg/ (Sodium Chloride) 100 mls @ 200 mls/hr IV NOW ONE Stop: 09/18/22 00:05 Last Infusion: 09/18/22 00:35 Dose: 0 mls/hr Documented By: Admin: 09/18/22 00:12 Dose: 200 mls/hr Documented By: DIANNA Ketorolac Tromethamine (Ketorolac 30 Mg/Ml Vial) 15 mg IV NOW ONE Stop: 09/17/22 22:58 Last Admin: 09/17/22 23:17 Dose: 15 mg Documented By: DIANNA Ondansetron HCl (Ondansetron 4 Mg/2 Ml Inj) 4 mg IV NOW PRN PRN Reason: Nausea And Vomiting Last Admin: 09/17/22 23:17 Dose: 4 mg Documented By: DIANNA Vital Signs Vital signs: Vital Signs - 8 hr 09/17/22 22:25 09/18/22 00:14 Temperature 98.6 F Pulse Rate 83 79 Respiratory Rate 18 20 Blood Pressure 222/105 H 187/92 H Pulse Oximetry 95 91 Oxygen Delivery Method Room Air MDM - Female Genitourinary Lab Data 09/17/22 22:45 09/17/22 22:45 Labs: Lab Results 09/17/22 09/17/22 09/17/22 Range/Units 22:45 22:45 22:45 WBC 16.7 H (4.5-11.0) X10^3/uL RBC 4.78 (4.0-5.2) X10^6/uL Hgb 13.0 (12.0-16.0) g/dL Hct 39.4 (36-46) % MCV 82.5 (80-100) fL MCH 27.2 (26-34) PG MCHC 33.0 (30-36) % RDW 14.6 (11.6-14.8) % Plt Count 384 (150-400) X10^3/uL Neut % (Auto) 84.9 H (50-75) % Lymph % (Auto) 7.9 L (25-40) % Wilson % (Auto) 4.7 (3-14) % Eos % (Auto) 2.2 (2-4) % Baso % (Auto) 0.3 (0-2) % Neut # (Auto) 20336 H (8343-1609) /uL Lymph # (Auto) 1300 (7910-7626) /uL Wilson # (Auto) 800 (0-900) /uL Eos # (Auto) 400 (0-450) /uL Baso # (Auto) 100 (0-100) /uL Sodium 134 L (137-145) mmol/L Potassium 4.2 (3.4-5.1) mmol/L Chloride 94 L (98-107) mmol/L Carbon Dioxide 34 H (22-32) mmol/L BUN 19 H (7-17) mg/dL Creatinine 1.23 H (0.52-1.04) mg/dL Estimated GFR 49 L (>60) mL/min BUN/Creatinine Ratio 15.4 (6-22) Glucose 231 H (80-110) mg/dL Lactate 1.1 (0.7-2.1) mmol/L Calcium 9.0 (8.4-10.2) mg/dL Total Bilirubin 0.7 (0.2-1.3) mg/dL AST 31 (14-36) IU/L ALT 20 (<35) IU/L Alkaline Phosphatase 104 (38-126) U/L Total Protein 7.9 (6.3-8.2) g/dL Albumin 3.9 (3.5-5.0) g/dL Globulin 4.0 (1.7-4.1) g/dL Albumin/Globulin Ratio 1.0 (1.0-2.8) Urine RBC (0-5/HPF) Urine WBC (0-5/HPF) Ur Squamous Epith Cells (0-5/HPF) Urine Bacteria (None) Ur Culture Indicated? 09/17/22 Range/Units 23:16 WBC (4.5-11.0) X10^3/uL RBC (4.0-5.2) X10^6/uL Hgb (12.0-16.0) g/dL Hct (36-46) % MCV (80-100) fL MCH (26-34) PG MCHC (30-36) % RDW (11.6-14.8) % Plt Count (150-400) X10^3/uL Neut % (Auto) (50-75) % Lymph % (Auto) (25-40) % Wilson % (Auto) (3-14) % Eos % (Auto) (2-4) % Baso % (Auto) (0-2) % Neut # (Auto) (9080-1300) /uL Lymph # (Auto) (2609-5334) /uL Wilson # (Auto) (0-900) /uL Eos # (Auto) (0-450) /uL Baso # (Auto) (0-100) /uL Sodium (137-145) mmol/L Potassium (3.4-5.1) mmol/L Chloride (98-107) mmol/L Carbon Dioxide (22-32) mmol/L BUN (7-17) mg/dL Creatinine (0.52-1.04) mg/dL Estimated GFR (>60) mL/min BUN/Creatinine Ratio (6-22) Glucose (80-110) mg/dL Lactate (0.7-2.1) mmol/L Calcium (8.4-10.2) mg/dL Total Bilirubin (0.2-1.3) mg/dL AST (14-36) IU/L ALT (<35) IU/L Alkaline Phosphatase (38-126) U/L Total Protein (6.3-8.2) g/dL Albumin (3.5-5.0) g/dL Globulin (1.7-4.1) g/dL Albumin/Globulin Ratio (1.0-2.8) Urine RBC 5-10/hpf H (0-5/HPF) Urine WBC 30-100/hpf H (0-5/HPF) Ur Squamous Epith Cells None seen (0-5/HPF) Urine Bacteria Moderate (10-30) H (None) Ur Culture Indicated? Specimen cultured Urine Dip Bedside Urine Glucose Negative Bedside Urine Bilirubin - Negative Bedside Urine Ketone - Negative Urine Specific [place] 1.015 Bedside Urine Occult Blood ++ Bedside Urine pH 7 Bedside Urine Protein +++ 300 Bedside Urine Urobilinogen - Negative Bedside Urine Nitrite - Negative Bedside Urine Leukocytes +/- 15 Esterase MDM Narrative Medical decision making narrative: [62] year old patient presents with left flank pain Multiple etiologies for patient's symptoms considered including, but not limited to: [UTI versus pyelonephritis versus musculoskeletal versus kidney stone versus bowel versus other] Prior Charts reviewed in our EMR Primary Historian: patient Labs reviewed and interpreted by myself: Leukocytosis with relative left shift, no signs of anemia. No electrolyte abnormalities, slight increase in creatinine at 1.23 is slightly above her baseline Imaging reviewed: CT KUB without acute findings Treatments. No pain after toradol and fluids Patient's symptoms improved over duration of stay with above-stated therapies. History and physical exam are reassuring, patient is not septic, pain is well controlled, she is tolerating orals, no significant abnormal findings and labs or imagine. Only [place] noted in urine, given symptoms and elevated WBCs will treat for infectious process along with pain control. Findings and discharge diagnosis discussed with patient/family followed by verbalization of understanding Return precautions discussed with patient/family whom verbalize understanding of diagnosis and plan Discharge Plan Departure Patient Disposition: Home Clinical Impression: Acute flank pain Instructions: DI for Flank Pain Activity Restrictions/Additional Instructions: *You have been diagnosed with [ Flank Pain] *What to do: *Please continue to take your regular medications as directed. [ X] New medication prescriptions sent to your pharmacy: [ [facility]] [ ] New medication written as a paper prescription [ ] No new medications given *Please follow up with your primary care provider in 2-3 days, call for an appointment. Let them know you were seen in the Emergency Department and that we ask that you be seen in follow up. We will electronically transmit a record of today's note if your PCP is in our system *If you do not have a primary care provider please contact the [facility] Resource line at [phone]. They will ask some questions about your medical h istory and help get you set up with a doctor in the community. *Return to Emergency Department if you should have any new, worsening or concerning symptoms, such as [fever greater than 101 F, shaking chills, worsening pain, persistent vomiting or other bothersome symptoms] Prescriptions: New cefpodoxime 200 mg tablet 200 mg PO BID 10 Days Qty: 20 0RF Rx Instructions: must administer with a meal/food ketorolac 10 mg tablet 10 mg PO Q6H PRN (Reason: pain) Qty: 14 0RF ondansetron 4 mg tablet,disintegrating 4 mg PO TID-QID PRN (Reason: nausea and vomiting) Qty: 10 0RF No Action Vitamin D3 4,000 UNIT capsule 4,000 unit PO DAILY Qty: 0 atenolol 50 mg tablet See Rx Instructions .ROUTE .COMPLEX Qty: 90 3RF Dose Instruction: Take 1 tablet by mouth once daily Rx Instructions: Take 1 tablet by mouth once daily lisinopril 40 mg tablet 40 mg PO DAILY Qty: 90 3RF hydrochlorothiazide 25 mg tablet 25 mg PO DAILY Qty: 90 3RF Lantus U-100 Insulin 100 unit/mL solution 80 unit SUBCUT DAILY Qty: 10 12RF atorvastatin 80 mg tablet 80 mg PO DAILY Qty: 90 0RF hydrocodone-acetaminophen 5-325 mg tablet 1 tab PO TID PRN (Reason: pain) Qty: 20 0RF amlodipine 5 mg tablet See Rx Instructions .ROUTE .COMPLEX Qty: 90 2RF Dose Instruction: TAKE 1 TABLET BY MOUTH ONCE DAILY. FOLLOW-UP WITH PCP IN JULY FOR ROUTINE FOLLOW-UP BEFORE FUTURE FILLS Rx Instructions: TAKE 1 TABLET BY MOUTH ONCE DAILY. FOLLOW-UP WITH PCP IN JULY FOR ROUTINE FOLLOW-UP BEFORE FUTURE FILLS Trulicity 3 mg/0.5 mL pen injector 3 mg SUBCUT QWEEK Qty: 2 5RF benzonatate 100 mg capsule 100 mg PO BID PRN (Reason: cough) Qty: 60 3RF albuterol sulfate [Ventolin HFA] 90 mcg/actuation HFA aerosol inhaler 2 puff inhalation Q4HP Qty: 8.5 5RF levothyroxine 137 mcg tablet 137 mcg PO DAILY Qty: 90 3RF amoxicillin-pot clavulanate 875-125 mg tablet 1 tab PO BID Qty: 14 0RF fluticasone propionate 50 mcg/actuation spray,suspension 1 spray Intranasal DAILY Referrals: Johann Judge DO [Primary Care Provider] - Stand Alone Forms: Patient Portal/API
[2022-09-18] MEDS: cefTRIAXone 1,000 MG in SODIUM CHLORIDE 0.9% 100 ML 200 MG IV (00:12)
[2022-09-18 00:14] VITALS: BP 187/92; PULSE 79; RESP 20; O2SAT 91
[2022-09-18 00:41] LABS: Bacteria Urine Moderate (10-30); Culture Indicated Urine Specimen Cultured; RBC Urine 5-10/HPF (0-5/HPF); Squamous Epithelial Cell Urine None Seen (0-5/HPF); WBC Urine 30-100/HPF (0-5/HPF)
== END 2022-09-18 00:37 | disposition home or self-care (01) ==
PROVIDERS: Emergency Provider Emergency Medicine; PCP Family Medicine
DX: R10.9 Unspecified abdominal pain (principal)
CPT/HCPCS: 36415; 74176; 80053; 81003; 81015; 83605; 85025; 87040; 87077; 87086; 87186; 96365; 96375; 99284; J0696; J1885; J2405

== ENCOUNTER → 2023-02-25 10:58 | Outpatient (CLI) | payer BC, SELFPAY ==
[2021-02-01 22:13] VITALS: BMI 46.0
[2023-02-25 11:51] LABS: Alanine Aminotransferase 17 IU/L (<35); Albumin 3.6 g/dL (3.5-5.0); Albumin Globulin Ratio 1.1 (1.0-2.8); Alkaline Phosphatase 92 U/L (38-126); Aspartate Aminotransferase 16 IU/L (14-36); BUN Creatinine Ratio 16.7 (6-22); Bilirubin Total 0.7 mg/dL (0.2-1.3); Blood Urea Nitrogen 20 mg/dL (7-17); Calcium 9.2 mg/dL (8.4-10.2); Carbon Dioxide 31 mmol/L (22-32); Chloride 96 mmol/L (98-107); Estimated Glomerular Filt Rate 51 mL/min (>60); Globulin 3.3 g/dL (1.7-4.1); Glucose 218 mg/dL (80-110); HEMOLYSIS < 15 (0-50); Potassium 4.2 mmol/L (3.4-5.1); Sodium 134 mmol/L (137-145); Total Protein 6.9 g/dL (6.3-8.2)
[2023-02-25 11:55] LABS: Creatinine Urine Random 105.4 mg/dL
== END ==
PROVIDERS: PCP Family Medicine; Referring Provider Family Medicine; Visit Provider Family Medicine
DX: E11.21 Type 2 diabetes mellitus with diabetic nephropathy (principal); E11.9 Type 2 diabetes mellitus without complications; Z79.4 Long term (current) use of insulin
CPT/HCPCS: 36415; 80053; 82043; 82570; 83036

== ENCOUNTER → 2023-05-26 14:30 | Outpatient (CLI) | payer BC, SELFPAY ==
[2023-05-20 14:30] VITALS: BMI 46.0
== END ==
PROVIDERS: PCP Family Medicine; Visit Provider Physician Assistant Surgical
DX: R31.9 Hematuria, unspecified (principal)
CPT/HCPCS: 87086

== ENCOUNTER 2023-05-29 17:09 | Emergency (ER) | payer BC, SELFPAY ==
[2023-05-20 14:30] VITALS: BMI 46.0
[2023-05-29] VITALS (9 sets, daily range): BP systolic 156–179; BP diastolic 82–90; PULSE 54–62; RESP 17–24; TEMP 36.9; O2SAT 96–99; BMI 46.5
--- NOTE | 2023-05-29 17:29 | DI.MRI.S_ITS ---
PROCEDURE: MR HEAD/BRAIN WO CON INDICATIONS: tia TECHNIQUE: Non-contrast axial T1 spin echo, axial T2 fast spin echo, sagittal and axial FLAIR, coronal T2 fast spin echo, axial gradient echo, axial diffusion and ADC through the brain. COMPARISON: [facility], CT, CT ANGIO HEAD AND NECK, 05/29/2023, 17:44. [facility], CT, CT HEAD/BRAIN WO CON, 05/29/2023, 17:44. FINDINGS: Image quality: This examination is limited by involuntary motion artifact. CSF spaces: Ventricles appear symmetric in size and shape. Basal cisterns are patent. No extra-axial fluid collections. Brain: No intracranial bleeds or mass effects. There is cerebral volume loss for age. There are periventricular and deep white matter chronic small vessel ischemic changes. Brainstem appears normal. Diffusion-weighted images show no acute infarct. No chronic ischemic insults. Normal intravascular flow voids are present. Skull and face: Calvarial bone marrow is normal in signal. Orbits are normal. Note is made of bilateral lens replacements. Sinuses: Sinuses and mastoids are clear. IMPRESSION: No findings of acute or subacute infarction can be seen. Note is made of age-appropriate brain parenchymal volume loss and chronic small vessel ischemic changes. Dictated by: Simon Rodriguez M.D. on 05/29/2023 at 18:01 Approved by: Simon Rodriguez M.D. on 05/29/2023 at 18:02
--- NOTE | 2023-05-29 17:30 | DI.CT.S_ITS ---
PROCEDURE: CT ANGIO HEAD AND NECK INDICATIONS: tia TECHNIQUE: After the administration of intravenous contrast, 1 mm thick sections acquired from the aortic arch through the [place] of [place]. 3-dimensional zqnlrnb-gplprrrgr-edbrldcsyr (MIP) and/or volume rendering reformats were acquired of the central intracranial vasculature and neck separately. For radiation dose reduction, the following was used: automated exposure control, adjustment of mA and/or kV according to patient size. COMPARISON: [facility], CT, CT HEAD/BRAIN WO CON, 05/29/2023, 17:44. FINDINGS: Image quality: Limited by bolus timing, with venous contamination. BRAIN: CSF spaces: Ventricles are normal in size and shape. Basal cisterns are patent. No extra-axial fluid collections. Brain: No significant abnormality of the brain can be seen. Skull and face: Calvarium and facial bones appear intact, without suspicious lesions. Orbits appear normal. Sinuses: Sinuses and mastoids are clear. HEAD CT ANGIOGRAPHY: Anterior circulation: Intracranial internal carotid arteries are normal in size and flow. The flow within the paired anterior cerebral arteries is normal and symmetric. The flow within the middle cerebral arteries is normal and symmetric. The anterior communicating artery is seen. No aneurysms are seen. Posterior circulation: Note is made of bilateral type origins of the posterior cerebral arteries, with an associated diminutive basilar artery. The flow within the posterior cerebral arteries is normal and symmetric. The distal vertebral arteries are overall small in size, yet otherwise unremarkable. No aneurysms are seen. NECK CT ANGIOGRAPHY: Carotid system: [place] bovine The origins of the common carotid arteries appear patent. The common carotid arteries demonstrate normal caliber and courses. The bifurcation regions are both widely patent. The internal carotid arteries demonstrate normal calibers and courses. Posterior circulation: The origins of the vertebral arteries both appear widely patent. The more superior extracranial portions of both vertebral arteries also demonstrate normal courses and calibers. They join to form a normal appearing basilar artery. Soft tissues: Visualized neck soft tissues demonstrate no suspicious abnormalities. Bones: No suspicious bony lesions. Visualized cervical spine appears normally aligned. Moderate lower cervical spine degenerative changes are seen. IMPRESSION: No significant intracranial arterial abnormality is seen. No significant abnormality is seen within the arteries of the neck. Additional findings: [id number] developmental anomalies Moderate lower cervical spine degenerative change Bovine type aortic branching pattern Any quantitative measurements of stenosis were performed using NASCET criteria. Dictated by: Simon Rodriguez M.D. on 05/29/2023 at 17:13 Approved by: Simon Rodriguez M.D. on 05/29/2023 at 17:15
--- NOTE | 2023-05-29 17:30 | DI.CT.S_ITS ---
PROCEDURE: CT HEAD/BRAIN WO CON INDICATIONS: tia TECHNIQUE: Noncontrast 4.5 mm thick angled axial sections acquired from the foramen magnum to the vertex, with coronal and sagittal reformats. For radiation dose reduction, the following was used: automated exposure control, adjustment of mA and/or kV according to patient size. COMPARISON: [facility], CT, CT ANGIO HEAD AND NECK, 05/29/2023, 17:44. FINDINGS: Image quality: Diagnostic. CSF spaces: Basal cisterns are patent. No extra-axial fluid collections. The ventricles are symmetric in size and shape. Brain: No intracranial bleeds or masses. There is cerebral volume loss for age, with resultant ventricular and sulcal prominence. There are periventricular and deep white matter chronic small vessel ischemic changes. There is intracranial internal carotid artery atherosclerosis. Skull and face: Calvarium and visualized facial bones appear intact, without suspicious lesions. Sinuses: Visualized sinuses and mastoids are clear. IMPRESSION: No acute intracranial hemorrhage is seen. No acute intracranial pathology. Dictated by: Simon Rodriguez M.D. on 05/29/2023 at 17:12 Approved by: Simon Rodriguez M.D. on 05/29/2023 at 17:13
[2023-05-29 17:40] LABS: Add Manual Diff / Slide Review NO; Basophils Absolute Auto 0 /uL (0-100); Basophils Percent Auto 0.5 % (0-2); Eosinophils Absolute Auto 200 /uL (0-450); Eosinophils Percent Auto 1.7 % (2-4); Hematocrit 39.4 % (36-46); Hemoglobin 13.2 g/dL (12.0-16.0); Lymphocytes Absolute Auto 2100 /uL (1100-4500); Lymphocytes Percent Auto 22.1 % (25-40); Mean Corpuscular HGB Conc 33.5 % (30-36); Mean Corpuscular Hemoglobin 28.3 PG (26-34); Mean Corpuscular Volume 84.5 fL (80-100); Monocytes Absolute Auto 500 /uL (0-900); Monocytes Percent Auto 4.8 % (3-14); Neutrophils Absolute Auto 6900 /uL (1500-7000); Neutrophils Percent Auto 70.9 % (50-75); Platelet Count 400 X10^3/uL (150-400); Red Blood Cell Count 4.66 X10^6/uL (4.0-5.2); Red Cell Distribution Width 15.1 % (11.6-14.8); White Blood Cell Count 9.7 X10^3/uL (4.5-11.0)
[2023-05-29 17:47] LABS: Alanine Aminotransferase 19 IU/L (<35); Albumin 4.1 g/dL (3.5-5.0); Alkaline Phosphatase 91 U/L (38-126); Aspartate Aminotransferase 22 IU/L (14-36); BUN Creatinine Ratio 17.2 (6-22); Bilirubin Total 0.6 mg/dL (0.2-1.3); Blood Urea Nitrogen 28 mg/dL (7-17); Carbon Dioxide 29 mmol/L (22-32); Chloride 104 mmol/L (98-107); Estimated Glomerular Filt Rate 35 mL/min (>60); Globulin 4.1 g/dL (1.7-4.1); Glucose 145 mg/dL (80-110); HEMOLYSIS < 15 (0-50); Potassium 3.7 mmol/L (3.4-5.1); Sodium 139 mmol/L (137-145); Total Protein 8.2 g/dL (6.3-8.2)
--- NOTE | 2023-05-29 17:48 | PC.NURSE ---
1730 At this time when I assessed patient to place IV, patient reports sudden onset Dizziness with fractured vision in Right Eye. Code stroke activated, Dr. Duran aware. Immediately after IV placement patient reports sudden return to normal, no dizziness or vision problems. Dr. Duran made aware of all of this, patient taken directly to [place] at [address] head noncontract and CT angio head and neck. Patient will also have MR of head between [id number]. patient requests anxiety meds. Dr. Duran aware and verbal order given for 0.5mg Ativan.
[2023-05-29 18:06] LABS: Creatine Kinase 45 U/L (30-135)
[2023-05-29] MEDS: LORazepam 2 MG/ML INJ 0.5 MG IV (18:06)
[2023-05-29 18:19] LABS: Troponin I < 0.012 ng/mL (0.01-0.034)
--- NOTE | 2023-05-29 19:08 | PC.NURSE ---
Pt resting in bed. Pt stated MRI went well. No current complaints
--- NOTE | 2023-05-29 19:14 | PC.NURSE ---
Pt states symptoms resolve. Upon arrival to ED pt was urgently sent to CT. MRI complete at this time.
--- NOTE | 2023-05-29 19:20 | PC.NURSE ---
Pt c/o swelling/redness to neck. no swelling to oral mucosa/no airway compromise/no stridor or wheezing noted. Pt states she has taken multiple meds recently that she is worried is contributing to the swelling
--- NOTE | 2023-05-29 20:07 | ED.NEUROSD ---
HPI - Neuro Symptoms/Deficit General Chief Complaint: Neuro Symptoms/Deficit Stated Complaint: vertigo but worse/N/vision impairment Time Seen by Provider: 05/29/23 17:29 Source: patient Mode of arrival: Wheelchair History of Present Illness HPI Narrative: 63-year-old female with history of vertigo, chronic kidney disease, diabetes presents by private vehicle from home for severe vertigo. Patient states that she was sitting down when all of a sudden she felt a werner come over her body with severe vertigo with vomiting. Patient has had intermittent vertigo in the past, but this was way worse than her usual. Symptoms are bad enough that she asked family to bring her in for evaluation. Vertigo improved by time of arrival to the emergency department. Triage orders placed by daytime ED doctor. On Anticoagulants: No Related Data Home Medications Medication Instructions Recorded Confirmed cholecalciferol (vitamin D3) 100 4,000 unit PO DAILY ##0 05/22/16 05/27/23 mcg (4,000 unit) capsule (Vitamin D3) fluticasone propionate 50 1 spray intranasal DAILY 11/03/18 05/27/23 mcg/actuation nasal spray,suspension insulin glargine 100 unit/mL 50 unit SUBCUT DAILY 05/20/23 05/27/23 subcutaneous solution (Lantus U-100 Insulin) Previous Rx's Medication Instructions Recorded albuterol sulfate 90 mcg/actuation 2 puff inhalation Q4HP #8.5 04/18/21 aerosol inhaler (Ventolin HFA) grams amlodipine 5 mg tablet See Rx Instructions .Route 06/19/22 .COMPLEX #90 tabs atenolol 50 mg tablet See Rx Instructions .Route 09/23/22 .COMPLEX #90 tabs hydrochlorothiazide 25 mg tablet 25 mg PO DAILY #90 tabs 09/23/22 lisinopril 40 mg tablet 40 mg PO DAILY #90 tabs 09/23/22 atorvastatin 80 mg tablet 80 mg PO DAILY #90 tabs 01/19/23 levothyroxine 137 mcg tablet 137 mcg PO DAILY #90 tabs 04/03/23 bupropion HCl 300 mg 24 hr tablet, 300 mg PO QAM #90 tabs 05/20/23 extended release dapagliflozin propanediol 10 mg 10 mg PO QAM #30 tabs 05/20/23 tablet (Farxiga) dulaglutide 4.5 mg/0.5 mL 4.5 mg (0.5 mL) SUBCUT QWEEK #2 mL 05/20/23 subcutaneous pen injector (Trulicity) nitrofurantoin 100 mg PO Q12H 7 days #14 caps 05/26/23 monohydrate/macrocrystals 100 mg capsule (Macrobid) meclizine 25 mg tablet 25 mg PO TID PRN dizziness #30 tabs 05/29/23 Allergies Allergy/AdvReac Type Severity Reaction Status Date / Time shellfish derived Allergy Severe HIVES Verified 05/27/23 14:27 [SHELLFISH DERIVED] iodine [IODINE] Allergy Unknown Verified 05/27/23 14:27 Review of Systems Review of Systems Narrative: Negative except as noted Hematologic/Lymphatic On Anticoagulants: No Patient History Medical History (Updated 05/29/23 @ 20:31 by Darlin Mayfield MD) Infective urethritis Bronchitis Macroalbuminuric diabetic nephropathy Sinusitis, acute Flank pain Chronic right-sided low back pain with right-sided sciatica History of febrile urinary tract infection Nausea Diabetic nephropathy associated with type 2 diabetes mellitus Work-related stress Leukocytosis Urinary tract infection Acute kidney injury Oral pain of unknown etiology Cellulitis of great toe, left Asthma (~07/2010) Hyperlipidemia (~07/2010) Eczema (1986) Alopecia (1986) Chronic cough (2016) Allergy (Unknown) Seasonal depression (2014) Migraines (1971) Generalized headaches (1971) Foot pain (Unknown) Fibromyalgia (2010) Chronic back pain (1959) Ankle pain (2014) Chickenpox (~1959) Vertigo (1979) History of tinnitus (1979) Recurrent sinusitis (1971) History of recurrent ear infection (1971) Cataracts, bilateral (2013) Ovarian cyst (2010) Urinary incontinence (2016) Duodenal ulcer (1983) Hemorrhoids (2013) Thyroid nodule (2010) Hypothyroidism (2010) Diabetes (2013) Hypertension (2007) Surgical History Status post colonoscopy History of third molar tooth extraction Family History Brother Age: 66 Diabetes mellitus Heart disease Hypertension High cholesterol Drug abuse Brother Age: 59 Diabetes mellitus Hypertension High cholesterol Stroke Father Diabetes mellitus Heart disease Hypertension High cholesterol Mother Diabetes mellitus Heart disease Hypertension High cholesterol Stroke Grandfather Diabetes mellitus Heart disease Hypertension High cholesterol Grandmother Diabetes mellitus Heart disease Hypertension High cholesterol Sister Age: 62 COPD (chronic obstructive pulmonary disease) Diabetes mellitus Heart disease Hypertension High cholesterol Sister Age: 60 Hypertension High cholesterol Social History household members: family Smoking Status: Never smoker alcohol intake: current Smoking Status: Never smoker alcohol intake frequency: holidays/special occasions only Substance Use Type: does not use Exam Initial Vital Signs Initial Vital Signs: Vital Signs Temperature 98.4 F 05/29/23 17:14 Pulse Rate 62 05/29/23 17:14 Respiratory Rate 20 05/29/23 17:14 Blood Pressure 176/90 H 05/29/23 17:14 Pulse Oximetry 97 05/29/23 17:14 Oxygen Delivery Method Room Air 05/29/23 17:14 Const: Awake, alert, no acute distress, nontoxic appearing Cardiac: regular rate, regular rhythm RESP: unlabored, clear bilaterally, no wheezing GI: Atraumatic, soft, nontender, nondistended, no rebound, no guarding MSK: Atraumatic, full range of motion, pulses equal Skin: Warm, Dry, intact, no rashes Neuro: AO x3, CN II-XII grossly intact, moves all extremities, no ataxia Course Orders Ordered: Discontinued Medications Lorazepam (Lorazepam 2 Mg/Ml Inj) 0.5 mg IV NOW ONE Stop: 05/29/23 17:48 Last Admin: 05/29/23 18:06 Dose: 0.5 mg Documented By: ANAIS Vital Signs Vital signs: Vital Signs - 8 hr 05/29/23 17:14 05/29/23 17:46 05/29/23 17:47 Temperature 98.4 F Pulse Rate 62 60 Respiratory Rate 20 Blood Pressure 176/90 H 178/86 H Pulse Oximetry 97 99 Oxygen Delivery Method Room Air 05/29/23 17:47 05/29/23 18:00 05/29/23 18:00 Temperature Pulse Rate 59 L 58 L Respiratory Rate 17 Blood Pressure 179/86 H Pulse Oximetry 97 98 Oxygen Delivery Method 05/29/23 18:05 05/29/23 18:05 05/29/23 18:44 Temperature Pulse Rate 54 L 56 L Respiratory Rate Blood Pressure 169/82 H Pulse Oximetry 97 98 Oxygen Delivery Method 05/29/23 18:47 05/29/23 18:47 05/29/23 19:00 Temperature Pulse Rate 54 L 58 L Respiratory Rate 21 23 Blood Pressure 156/89 H Pulse Oximetry 98 98 Oxygen Delivery Method 05/29/23 19:30 Temperature Pulse Rate 59 L Respiratory Rate 24 Blood Pressure Pulse Oximetry 96 Oxygen Delivery Method Room Air MDM - Neuro Symptoms/Deficit Lab Data 05/29/23 17:23 05/29/23 17:23 Labs: Lab Results 05/29/23 Range/Units 17:23 WBC 9.7 (4.5-11.0) X10^3/uL RBC 4.66 (4.0-5.2) X10^6/uL Hgb 13.2 (12.0-16.0) g/dL Hct 39.4 (36-46) % MCV 84.5 (80-100) fL MCH 28.3 (26-34) PG MCHC 33.5 (30-36) % RDW 15.1 H (11.6-14.8) % Plt Count 400 (150-400) X10^3/uL Neut % (Auto) 70.9 (50-75) % Lymph % (Auto) 22.1 L (25-40) % Bledsoe % (Auto) 4.8 (3-14) % Eos % (Auto) 1.7 L (2-4) % Baso % (Auto) 0.5 (0-2) % Neut # (Auto) 6900 (6421-4230) /uL Lymph # (Auto) 2100 (1907-0001) /uL Bledsoe # (Auto) 500 (0-900) /uL Eos # (Auto) 200 (0-450) /uL Baso # (Auto) 0 (0-100) /uL Sodium 139 (137-145) mmol/L Potassium 3.7 (3.4-5.1) mmol/L Chloride 104 (98-107) mmol/L Carbon Dioxide 29 (22-32) mmol/L BUN 28 H (7-17) mg/dL Creatinine 1.63 H (0.52-1.04) mg/dL Estimated GFR 35 L (>60) mL/min BUN/Creatinine Ratio 17.2 (6-22) Glucose 145 H (80-110) mg/dL Calcium 9.0 (8.4-10.2) mg/dL Total Bilirubin 0.6 (0.2-1.3) mg/dL AST 22 (14-36) IU/L ALT 19 (<35) IU/L Alkaline Phosphatase 91 (38-126) U/L Total Creatine Kinase 45 (30-135) U/L Troponin I < 0.012 (0.01-0.034) ng/mL Total Protein 8.2 (6.3-8.2) g/dL Albumin 4.1 (3.5-5.0) g/dL Globulin 4.1 (1.7-4.1) g/dL Albumin/Globulin Ratio 1.0 (1.0-2.8) Imaging Data CT scan - head: Radiologist's Impression: PROCEDURE: CT HEAD/BRAIN WO CON INDICATIONS: tia TECHNIQUE: Noncontrast 4.5 mm thick angled axial sections acquired from the foramen magnum to the vertex, with coronal and sagittal reformats. For radiation dose reduction, the following was used: automated exposure control, adjustment of mA and/or kV according to patient size. COMPARISON: [facility], CT, CT ANGIO HEAD AND NECK, 05/29/2023, 17:44. FINDINGS: Image quality: Diagnostic. CSF spaces: Basal cisterns are patent. No extra-axial fluid collections. The ventricles are symmetric in size and shape. Brain: No intracranial bleeds or masses. There is cerebral volume loss for age, with resultant ventricular and sulcal prominence. There are periventricular and deep white matter chronic small vessel ischemic changes. There is intracranial internal carotid artery atherosclerosis. Skull and face: Calvarium and visualized facial bones appear intact, without suspicious lesions. Sinuses: Visualized sinuses and mastoids are clear. IMPRESSION: No acute intracranial hemorrhage is seen. No acute intracranial pathology. Dictated by: Simon Rodriguez M.D. on 05/29/2023 at 17:12 Approved by: Simon Rodriguez M.D. on 05/29/2023 at 17:13 CTA - brain/neck: Radiologist's Impression: PROCEDURE: CT ANGIO HEAD AND NECK INDICATIONS: tia TECHNIQUE: After the administration of intravenous contrast, 1 mm thick sections acquired from the aortic arch through the [place] of [place]. 3-dimensional jrydudv-wgtxymvgh-irofaqyywb (MIP) and/or volume rendering reformats were acquired of the central intracranial vasculature and neck separately. For radiation dose reduction, the following was used: automated exposure control, adjustment of mA and/or kV according to patient size. COMPARISON: [facility], CT, CT HEAD/BRAIN WO CON, 05/29/2023, 17:44. FINDINGS: Image quality: Limited by bolus timing, with venous contamination. BRAIN: CSF spaces: Ventricles are normal in size and shape. Basal cisterns are patent. No extra-axial fluid collections. Brain: No significant abnormality of the brain can be seen. Skull and face: Calvarium and facial bones appear intact, without suspicious lesions. Orbits appear normal. Sinuses: Sinuses and mastoids are clear. HEAD CT ANGIOGRAPHY: Anterior circulation: Intracranial internal carotid arteries are normal in size and flow. The flow within the paired anterior cerebral arteries is normal and symmetric. The flow within the middle cerebral arteries is normal and symmetric. The anterior communicating artery is seen. No aneurysms are seen. Posterior circulation: Note is made of bilateral type origins of the posterior cerebral arteries, with an associated diminutive basilar artery. The flow within the posterior cerebral arteries is normal and symmetric. The distal vertebral arteries are overall small in size, yet otherwise unremarkable. No aneurysms are seen. NECK CT ANGIOGRAPHY: Carotid system: Cable bovine The origins of the common carotid arteries appear patent. The common carotid arteries demonstrate normal caliber and courses. The bifurcation regions are both widely patent. The internal carotid arteries demonstrate normal calibers and courses. Posterior circulation: The origins of the vertebral arteries both appear widely patent. The more superior extracranial portions of both vertebral arteries also demonstrate normal courses and calibers. They join to form a normal appearing basilar artery. Soft tissues: Visualized neck soft tissues demonstrate no suspicious abnormalities. Bones: No suspicious bony lesions. Visualized cervical spine appears normally aligned. Moderate lower cervical spine degenerative changes are seen. IMPRESSION: No significant intracranial arterial abnormality is seen. No significant abnormality is seen within the arteries of the neck. Additional findings: Luvcgu-xw-Tgnlno developmental anomalies Moderate lower cervical spine degenerative change Bovine type aortic branching pattern Any quantitative measurements of stenosis were performed using NASCET criteria. Dictated by: Simon Rodriguez M.D. on 05/29/2023 at 17:13 Approved by: Simon Rodriguez M.D. on 05/29/2023 at 17:15 PROCEDURE: MR HEAD/BRAIN WO CON INDICATIONS: tia TECHNIQUE: Non-contrast axial T1 spin echo, axial T2 fast spin echo, sagittal and axial FLAIR, coronal T2 fast spin echo, axial gradient echo, axial diffusion and ADC through the brain. COMPARISON: [facility], CT, CT ANGIO HEAD AND NECK, 05/29/2023, 17:44. [facility], CT, CT HEAD/BRAIN WO CON, 05/29/2023, 17:44. FINDINGS: Image quality: This examination is limited by involuntary motion artifact. CSF spaces: Ventricles appear symmetric in size and shape. Basal cisterns are patent. No extra-axial fluid collections. Brain: No intracranial bleeds or mass effects. There is cerebral volume loss for age. There are periventricular and deep white matter chronic small vessel ischemic changes. Brainstem appears normal. Diffusion-weighted images show no acute infarct. No chronic ischemic insults. Normal intravascular flow voids are present. Skull and face: Calvarial bone marrow is normal in signal. Orbits are normal. Note is made of bilateral lens replacements. Sinuses: Sinuses and mastoids are clear. IMPRESSION: No findings of acute or subacute infarction can be seen. Note is made of age-appropriate brain parenchymal volume loss and chronic small vessel ischemic changes. Dictated by: Simon Rodriguez M.D. on 05/29/2023 at 18:01 Approved by: Simon Rodriguez M.D. on 05/29/2023 at 18:02 ECG Data Interpretation: Sinus bradycardia at 54 beats per minute. Prolonged VT interval. Normal axis. No STEMI MDM Narrative Medical decision making narrative: Presented to triage with severe vertigo that had since resolved. CT brain, CT angio, brain MRI orders placed by daytime doctor. On my evaluation patient is in no distress, she states her vertigo has already resolved, currently feels back to her baseline. Laboratory work reviewed, patient has mild increase in creatinine to 1.63 from 1.2 and GFR is 35 down from 51 in February of [address]23. CT, CT angio, brain MRI are negative for acute findings, no evidence of acute stroke. Patient relieved to know that her imaging is normal. She was informed of her worsening kidney function and she states that she was being followed by her primary care physician for this and we will mentioned it to him at her follow up appointment. Although patient is no longer experiencing vertigo a prescription for meclizine was sent to patient's pharmacy of choice. ED return precautions discussed at bedside. Patient expressed understanding of the plan and is in agreement at this time. All questions answered at the time of discharge. Discharge Plan Departure Patient Disposition: Home Clinical Impression: Vertigo Instructions: DI for Vertigo Activity Restrictions/Additional Instructions: The CT scans and MRI of your brain today were normal. Your GFR today was actually 35 and not 25 like I originally told you. It is still less than your lab results in February, so follow up with your primary care doctor about your kidney function. A vertigo medication was sent to your pharmacy that you may take if you feel dizzy in the future. Prescriptions: New meclizine 25 mg tablet 25 mg PO TID PRN (Reason: dizziness) Qty: 30 0RF No Action nitrofurantoin monohyd/m-cryst [Macrobid] 100 mg capsule 100 mg PO Q12H 7 Days Qty: 14 0RF Rx Instructions: must administer with a meal/food Vitamin D3 4,000 UNIT capsule 4,000 unit PO DAILY Qty: 0 amlodipine 5 mg tablet See Rx Instructions .ROUTE .COMPLEX Qty: 90 2RF Dose Instruction: TAKE 1 TABLET BY MOUTH ONCE DAILY. FOLLOW-UP WITH PCP IN JULY FOR ROUTINE FOLLOW-UP BEFORE FUTURE FILLS Rx Instructions: TAKE 1 TABLET BY MOUTH ONCE DAILY. FOLLOW-UP WITH PCP IN JULY FOR ROUTINE FOLLOW-UP BEFORE FUTURE FILLS hydrochlorothiazide 25 mg tablet 25 mg PO DAILY Qty: 90 3RF lisinopril 40 mg tablet 40 mg PO DAILY Qty: 90 3RF atenolol 50 mg tablet See Rx Instructions .ROUTE .COMPLEX Qty: 90 3RF Dose Instruction: Take 1 tablet by mouth once daily Rx Instructions: Take 1 tablet by mouth once daily atorvastatin 80 mg tablet 80 mg PO DAILY Qty: 90 0RF levothyroxine 137 mcg tablet 137 mcg PO DAILY Qty: 90 0RF albuterol sulfate [Ventolin HFA] 90 mcg/actuation HFA aerosol inhaler 2 puff inhalation Q4HP Qty: 8.5 5RF Trulicity 4.5 mg/0.5 mL pen injector 4.5 mg SUBCUT QWEEK Qty: 2 5RF Farxiga 10 mg tablet 10 mg PO QAM Qty: 30 2RF bupropion HCl 300 mg tablet extended release 24 hr 300 mg PO QAM Qty: 90 1RF Lantus U-100 Insulin 100 unit/mL solution 50 unit SUBCUT DAILY fluticasone propionate 50 mcg/actuation spray,suspension 1 spray Intranasal DAILY Referrals: Johann Judge DO [Primary Care Provider] - Stand Alone Forms: Patient Portal/API
== END 2023-05-29 20:43 | disposition home or self-care (01) ==
PROVIDERS: Emergency Medicine; Emergency Provider Emergency Medicine; PCP Family Medicine
DX: R42 Dizziness and giddiness (principal); R11.10 Vomiting, unspecified; R07.9 Chest pain, unspecified
CPT/HCPCS: 36415; 70450; 70496; 70498; 70551; 80053; 82550; 84484; 85025; 93005; 93010; 96374; 99284; J2060; Q9967

== ENCOUNTER → 2023-06-23 13:40 | Outpatient (CLI) | payer BC, SELFPAY ==
[2023-05-20 14:30] VITALS: BMI 46.0
[2023-06-23 14:51] LABS: Alanine Aminotransferase 56 IU/L (<35); Albumin Globulin Ratio 1.1 (1.0-2.8); Alkaline Phosphatase 86 U/L (38-126); Aspartate Aminotransferase 35 IU/L (14-36); BUN Creatinine Ratio 12.2 (6-22); Bilirubin Total 0.7 mg/dL (0.2-1.3); Blood Urea Nitrogen 23 mg/dL (7-17); Calcium 9.2 mg/dL (8.4-10.2); Carbon Dioxide 31 mmol/L (22-32); Chloride 106 mmol/L (98-107); Cholesterol 112 mg/dL (140-199); Estimated Glomerular Filt Rate 29 mL/min (>60); Globulin 3.8 g/dL (1.7-4.1); Glucose 92 mg/dL (80-110); HDL Cholesterol 34 mg/dL (40-60); HEMOLYSIS < 15 (0-50); LDL Cholesterol Calculated 63 mg/dL (<100); Potassium 3.9 mmol/L (3.4-5.1); Sodium 142 mmol/L (137-145); Total Protein 7.8 g/dL (6.3-8.2); Triglycerides 74 mg/dL (35-150)
[2023-06-23 14:52] LABS: Hemoglobin A1C% w Est Avg Glu 8.1 % (4.0-6.0)
[2023-06-23 15:04] LABS: Free T4, Direct Thyroxine 1.73 ng/dL (0.78-2.19)
[2023-06-23 15:18] LABS: TSH w/ Reflex to FT4 0.05 uIU/mL (0.47-4.68)
[2023-06-23 15:42] LABS: Creatinine Urine Random 89.9 mg/dL
[2023-06-23 16:09] LABS: Microalbumin Urine Random > 114.0 mg/dL (0-1.6)
== END ==
PROVIDERS: PCP Family Medicine; Referring Provider Physician Assistant; Visit Provider Physician Assistant
DX: E03.9 Hypothyroidism, unspecified (principal); E11.9 Type 2 diabetes mellitus without complications; Z79.4 Long term (current) use of insulin; I10 Essential (primary) hypertension; E78.5 Hyperlipidemia, unspecified; E11.21 Type 2 diabetes mellitus with diabetic nephropathy; E66.01 Morbid (severe) obesity due to excess calories
CPT/HCPCS: 36415; 80053; 80061; 82043; 82570; 83036; 84439; 84443

== ENCOUNTER → 2023-06-30 13:03 | Outpatient (CLI) | payer BC, SELFPAY ==
[2023-05-20 14:30] VITALS: BMI 46.0
[2023-06-30 15:32] LABS: Alanine Aminotransferase 26 IU/L (<35); Albumin 3.9 g/dL (3.5-5.0); Albumin Globulin Ratio 1.1 (1.0-2.8); Alkaline Phosphatase 79 U/L (38-126); Aspartate Aminotransferase 25 IU/L (14-36); BUN Creatinine Ratio 16.3 (6-22); Bilirubin Total 0.5 mg/dL (0.2-1.3); Blood Urea Nitrogen 34 mg/dL (7-17); Calcium 8.9 mg/dL (8.4-10.2); Carbon Dioxide 29 mmol/L (22-32); Chloride 105 mmol/L (98-107); Estimated Glomerular Filt Rate 26 mL/min (>60); Globulin 3.6 g/dL (1.7-4.1); Glucose 143 mg/dL (80-110); HEMOLYSIS < 15 (0-50); Potassium 3.7 mmol/L (3.4-5.1); Sodium 141 mmol/L (137-145); Total Protein 7.5 g/dL (6.3-8.2)
== END ==
PROVIDERS: PCP Family Medicine; Referring Provider Physician Assistant; Visit Provider Physician Assistant
DX: N18.9 Chronic kidney disease, unspecified (principal)
CPT/HCPCS: 36415; 80053

== ENCOUNTER 2023-08-20 11:25 | Emergency (ER) | payer BC, SELFPAY ==
[2023-07-01 11:33] VITALS: BMI 46.0
[2023-08-20] VITALS (15 sets, daily range): BP systolic 144–184; BP diastolic 73–141; PULSE 61–75; RESP 13–30; TEMP 36.4; O2SAT 94–98; BMI 45.1
--- NOTE | 2023-08-20 11:35 | DI.RAD.S_ITS ---
PROCEDURE: XR CHEST 1V INDICATIONS: chest pain TECHNIQUE: One view of the chest was acquired. COMPARISON: [facility], CR, XR CHEST 1V, 02/01/2021, 20:22. FINDINGS: Surgical changes and devices: None. Lungs and pleura: Lungs are clear. No pleural effusions or pneumothorax. Mediastinum: Mediastinal contours appear normal. Heart size is normal. Bones and chest wall: No suspicious bony lesions. Overlying soft tissues appear unremarkable. IMPRESSION: No acute cardiopulmonary abnormality is seen. Dictated by: Sarah Mcclelland MD, PhD on 08/20/2023 at 12:05 Approved by: Sarah Mcclelland MD, PhD on 08/20/2023 at 12:06
[2023-08-20 11:55] LABS: Prothrombin Time 11.1 SECONDS (9.4-12.5)
[2023-08-20 11:57] LABS: PTT Partial Thromboplastin Tim 42 SECONDS (25.1-36.5)
[2023-08-20 12:01] LABS: Alanine Aminotransferase 25 IU/L (<35); Albumin 4.3 g/dL (3.5-5.0); Albumin Globulin Ratio 1.3 (1.0-2.8); Alkaline Phosphatase 70 U/L (38-126); Aspartate Aminotransferase 23 IU/L (14-36); BUN Creatinine Ratio 15.6 (6-22); Bilirubin Total 0.7 mg/dL (0.2-1.3); Blood Urea Nitrogen 30 mg/dL (7-17); Calcium 9.1 mg/dL (8.4-10.2); Carbon Dioxide 30 mmol/L (22-32); Chloride 105 mmol/L (98-107); Creatine Kinase 44 U/L (30-135); Estimated Glomerular Filt Rate 29 mL/min (>60); Globulin 3.4 g/dL (1.7-4.1); Glucose 108 mg/dL (80-110); HEMOLYSIS < 15 (0-50); Lipase 215 U/L (23-300); Magnesium 2.5 mg/dL (1.6-2.3); Potassium 3.9 mmol/L (3.4-5.1); Sodium 140 mmol/L (137-145); Total Protein 7.7 g/dL (6.3-8.2)
[2023-08-20 12:04] LABS: Add Manual Diff / Slide Review NO; Basophils Absolute Auto 100 /uL (0-100); Basophils Percent Auto 0.9 % (0-2); Eosinophils Absolute Auto 100 /uL (0-450); Eosinophils Percent Auto 1.4 % (2-4); Hematocrit 43.6 % (36-46); Hemoglobin 14.5 g/dL (12.0-16.0); Lymphocytes Absolute Auto 1800 /uL (1100-4500); Lymphocytes Percent Auto 18.5 % (25-40); Mean Corpuscular HGB Conc 33.1 % (30-36); Mean Corpuscular Hemoglobin 28.8 PG (26-34); Mean Corpuscular Volume 86.9 fL (80-100); Monocytes Absolute Auto 500 /uL (0-900); Monocytes Percent Auto 5.1 % (3-14); Neutrophils Absolute Auto 7100 /uL (1500-7000); Neutrophils Percent Auto 74.1 % (50-75); Platelet Count 436 X10^3/uL (150-400); Red Blood Cell Count 5.02 X10^6/uL (4.0-5.2); Red Cell Distribution Width 14.6 % (11.6-14.8); White Blood Cell Count 9.6 X10^3/uL (4.5-11.0)
[2023-08-20 12:12] LABS: Troponin I < 0.012 ng/mL (0.01-0.034)
--- NOTE | 2023-08-20 13:50 | ED.CHESTPAIN ---
HPI - Chest Pain General Chief Complaint: Chest Pain Stated Complaint: kidney issues, L neck pain, chest pain Time Seen by Provider: 08/20/23 13:50 Source: patient Mode of arrival: Ambulatory Limitations: no limitations Limitations: no limitations History of Present Illness HPI narrative: 63-year-old female history of hypertension insulin-dependent diabetes on insulin, Farxiga, Trulicity, dyslipidemia, hypothyroidism after having radiated her thyroid presents with complaint of 3 weeks of right neck pain, 3 days of left hip pain and today some left chest pain. Patient states neck pain on the right and present for 3 weeks in the hip pain which has been in the left which has been present for 3 days both feet seemed to be very much movement and positional. Today she developed some left chest discomfort she states that does not radiate to her neck arm back or belly. She states no shortness of breath no diaphoresis no fevers or chills no cold cough congestion. She occasionally has nausea but has had vertigo since age 19 and associate that with her vertigo episodes. Patient's denies any issues with bowel movements or urination. No syncope. No increased swelling of her extremities. She is on 4 medications for hypertension, insulin, Farxiga, Trulicity, medication for cholesterol, Wellbutrin and levothyroxine. She denies any prior surgeries. She notes she had her thyroid radiated when she was younger, no prior cardiac interventions no stents or ablations. She has had stress test in the past but it has been 5 years or more. No tobacco, alcohol or recreational drugs. Her primary care is Dr. Judge. She presents today because she states the pain in her has been neck was not as concerning but when she developed chest pain she thought she should be evaluated. Related Data Home Medications Medication Instructions Recorded Confirmed cholecalciferol (vitamin D3) 100 4,000 unit PO DAILY ##0 05/22/16 06/30/23 mcg (4,000 unit) capsule (Vitamin D3) fluticasone propionate 50 1 spray intranasal DAILY 11/03/18 06/30/23 mcg/actuation nasal spray,suspension insulin glargine 100 unit/mL 50 unit SUBCUT DAILY 05/20/23 06/30/23 subcutaneous solution (Lantus U-100 Insulin) Previous Rx's Medication Instructions Recorded albuterol sulfate 90 mcg/actuation 2 puff inhalation Q4HP #8.5 04/18/21 aerosol inhaler (Ventolin HFA) grams atenolol 50 mg tablet See Rx Instructions .Route 09/23/22 .COMPLEX #90 tabs hydrochlorothiazide 25 mg tablet 25 mg PO DAILY #90 tabs 09/23/22 lisinopril 40 mg tablet 40 mg PO DAILY #90 tabs 09/23/22 atorvastatin 80 mg tablet 80 mg PO DAILY #90 tabs 01/19/23 bupropion HCl 300 mg 24 hr tablet, 300 mg PO QAM #90 tabs 05/20/23 extended release dapagliflozin propanediol 10 mg 10 mg PO QAM #30 tabs 05/20/23 tablet (Farxiga) dulaglutide 4.5 mg/0.5 mL 4.5 mg (0.5 mL) SUBCUT QWEEK #2 mL 05/20/23 subcutaneous pen injector (Trulicity) meclizine 25 mg tablet 25 mg PO TID PRN dizziness #30 tabs 05/29/23 levothyroxine 137 mcg tablet 137 mcg PO DAILY #90 tabs 07/03/23 amlodipine 5 mg tablet 5 mg PO DAILY #90 tabs 07/20/23 Allergies Allergy/AdvReac Type Severity Reaction Status Date / Time shellfish derived Allergy Severe HIVES Verified 06/30/23 12:54 [SHELLFISH DERIVED] iodine [IODINE] Allergy Unknown Verified 06/30/23 12:54 Review of Systems Review of Systems ROS Unobtainable: All systems reviewed & are unremarkable except as noted in HPI and below Patient History Medical History Infective urethritis Bronchitis Macroalbuminuric diabetic nephropathy Sinusitis, acute Flank pain Chronic right-sided low back pain with right-sided sciatica History of febrile urinary tract infection Nausea Diabetic nephropathy associated with type 2 diabetes mellitus Work-related stress Leukocytosis Urinary tract infection Acute kidney injury Oral pain of unknown etiology Cellulitis of great toe, left Asthma (~07/2010) Hyperlipidemia (~07/2010) Eczema (1986) Alopecia (1986) Chronic cough (2016) Allergy (Unknown) Seasonal depression (2014) Migraines (1971) Generalized headaches (1971) Foot pain (Unknown) Fibromyalgia (2010) Chronic back pain (1959) Ankle pain (2014) Chickenpox (~1959) Vertigo (1979) History of tinnitus (1979) Recurrent sinusitis (1971) History of recurrent ear infection (1971) Cataracts, bilateral (2013) Ovarian cyst (2010) Urinary incontinence (2016) Duodenal ulcer (1983) Hemorrhoids (2013) Thyroid nodule (2010) Hypothyroidism (2010) Diabetes (2013) Hypertension (2006) Surgical History Status post colonoscopy History of third molar tooth extraction Family History Brother Age: 66 Diabetes mellitus Heart disease Hypertension High cholesterol Drug abuse Brother Age: 59 Diabetes mellitus Hypertension High cholesterol Stroke Father Diabetes mellitus Heart disease Hypertension High cholesterol Mother Diabetes mellitus Heart disease Hypertension High cholesterol Stroke Grandfather Diabetes mellitus Heart disease Hypertension High cholesterol Grandmother Diabetes mellitus Heart disease Hypertension High cholesterol Sister Age: 62 COPD (chronic obstructive pulmonary disease) Diabetes mellitus Heart disease Hypertension High cholesterol Sister Age: 60 Hypertension High cholesterol Social History household members: family Smoking Status: Never smoker alcohol intake: current Smoking Status: Never smoker alcohol intake frequency: holidays/special occasions only Substance Use Type: does not use Exam Narrative Exam Narrative: GEN: Obese female, alert and oriented x 3, patient appears to be in mild distress. HEENT: Atraumatic, pupils are equal round reactive to light, extraocular movements are intact, nares are clear, TMs are clear with no fluid, there is no conjunctival pallor. Throat is clear without any exudates, erythema, tonsillar enlargement or uvular deviation HEART: Regular rate and rhythm without murmur, clicks, rubs. No carotid bruits, pulses are equal in upper and lower extremities LUNGS:Lungs clear to auscultation, no wheezes, rales, crackles, chest moves symmetrically, no tachypnea or accessory muscle use ABD:bowel sounds normal, soft, non-tender, no guarding, rebound, rigidity, no masses noted, no hepatosplenomegaly :No CVA tenderness MSCL: Non-tender, no muscle atrophy, muscles strength 5/5 upper and lower extremities, full range of motion. NEURO:CN 2-12 intact, sensation normal. SKIN: No rash, erythema or other skin changes Initial Vital Signs Initial Vital Signs: Vital Signs Temperature 97.5 F L 05/30/24 11:28 Pulse Rate 75 08/20/23 11:28 Respiratory Rate 18 08/20/23 11:28 Blood Pressure 184/82 H 08/20/23 11:28 Pulse Oximetry 98 08/20/23 11:28 Oxygen Delivery Method Room Air 08/20/23 11:28 Course Orders Ordered: ED Orders 08/20/23 11:35 XR chest 1V Stat Complete Blood Count AUTO DIFF Stat Comprehensive Metabolic Panel Stat Lipase Stat Magnesium Stat PTT Partial Thromboplastin Zak Stat Prothrombin Time INR Stat Troponin & CK Cardiac Panel Stat EKG-12 Lead Stat 08/20/23 13:59 Trop I [Troponin I] Stat 08/20/23 14:31 EKG-12 Lead Stat Discontinued Medications Aspirin (Aspirin 81 Mg Chew Tab) 324 mg PO NOW ONE Stop: 08/20/23 11:36 Last Admin: 08/20/23 12:32 Dose: Not Given Documented By: OTONIEL Morphine Sulfate (Morphine 2 Mg/Ml Inj) 2 mg IV NOW ONE Stop: 08/20/23 14:24 Last Admin: 08/20/23 14:42 Dose: 2 mg Documented By: OTONIEL Ondansetron HCl (Ondansetron 4 Mg/2 Ml Inj) 4 mg IV NOW ONE Stop: 08/20/23 15:03 Last Admin: 08/20/23 15:09 Dose: 4 mg Documented By: OTONIEL Vital Signs Vital signs: Vital Signs - 8 hr 08/20/23 11:28 08/20/23 11:49 08/20/23 12:00 Temperature 97.5 F L Pulse Rate 75 66 64 Respiratory Rate 18 22 Blood Pressure 184/82 H Pulse Oximetry 98 95 Oxygen Delivery Method Room Air 08/20/23 12:30 08/20/23 13:00 08/20/23 13:30 Temperature Pulse Rate 65 64 70 Respiratory Rate 22 20 Blood Pressure Pulse Oximetry 94 95 96 Oxygen Delivery Method 08/20/23 13:47 08/20/23 13:47 08/20/23 14:00 Temperature Pulse Rate 64 65 Respiratory Rate 30 H Blood Pressure 144/78 H Pulse Oximetry 95 95 Oxygen Delivery Method 08/20/23 14:01 08/20/23 14:01 08/20/23 14:30 Temperature Pulse Rate 63 62 Respiratory Rate 25 H Blood Pressure 168/86 H Pulse Oximetry 95 Oxygen Delivery Method 08/20/23 14:31 08/20/23 14:31 08/20/23 14:40 Temperature Pulse Rate 61 62 Respiratory Rate 13 Blood Pressure 169/141 H Pulse Oximetry 94 94 Oxygen Delivery Method 08/20/23 14:40 08/20/23 15:00 08/20/23 15:01 Temperature Pulse Rate 62 62 Respiratory Rate 21 Blood Pressure 163/73 H Pulse Oximetry Oxygen Delivery Method 08/20/23 15:01 08/20/23 15:19 08/20/23 15:19 Temperature Pulse Rate 61 Respiratory Rate Blood Pressure 184/86 H 167/92 H Pulse Oximetry Oxygen Delivery Method MDM - Chest Pain Lab Data 08/20/23 11:35 08/20/23 11:35 Labs: Lab Results 08/20/23 08/20/23 Range/Units 11:35 13:59 WBC 9.6 (4.5-11.0) X10^3/uL RBC 5.02 (4.0-5.2) X10^6/uL Hgb 14.5 (12.0-16.0) g/dL Hct 43.6 (36-46) % MCV 86.9 (80-100) fL MCH 28.8 (26-34) PG MCHC 33.1 (30-36) % RDW 14.6 (11.6-14.8) % Plt Count 436 H (150-400) X10^3/uL Neut % (Auto) 74.1 (50-75) % Lymph % (Auto) 18.5 L (25-40) % [place] % (Auto) 5.1 (3-14) % Eos % (Auto) 1.4 L (2-4) % Baso % (Auto) 0.9 (0-2) % Neut # (Auto) 7100 H (3752-5676) /uL Lymph # (Auto) 1800 (0001-9077) /uL [place] # (Auto) 500 (0-900) /uL Eos # (Auto) 100 (0-450) /uL Baso # (Auto) 100 (0-100) /uL PT 11.1 (9.4-12.5) SECONDS INR 1.0 (0.9-1.3) APTT 42 H (25.1-36.5) SECONDS Sodium 140 (137-145) mmol/L Potassium 3.9 (3.4-5.1) mmol/L Chloride 105 (98-107) mmol/L Carbon Dioxide 30 (22-32) mmol/L BUN 30 H (7-17) mg/dL Creatinine 1.92 H (0.52-1.04) mg/dL Estimated GFR 29 L (>60) mL/min BUN/Creatinine Ratio 15.6 (6-22) Glucose 108 (80-110) mg/dL Calcium 9.1 (8.4-10.2) mg/dL Magnesium 2.5 H (1.6-2.3) mg/dL Total Bilirubin 0.7 (0.2-1.3) mg/dL AST 23 (14-36) IU/L ALT 25 (<35) IU/L Alkaline Phosphatase 70 (38-126) U/L Total Creatine Kinase 44 (30-135) U/L Troponin I < 0.012 < 0.012 (0.01-0.034) ng/mL Total Protein 7.7 (6.3-8.2) g/dL Albumin 4.3 (3.5-5.0) g/dL Globulin 3.4 (1.7-4.1) g/dL Albumin/Globulin Ratio 1.3 (1.0-2.8) Lipase 215 (23-300) U/L Imaging Data Chest x-ray: Radiologist's Impression: [address] [id number] XRay Report? Signed Patient: Shawnee Castellano MR#: [id number] : 1960 Acct:[id number] Age/Sex: 63 / F Date of Service: 08/20/23 Loc: ED Accession Number: [id number]? ? Procedure: XR chest 1V Ordering Provider: Darlin Andino D.O. PROCEDURE:? XR CHEST 1V ? INDICATIONS:? chest pain ? TECHNIQUE:? One view of the chest was acquired.?? ? COMPARISON:? [facility], [facility], XR CHEST 1V, 02/01/2021, 20:22. ? FINDINGS:?? ? Surgical changes and devices:? None.?? ? Lungs and pleura:? Lungs are clear.? No pleural effusions or pneumothorax.?? ? Mediastinum:? Mediastinal contours appear normal.? Heart size is normal.?? ? Bones and chest wall:? No suspicious bony lesions.? Overlying soft tissues appear? unremarkable.? IMPRESSION:?? ? No acute cardiopulmonary abnormality is seen.? Dictated by: Sarah Mcclelland MD, PhD on 08/20/2023 at 12:05? ? ? Approved by: Sarah Mcclelland MD, PhD on 08/20/2023 at 12:06? ? ECG Data Attestation: I personally reviewed and interpreted this ECG as follows: Prior ECG tracings: available for review Interpretation: Sinus rhythm rate of 64 [place] 226, QRS of 92 QTC of 429, no acute ST elevation depression noted. Patient has prior from 05/29/2023 which appears similar to today's. EKG 2. Shows sinus rhythm first-degree AV block rate of 60 P are 242 QRS of 92 QTC of 426. No acute ST changes. MDM Narrative Medical decision making narrative: 63-year-old female with history of hypertension diabetes dyslipidemia presents with complaint of 3 weeks of neck pain, hip pain on the opposite side for 3 days and then developed left-sided chest pain today. Patient describes her neck and hip pain is positional and worsened with movement. Chest pain little bit so she states it feels better at this time it does not radiate no shortness of breath no diaphoresis she occasionally gets some nausea but she has vertigo when she lays nausea to her vertigo episodes which she has had since age 19. Patient does have risk factors with a hypertension diabetic history she has had prior stress test but never had any other cardiac workup. Patient's labs show white count of 9.6 hemoglobin of 14 platelets of 436 INR 1, creatinine is elevated 1.92 appears fairly consistent with past was 2.08 trended up slightly over the last few months but is lower today. Glucose is 108 BUN 30, sodium is 140, potassium 3.9 with a chloride of 105 and a CO2 of 30, Mag is 2.5 LFTs are negative initial troponin is less than 0.012 with a negative lipase. Chest x-ray shows no acute change. EKG appears similar to 05/29/[address] elevation or depression today. Repeat EKG appears similar with no dynamic changes. Troponin was repeated and is negative at 0.012. Discussed with patient observation versus discharge home. She elects for discharge home discussed she does have risk factors for cardiac source but no active IN today is appreciated. Discussed that she should follow up with primary care this week or this upcoming week for follow-up. Patient expresses understanding discussed return precautions. Discharge Plan Departure Patient Disposition: Home Clinical Impression: Left-sided chest pain Activity Restrictions/Additional Instructions: Please follow-up with your primary care physician for recheck, call to set up an appointment in the next week. Continue your home medications as prescribed. If you are having any worsening symptoms, increasing chest pain, shortness of breath, lightheadedness or passing out, persistent nausea or vomiting, new numbness tingling or weakness or other new or concerning changes please return for re-evaluation. Prescriptions: No Action Vitamin D3 4,000 UNIT capsule 4,000 unit PO DAILY Qty: 0 hydrochlorothiazide 25 mg tablet 25 mg PO DAILY Qty: 90 3RF lisinopril 40 mg tablet 40 mg PO DAILY Qty: 90 3RF atenolol 50 mg tablet See Rx Instructions .ROUTE .COMPLEX Qty: 90 3RF Dose Instruction: Take 1 tablet by mouth once daily Rx Instructions: Take 1 tablet by mouth once daily atorvastatin 80 mg tablet 80 mg PO DAILY Qty: 90 0RF levothyroxine 137 mcg tablet 137 mcg PO DAILY Qty: 90 0RF amlodipine 5 mg tablet 5 mg PO DAILY Qty: 90 0RF albuterol sulfate [Ventolin HFA] 90 mcg/actuation HFA aerosol inhaler 2 puff inhalation Q4HP Qty: 8.5 5RF Trulicity 4.5 mg/0.5 mL pen injector 4.5 mg SUBCUT QWEEK Qty: 2 5RF Farxiga 10 mg tablet 10 mg PO QAM Qty: 30 2RF bupropion HCl 300 mg tablet extended release 24 hr 300 mg PO QAM Qty: 90 1RF Lantus U-100 Insulin 100 unit/mL solution 50 unit SUBCUT DAILY fluticasone propionate 50 mcg/actuation spray,suspension 1 spray Intranasal DAILY meclizine 25 mg tablet 25 mg PO TID PRN (Reason: dizziness) Qty: 30 0RF Referrals: Johann Judge DO [Primary Care Provider] - Stand Alone Forms: Patient Portal/API
[2023-08-20 14:35] LABS: Troponin I < 0.012 ng/mL (0.01-0.034)
[2023-08-20] MEDS: MORPHINE 2 MG/ML INJ IV (14:42)
[2023-08-20] MEDS: ONDANSETRON 4 MG/2 ML INJ IV (15:09)
== END 2023-08-20 15:20 | disposition home or self-care (01) ==
PROVIDERS: Emergency Provider Emergency Medicine; PCP Family Medicine
DX: R07.9 Chest pain, unspecified (principal); M25.552 Pain in left hip; M54.2 Cervicalgia; Z79.899 Other long term (current) drug therapy
CPT/HCPCS: 36415; 71045; 80053; 82550; 83690; 83735; 84484; 85025; 85610; 85730; 93005; 96374; 96375; 99284; J2270; J2405

== ENCOUNTER → 2023-08-27 16:26 | Outpatient (CLI) | payer BC, SELFPAY ==
[2023-08-20 15:53] VITALS: BMI 46.0
[2023-08-27 18:41] LABS: Creatinine Urine Random 178.82 mg/dL
[2023-08-27 19:19] LABS: Microalbumin Urine Random > 57.0 mg/dL (0-1.6)
== END ==
LOC: LAB 16:26
PROVIDERS: PCP Family Medicine; Referring Provider Family Medicine; Visit Provider Family Medicine
DX: E11.21 Type 2 diabetes mellitus with diabetic nephropathy (principal)
CPT/HCPCS: 82043; 82570

== ENCOUNTER → 2024-01-26 09:18 | Outpatient (CLI) | payer BC, SELFPAY ==
[2023-08-20 15:53] VITALS: BMI 46.0
[2024-01-26 10:14] LABS: Add Manual Diff / Slide Review NO; Basophils Absolute Auto 0 /uL (0-100); Basophils Percent Auto 0.4 % (0-2); Eosinophils Absolute Auto 300 /uL (0-450); Hematocrit 39.4 % (36-46); Hemoglobin 12.9 g/dL (12.0-16.0); Lymphocytes Absolute Auto 1700 /uL (1100-4500); Lymphocytes Percent Auto 20.3 % (25-40); Mean Corpuscular HGB Conc 32.7 % (30-36); Mean Corpuscular Volume 88.5 fL (80-100); Monocytes Absolute Auto 400 /uL (0-900); Monocytes Percent Auto 4.1 % (3-14); Neutrophils Absolute Auto 6200 /uL (1500-7000); Neutrophils Percent Auto 72.2 % (50-75); Platelet Count 360 X10^3/uL (150-400); Red Blood Cell Count 4.45 X10^6/uL (4.0-5.2); Red Cell Distribution Width 14.3 % (11.6-14.8); White Blood Cell Count 8.6 X10^3/uL (4.5-11.0)
[2024-01-26 10:34] LABS: Hemoglobin A1C% w Est Avg Glu 7.2 % (4.0-6.0)
[2024-01-26 10:39] LABS: Alanine Aminotransferase 17 IU/L (<35); Albumin 3.9 g/dL (3.5-5.0); Albumin Globulin Ratio 1.1 (1.0-2.8); Alkaline Phosphatase 83 U/L (38-126); Aspartate Aminotransferase 17 IU/L (14-36); BUN Creatinine Ratio 13.3 (6-22); Bilirubin Total 0.6 mg/dL (0.2-1.3); Blood Urea Nitrogen 22 mg/dL (7-17); Calcium 9.6 mg/dL (8.4-10.2); Carbon Dioxide 30 mmol/L (22-32); Chloride 99 mmol/L (98-107); Cholesterol 168 mg/dL (140-199); Estimated Glomerular Filt Rate 34 mL/min (>60); Globulin 3.4 g/dL (1.7-4.1); Glucose 115 mg/dL (80-110); HDL Cholesterol 42 mg/dL (40-60); HEMOLYSIS < 15 (0-50); LDL Cholesterol Calculated 103 mg/dL (<100); Potassium 4.3 mmol/L (3.4-5.1); Sodium 137 mmol/L (137-145); Total Protein 7.3 g/dL (6.3-8.2); Triglycerides 115 mg/dL (35-150)
[2024-01-26 11:08] LABS: TSH w/ Reflex to FT4 1.45 uIU/mL (0.47-4.68)
[2024-01-26 20:00] LABS: Microalbumin Urine Random 73.1 mg/dL (0-1.6)
== END ==
PROVIDERS: PCP Family Medicine; Referring Provider Family Medicine; Visit Provider Family Medicine
DX: E11.21 Type 2 diabetes mellitus with diabetic nephropathy (principal); E66.01 Morbid (severe) obesity due to excess calories; E78.5 Hyperlipidemia, unspecified; E03.9 Hypothyroidism, unspecified; E11.22 Type 2 diabetes mellitus with diabetic chronic kidney disease; N18.32 Chronic kidney disease, stage 3b; I12.9 Hypertensive chronic kidney disease with stage 1 through stage 4 chronic kidney disease, or unspecified chronic kidney disease
CPT/HCPCS: 36415; 80053; 80061; 82043; 82570; 83036; 84443; 85025

== ENCOUNTER 2024-03-07 11:47 | Emergency (ER) | payer BC, SELFPAY ==
[2023-08-20 15:53] VITALS: BMI 46.0
[2024-03-07 12:13] VITALS: BP 178/77; PULSE 64; RESP 18; TEMP 36.3; O2SAT 99; BMI 46.5
--- NOTE | 2024-03-07 14:14 | ED_ITS ---
HPI - Back Pain/Injury <Chelsey Romero PA-C - Last Filed: 03/07/24 15:49> General Chief Complaint: Back Pain/Injury Stated Complaint: Sciatica pain Time Seen by Provider: 03/07/24 14:06 Source: patient History of Present Illness HPI Narrative: Ms. Castellano is a pleasant 63-year-old female with a past medical history of sciatica, hypertension, insulin-dependent type 2 diabetes, hyperlipidemia, hypothyroidism, chronic kidney disease who presents to the emergency department for right-sided low back pain times 2-3 days. Patient reports since December she has had occasional right-sided low back pain and sciatica. States that the pain was much worse on Thursday and has since improved because she has been walking last. Denies any trauma or inciting injury. Reports pain in her right low back that occasionally radiates into the right hip and into the right knee. Reports she has been taking Tylenol however the pain has not resolved. She denies fevers, chills, chest pain, shortness of breath, abdominal pain, nausea, vomiting, bladder incontinence, bowel incontinence, saddle anesthesia. Reports she had 1 leftover Vicodin at home from a prior surgery 3 years ago she took a did help with the pain. Denies IV drug use. Related Data Home Medications Medication Instructions Recorded Confirmed cholecalciferol (vitamin D3) 100 4,000 unit PO DAILY ##0 05/22/16 01/07/24 mcg (4,000 unit) capsule (Vitamin D3) fluticasone propionate 50 1 spray intranasal DAILY 11/03/18 01/07/24 mcg/actuation nasal spray,suspension cetirizine 10 mg tablet (Zyrtec) 10 mg PO DAILY PRN 01/26/24 01/26/24 Previous Rx's Medication Instructions Recorded levothyroxine 137 mcg tablet 137 mcg PO DAILY #90 tabs 09/29/23 bupropion HCl 300 mg 24 hr tablet, 300 mg PO QAM #90 tabs 11/17/23 extended release atenolol 50 mg tablet See Rx Instructions .Route 11/27/23 .COMPLEX #90 tabs hydrochlorothiazide 25 mg tablet 25 mg PO DAILY #90 tabs 11/27/23 lisinopril 40 mg tablet 40 mg PO DAILY #90 tabs 11/27/23 insulin glargine 100 unit/mL 50 unit (0.5 mL) SUBCUT DAILY #10 12/28/23 subcutaneous solution (Lantus mL U-100 Insulin) albuterol sulfate 90 mcg/actuation 2 puff inhalation Q4HP #8.5 01/11/24 aerosol inhaler (Ventolin HFA) grams amlodipine 5 mg tablet 5 mg PO DAILY #90 tabs 01/26/24 atorvastatin 80 mg tablet 80 mg PO DAILY #90 tabs 01/26/24 dapagliflozin propanediol 10 mg 10 mg PO QAM #90 tabs 01/26/24 tablet (Farxiga) dulaglutide 4.5 mg/0.5 mL 4.5 mg (0.5 mL) SUBCUT QWEEK #2 mL 01/26/24 subcutaneous pen injector (Trulicity) meclizine 25 mg tablet 25 mg PO TID PRN dizziness #30 tabs 01/26/24 benzonatate 100 mg capsule 100 mg PO TID PRN cough #60 caps 02/23/24 lidocaine 5 % topical patch 1 patch topical DAILY #15 ea 03/07/24 (Lidoderm) methocarbamol 500 mg tablet 500 mg PO TID PRN muscle spasm #15 03/07/24 tabs Allergies Allergy/AdvReac Type Severity Reaction Status Date / Time shellfish derived AdvReac Severe HIVES Verified 03/07/24 12:13 [SHELLFISH DERIVED] iodine [IODINE] AdvReac Unknown Hives Verified 03/07/24 12:13 Review of Systems <Chelsey Romero PA-C - Last Filed: 03/07/24 15:49> Review of Systems ROS Unobtainable: All systems reviewed & are unremarkable except as noted in HPI and below Patient History <Chelsey Romero PA-C - Last Filed: 03/07/24 15:49> Medical History Diabetic neuropathy Cervical somatic dysfunction Acute pain of left hip Acute neck pain Infective urethritis Bronchitis Macroalbuminuric diabetic nephropathy Sinusitis, acute Flank pain Chronic right-sided low back pain with right-sided sciatica History of febrile urinary tract infection Nausea Diabetic nephropathy associated with type 2 diabetes mellitus Work-related stress Leukocytosis Urinary tract infection Acute kidney injury Oral pain of unknown etiology Cellulitis of great toe, left Asthma (~07/2010) Hyperlipidemia (~07/2010) Eczema (1986) Alopecia (1986) Chronic cough (2017) Allergy (Unknown) Seasonal depression (2015) Migraines (1971) Generalized headaches (1971) Foot pain (Unknown) Fibromyalgia (2010) Chronic back pain (1959) Ankle pain (2014) Chickenpox (~1959) Vertigo (1979) History of tinnitus (1979) Recurrent sinusitis (1971) History of recurrent ear infection (1971) Cataracts, bilateral (2013) Ovarian cyst (2010) Urinary incontinence (2016) Duodenal ulcer (1983) Hemorrhoids (2013) Thyroid nodule (2010) Hypothyroidism (2010) Diabetes (2013) Hypertension (2006) Surgical History Status post colonoscopy History of third molar tooth extraction Family History Brother Age: 66 Diabetes mellitus Heart disease Hypertension High cholesterol Drug abuse Brother Age: 59 Diabetes mellitus Hypertension High cholesterol Stroke Father Diabetes mellitus Heart disease Hypertension High cholesterol Mother Diabetes mellitus Heart disease Hypertension High cholesterol Stroke Grandfather Diabetes mellitus Heart disease Hypertension High cholesterol Grandmother Diabetes mellitus Heart disease Hypertension High cholesterol Sister Age: 62 COPD (chronic obstructive pulmonary disease) Diabetes mellitus Heart disease Hypertension High cholesterol Sister Age: 60 Hypertension High cholesterol Social History household members: family Smoking Status: Never smoker alcohol intake: current Smoking Status: Never smoker alcohol intake frequency: holidays/special occasions only Exam <Chelsey Romero PA-C - Last Filed: 03/07/24 15:49> Narrative Exam Narrative: GENERAL: 63 year old patient appears stated age. Obese patient, in no acute distress. HEAD: Atraumatic. Normocephalic. EYES: Extraocular motions intact. No scleral icterus. No injection or drainage. ENT: Nose without bleeding, purulent drainage. Throat without erythema, tonsillar hypertrophy or exudate. Airway patent. NECK: Trachea midline. Cervical ROM intact. CARDIOVASCULAR: Regular rate and rhythm. RESPIRATORY: ?Nonlabored respirations. ?Speaking in clear, full sentences. ?Clear to auscultation. Breath sounds equal bilaterally. No wheezes, rales, or rhonchi. ? GASTROINTESTINAL: Abdomen soft, non-tender, nondistended. EXTREMITIES: No edema or joint tenderness. BACK: No midline bony tenderness. Tenderness to palpation of Right lumbosacral region/SI joint. Subjective + Right SLR. 5/5 bilateral knee flexion extension strength. Sensation intact to light touch throughout the lower extremities. NEURO: AOx3. ?Clear speech. ?Moves all 4 extremities appropriately. SKIN: No rash or erythema of visible areas Initial Vital Signs Initial Vital Signs: Vital Signs Temperature 97.3 F L 03/07/24 12:13 Pulse Rate 64 03/07/24 12:13 Respiratory Rate 18 03/07/24 12:13 Blood Pressure 178/77 H 03/07/24 12:13 Pulse Oximetry 99 03/07/24 12:13 Oxygen Delivery Method Room Air 03/07/24 12:13 <Gabby Escamilla DO - Last Filed: 03/07/24 19:33> Initial Vital Signs Initial Vital Signs: Vital Signs Temperature 97.3 F L 03/07/24 12:13 Pulse Rate 64 03/07/24 12:13 Respiratory Rate 18 03/07/24 12:13 Blood Pressure 178/77 H 03/07/24 12:13 Pulse Oximetry 99 03/07/24 12:13 Oxygen Delivery Method Room Air 03/07/24 12:13 Course <Chelsey Romero PA-C - Last Filed: 03/07/24 15:49> Orders Ordered: ED Orders 03/07/24 15:00 Urine Culture Stat Urine Microscopic Stat Discontinued Medications Hydrocodone Bitart/Acetaminophen (Hydrocodone/Acet 5/325 Tablet) 1 tab PO NOW ONE Stop: 03/07/24 14:32 Last Admin: 03/07/24 14:58 Dose: 1 tab Documented By: ALIX Lidocaine (Lidocaine 5% Patch) 1 each TOP NOW ONE Stop: 03/07/24 14:32 Last Admin: 03/07/24 14:59 Dose: 1 each Documented By: ALIX Vital Signs Vital signs: Vital Signs - 8 hr 03/07/24 12:13 03/07/24 15:53 Temperature 97.3 F L Pulse Rate 64 73 Respiratory Rate 18 16 Blood Pressure 178/77 H 192/79 H Pulse Oximetry 99 98 Oxygen Delivery Method Room Air Room Air <Gabby Escamilla DO - Last Filed: 03/07/24 19:33> Orders Ordered: ED Orders 03/07/24 15:00 Urine Culture Stat Urine Microscopic Stat Discontinued Medications Hydrocodone Bitart/Acetaminophen (Hydrocodone/Acet 5/325 Tablet) 1 tab PO NOW ONE Stop: 03/07/24 14:32 Last Admin: 03/07/24 14:58 Dose: 1 tab Documented By: ALIX Lidocaine (Lidocaine 5% Patch) 1 each TOP NOW ONE Stop: 03/07/24 14:32 Last Admin: 03/07/24 14:59 Dose: 1 each Documented By: ALIX Vital Signs Vital signs: Vital Signs - 8 hr 03/07/24 12:13 03/07/24 15:53 Temperature 97.3 F L Pulse Rate 64 73 Respiratory Rate 18 16 Blood Pressure 178/77 H 192/79 H Pulse Oximetry 99 98 Oxygen Delivery Method Room Air Room Air MDM - Back Pain/Injury <Chelsey Romero PA-C - Last Filed: 03/07/24 15:49> Lab Data Labs: Lab Results 03/07/24 Range/Units 15:00 Urine RBC 1-5/hpf (0-5/HPF) Urine WBC 5-10/hpf H (0-5/HPF) Ur Squamous Epith Cells 10-30 /hpf H D (0-5/HPF) Urine Bacteria Many (>30) H (None) Ur Culture Indicated? Specimen cultured Vol Urine Centrifuged 10ml (spun) Urine Dip Bedside Urine Glucose Negative Bedside Urine Bilirubin - Negative Bedside Urine Ketone - Negative Urine Specific [place] 1.030 Bedside Urine Occult Blood +/- Bedside Urine pH 5.5 Bedside Urine Protein - Negative Bedside Urine Urobilinogen - Negative Bedside Urine Nitrite - Negative Bedside Urine Leukocytes - Negative Esterase MDM Narrative Medical decision making narrative: 63-year-old female with a past medical history of sciatica, hypertension, insulin-dependent type 2 diabetes, hyperlipidemia, hypothyroidism, chronic kidney disease who presents to the emergency department for right-sided low back pain times 2-3 days. She is here with her sister who contributes to the history. Differential diagnosis includes but is not limited to sacroiliitis, lumbar radiculopathy, cystitis, spinal stenosis, herniated disc, degenerative disc disease, etc. On exam patient is in no acute distress, nontoxic appearing, afebrile and not tachycardic. She is subjective tenderness in the lumbosacral region on the right side/SI joint area. Positive right straight leg raise. Suspect symptoms are related to lumbar radiculopathy, due to her history of CKD and type 2 diabetes we will not use NSAIDs or steroids. We will treat with hydrocodone- acetaminophen, Lidoderm. We will obtain UA to rule out underlying cystitis. No bowel or bladder incontinence, saddle as anesthesia or acute lower extremity weakness concerning for cord compression. Patient's symptoms improved with Lidoderm and hydrocodone-acetaminophen. After shared decision-making, I sent her additional Lidoderm and a short course of muscle relaxers to her pharmacy. I also recommend that she use Tylenol and gentle exercise. Provided her with orthopedic follow up as I do believe she would benefit from physical therapy and further evaluation by solar energy sales specialist. UA is negative for any signs of infection. Patient verbalized understanding of all information and is stable for discharge. She is ambulatory. She is accompanied by her sister who is driving her home. ER return precautions discussed. <Gabby Escamilla, - Last Filed: 03/07/24 19:33> Lab Data Labs: Lab Results 03/07/24 Range/Units 15:00 Urine RBC 1-5/hpf (0-5/HPF) Urine WBC 5-10/hpf H (0-5/HPF) Ur Squamous Epith Cells 10-30 /hpf H D (0-5/HPF) Urine Bacteria Many (>30) H (None) Ur Culture Indicated? Specimen cultured Vol Urine Centrifuged 10ml (spun) Urine Dip Bedside Urine Glucose Negative Bedside Urine Bilirubin - Negative Bedside Urine Ketone - Negative Urine Specific [place] 1.030 Bedside Urine Occult Blood +/- Bedside Urine pH 5.5 Bedside Urine Protein - Negative Bedside Urine Urobilinogen - Negative Bedside Urine Nitrite - Negative Bedside Urine Leukocytes - Negative Esterase Discharge Plan Departure Patient Disposition: Home Clinical Impression: Lumbar radiculopathy, right Instructions: DI for Back Pain With Sciatica Activity Restrictions/Additional Instructions: Today you were evaluated for low back pain that radiates down the right leg. A urine test was done which shows no infection of the bladder. You were treated with a lidocaine patch in hydrocodone-acetaminophen which is strong opiate pain medication. I have sent additional lidocaine patches and a muscle relaxer to your pharmacy. Muscle relaxers may make you drowsy so do not take these with alcohol or while operating heavy machinery/driving a car. Please take Acetaminophen (Tylenol) for pain. You may also take Acetaminophen 650 mg every 4-6 hours for pain or 1,000mg every 8 hours. Do not exceed 3000 mg of Tylenol a day as this can cause liver damage. Please follow up with your primary care doctor for further evaluation. You would benefit by following up with the orthopedic spine doctor for further evaluation and possibly physical therapy. Orthopedic habilitation specialist: Dr. Mikel Taylor, [facility] in [place]. [phone]. Please follow up with your primary care doctor within the next 2-3 days for ER follow-up. (If you do not have a PCP you can call [phone]. ?to schedule an appointment with an [facility] Primary Care Provider) IF YOU DEVELOP ANY NEW OR WORSENING SYMPTOMS, RETURN TO THE ER! Please read the attached instructions, they highlight more specific treatments and interventions for you at home. Thank you for letting me participate in your care, Chelsey Romero PA-C Prescriptions: New lidocaine [Lidoderm] 5 % adhesive patch,medicated 1 patch topical DAILY Qty: 15 0RF Rx Instructions: leave on most painful area for up to 12 hrs methocarbamol 500 mg tablet 500 mg PO TID PRN (Reason: muscle spasm) Qty: 15 0RF No Action Vitamin D3 4,000 UNIT capsule 4,000 unit PO DAILY Qty: 0 bupropion HCl 300 mg tablet extended release 24 hr 300 mg PO QAM Qty: 90 1RF lisinopril 40 mg tablet 40 mg PO DAILY Qty: 90 3RF atenolol 50 mg tablet See Rx Instructions .ROUTE .COMPLEX Qty: 90 3RF Dose Instruction: Take 1 tablet by mouth once daily Rx Instructions: Take 1 tablet by mouth once daily hydrochlorothiazide 25 mg tablet 25 mg PO DAILY Qty: 90 3RF Lantus U-100 Insulin 100 unit/mL solution 50 unit SUBCUT DAILY Qty: 10 2RF albuterol sulfate [Ventolin HFA] 90 mcg/actuation HFA aerosol inhaler 2 puff inhalation Q4HP Qty: 8.5 5RF benzonatate 100 mg capsule 100 mg PO TID PRN (Reason: cough) Qty: 60 0RF levothyroxine 137 mcg tablet 137 mcg PO DAILY Qty: 90 3RF fluticasone propionate 50 mcg/actuation spray,suspension 1 spray Intranasal DAILY cetirizine [Zyrtec] 10 mg tablet 10 mg PO DAILY PRN Farxiga 10 mg tablet 10 mg PO QAM Qty: 90 3RF Trulicity 4.5 mg/0.5 mL pen injector 4.5 mg SUBCUT QWEEK Qty: 2 5RF atorvastatin 80 mg tablet 80 mg PO DAILY Qty: 90 3RF amlodipine 5 mg tablet 5 mg PO DAILY Qty: 90 3RF meclizine 25 mg tablet 25 mg PO TID PRN (Reason: dizziness) Qty: 30 5RF Referrals: Johann Judge DO [Primary Care Provider] - Stand Alone Forms: Patient Portal/API/Survey ED Sign-out <Gabby Escamilla DO - Last Filed: 03/07/24 19:33> Cosign ED Attending Cosignature Attestation: I was available for consultation.
[2024-03-07] MEDS: HYDROCODONE/ACET 5/325 TABLET 1 TAB PO (14:58)
[2024-03-07] MEDS: LIDOCAINE 5% PATCH 1 EACH TOP (14:59)
[2024-03-07 15:53] VITALS: BP 192/79; PULSE 73; RESP 16; O2SAT 98
[2024-03-07 15:58] LABS: Urine Volume 10mL (spun)
[2024-03-07 15:59] LABS: Bacteria Urine Many (>30); Culture Indicated Urine Specimen Cultured; RBC Urine 1-5/HPF (0-5/HPF); Squamous Epithelial Cell Urine 10-30 /HPF (0-5/HPF); WBC Urine 5-10/HPF (0-5/HPF)
== END 2024-03-07 15:55 | disposition home or self-care (01) ==
PROVIDERS: Emergency Provider Physician Assistant; PCP Family Medicine
DX: M54.16 Radiculopathy, lumbar region (principal)
CPT/HCPCS: 81003; 81015; 87086; 99283

== ENCOUNTER → 2024-05-02 11:16 | Outpatient (CLI) | payer BC, SELFPAY ==
[2023-08-20 15:53] VITALS: BMI 46.0
[2024-05-02 11:58] LABS: Alanine Aminotransferase 21 IU/L (<35); Albumin 4.6 g/dL (3.5-5.0); Albumin Globulin Ratio 1.5 (1.0-2.8); Alkaline Phosphatase 79 U/L (38-126); Aspartate Aminotransferase 23 IU/L (14-36); BUN Creatinine Ratio 15.6 (6-22); Bilirubin Total 0.7 mg/dL (0.2-1.3); Blood Urea Nitrogen 32 mg/dL (7-17); Calcium 9.4 mg/dL (8.4-10.2); Carbon Dioxide 28 mmol/L (22-32); Chloride 102 mmol/L (98-107); Estimated Glomerular Filt Rate 27 mL/min (>60); Globulin 3.1 g/dL (1.7-4.1); Glucose 120 mg/dL (80-110); HEMOLYSIS < 15 (0-50); Hemoglobin A1C% w Est Avg Glu 6.5 % (4.0-6.0); Potassium 4.6 mmol/L (3.4-5.1); Sodium 140 mmol/L (137-145); Total Protein 7.7 g/dL (6.3-8.2)
== END ==
PROVIDERS: PCP Family Medicine; Referring Provider Family Medicine; Visit Provider Family Medicine
DX: I10 Essential (primary) hypertension (principal); E11.21 Type 2 diabetes mellitus with diabetic nephropathy; Z79.4 Long term (current) use of insulin
CPT/HCPCS: 36415; 80053; 83036

== ENCOUNTER → 2024-06-30 08:10 | Outpatient (CLI) | payer BC, SELFPAY ==
[2023-08-20 15:53] VITALS: BMI 46.0
[2024-06-30 09:01] LABS: BUN Creatinine Ratio 20.4 (6-22); Blood Urea Nitrogen 31 mg/dL (7-17); Estimated Glomerular Filt Rate 38 mL/min (>60)
[2024-06-30 10:40] LABS: Creatinine Urine Random 112.36 mg/dL
== END ==
PROVIDERS: PCP Family Medicine; Referring Provider Family Medicine; Visit Provider Family Medicine
DX: E11.21 Type 2 diabetes mellitus with diabetic nephropathy (principal)
CPT/HCPCS: 36415; 82043; 82565; 82570; 84520

== ENCOUNTER 2024-07-26 10:45 | Emergency (ER) | payer BC, SELFPAY ==
[2023-08-20 15:53] VITALS: BMI 46.0
[2024-07-26 10:49] VITALS: BP 170/81; PULSE 58; RESP 18; TEMP 36.4; O2SAT 98; BMI 44.9
--- NOTE | 2024-07-26 12:27 | DI.RAD.S_ITS ---
PROCEDURE: XR CERVICAL SPINE 2V OR 3V INDICATIONS: neck pain TECHNIQUE: 3 view(s) of the cervical spine were acquired. COMPARISON: None. FINDINGS: Bones: No fractures or dislocations to the T1 level. Degenerative endplate changes and loss of disc height at C4-5 through C6-7 levels are seen. Bilateral facet hypertrophic changes throughout cervical spine is also seen. The lateral masses of C1 appear intact on the odontoid view. No suspicious bony lesions. Soft tissues: No prevertebral soft tissue swelling. IMPRESSION: No displaced fracture or traumatic subluxation. [id number] degenerative disc disease throughout cervical spine more notably in mid to lower cervical spine. Dictated by: Indra Varner M.D. on 07/26/2024 at 12:53 Approved by: Indra Varner M.D. on 07/26/2024 at 12:54
--- NOTE | 2024-07-26 13:18 | ED.NECK ---
HPI - Neck Pain/Injury <Karolina Wright PA-C - Last Filed: 07/26/24 13:26> General Chief Complaint: Neck Pain/Injury Stated Complaint: Left neck left shoulder pain Time Seen by Provider: 07/26/24 12:03 Mode of arrival: Ambulatory History of Present Illness HPI Narrative: 64-year-old female presents to the ED with 1 month of left-sided neck pain. Patient states the pain started spontaneously upon awakening a month ago. Patient has seen her PCP for it, has been referred to physical therapy as a next step. Patient is concerned about starting physical therapy prior to any imaging. Patient requesting an x-ray of the neck. No trauma. Patient localizes the pain to the left side of the neck, and it is sometimes travels down the left upper arm. Patient also endorses frequent ear infections and is wondering if she might be experiencing 1 now. No fever, chills, chest pain, shortness of breath, nausea, vomiting. No changes in hearing. No numbness, tingling, weakness. Related Data Home Medications Medication Instructions Recorded Confirmed cholecalciferol (vitamin D3) 100 4,000 unit PO DAILY ##0 05/22/16 06/30/24 mcg (4,000 unit) capsule (Vitamin D3) fluticasone propionate 50 1 spray intranasal DAILY 11/03/18 06/30/24 mcg/actuation nasal spray,suspension cetirizine 10 mg tablet (Zyrtec) 10 mg PO DAILY PRN 01/26/24 06/30/24 albuterol sulfate 90 mcg/actuation 2 puff inhalation Q4HP PRN 06/30/24 06/30/24 aerosol inhaler (Ventolin HFA) Previous Rx's Medication Instructions Recorded levothyroxine 137 mcg tablet 137 mcg PO DAILY #90 tabs 09/29/23 atenolol 50 mg tablet See Rx Instructions .Route 11/27/23 .COMPLEX #90 tabs lisinopril 40 mg tablet 40 mg PO DAILY #90 tabs 11/27/23 atorvastatin 80 mg tablet 80 mg PO DAILY #90 tabs 01/26/24 dulaglutide 4.5 mg/0.5 mL 4.5 mg (0.5 mL) SUBCUT QWEEK #2 mL 01/26/24 subcutaneous pen injector ([facility]) meclizine 25 mg tablet 25 mg PO TID PRN dizziness #30 tabs 01/26/24 benzonatate 100 mg capsule 100 mg PO TID PRN cough #60 caps 02/23/24 lidocaine 5 % topical patch 1 patch topical DAILY #15 ea 03/07/24 (Lidoderm) methocarbamol 500 mg tablet 500 mg PO TID PRN muscle spasm #15 03/07/24 tabs hydrochlorothiazide 50 mg tablet 50 mg PO DAILY #90 tabs 05/02/24 insulin glargine 100 unit/mL 50 unit (0.5 mL) SUBCUT DAILY #10 06/07/24 subcutaneous solution (Lantus mL U-100 Insulin) amlodipine 10 mg tablet 10 mg PO DAILY #90 tabs 06/30/24 semaglutide 0.25 mg or 0.5 mg (2 0.25 mg (0.368 mL) SUBCUT QWEEK #3 06/30/24 mg/3 mL) subcutaneous pen injector mL (Ozempic) semaglutide 0.25 mg or 0.5 mg (2 0.5 mg (0.736 mL) SUBCUT QWEEK #3 06/30/24 mg/3 mL) subcutaneous pen injector mL (Ozempic) bupropion HCl 300 mg 24 hr tablet, 300 mg PO QAM #90 tabs 07/12/24 extended release cyclobenzaprine 10 mg tablet 10 mg PO TID PRN muscle spasm #14 07/26/24 tabs Allergies Allergy/AdvReac Type Severity Reaction Status Date / Time shellfish derived AdvReac Severe HIVES Verified 06/30/24 08:49 [SHELLFISH DERIVED] iodine [IODINE] AdvReac Unknown Hives Verified 06/30/24 08:49 Review of Systems <Karolina Wright PA-C - Last Filed: 07/26/24 13:26> Constitutional Constitutional: Denies chills, Denies fatigue, Denies fever(s), Denies frequent falls, Denies lethargy and Denies weakness Eyes Eyes: Denies change in vision, Denies eye discharge, Denies irritation and Denies loss of vision ENT Ears, Nose, Mouth, and Throat: Denies change in voice, Denies dizziness, Reports neck pain, Denies sore throat and Denies throat swelling Cardiovascular Cardiovascular: Denies chest pain, Denies irregular heart rhythm, Denies lightheadedness, Denies palpitations, Denies dyspnea, Denies dyspnea on exertion and Denies orthopnea Respiratory Respiratory: Denies cough, Denies dyspnea, Denies dyspnea on exertion and Denies wheezing Gastrointestinal Gastrointestinal: Denies abdominal pain, Denies change in bowel habits, Denies diarrhea, Denies nausea and Denies vomiting Musculoskeletal Musculoskeletal: Reports neck pain and Denies numbness Integumentary/Breasts Skin/Breast: Denies pruritus, Denies erythema, Denies rash and Denies wounds Neurologic Neurologic: Denies behavioral changes, Denies confusion, Denies dizziness, Denies frequent falls, Denies loss of vision, Denies numbness and Denies weakness Psychiatric Psychiatric: Denies anxiety, Denies behavioral changes, Denies confusion, Denies depression, Denies homicidal ideation and Denies suicidal ideation Endocrine Endocrine: Denies fatigue, Denies flushing and Denies palpitations Hematologic/Lymphatic Hematologic/Lymphatic: Denies easy bruising Allergic/Immunologic Allergic/Immunologic: Denies urticaria, Denies throat swelling and Denies wheezing Patient History <Karolina Wright PA-C - Last Filed: 07/26/24 13:26> Medical History Diabetic neuropathy Cervical somatic dysfunction Acute pain of left hip Acute neck pain Infective urethritis Bronchitis Sinusitis, acute Flank pain Chronic right-sided low back pain with right-sided sciatica History of febrile urinary tract infection Nausea Diabetic nephropathy associated with type 2 diabetes mellitus Work-related stress Leukocytosis Urinary tract infection Acute kidney injury Oral pain of unknown etiology Cellulitis of great toe, left Asthma (~07/2010) Hyperlipidemia (~07/2010) Eczema (1986) Alopecia (1986) Chronic cough (2016) Allergy (Unknown) Seasonal depression (2014) Migraines (1971) Generalized headaches (1971) Foot pain (Unknown) Fibromyalgia (2010) Chronic back pain (1959) Ankle pain (2014) Chickenpox (~1959) Vertigo (1979) History of tinnitus (1979) Recurrent sinusitis (1971) History of recurrent ear infection (1971) Cataracts, bilateral (2013) Ovarian cyst (2010) Urinary incontinence (2016) Duodenal ulcer (1983) Hemorrhoids (2013) Thyroid nodule (2010) Hypothyroidism (2010) Diabetes (2013) Hypertension (2006) Surgical History Status post colonoscopy History of third molar tooth extraction Family History Brother Age: 67 Diabetes mellitus Heart disease Hypertension High cholesterol Drug abuse Brother Age: 60 Diabetes mellitus Hypertension High cholesterol Stroke Father Diabetes mellitus Heart disease Hypertension High cholesterol Mother Diabetes mellitus Heart disease Hypertension High cholesterol Stroke Grandfather Diabetes mellitus Heart disease Hypertension High cholesterol Grandmother Diabetes mellitus Heart disease Hypertension High cholesterol Sister Age: 63 COPD (chronic obstructive pulmonary disease) Diabetes mellitus Heart disease Hypertension High cholesterol Sister Age: 61 Hypertension High cholesterol Social History household members: family Smoking Status: Never smoker alcohol intake: current Smoking Status: Never smoker alcohol intake frequency: holidays/special occasions only Exam <Karolina Wright PA-C - Last Filed: 07/26/24 13:26> Narrative Exam Narrative: Const General:?cooperative, healthy appearing and comfortable HENPA Head:?normal to inspection Ears:?hearing grossly normal bilaterally; tympani normal bilaterally Nose:?external nose normal Face and sinus:?normal facial exam and sinuses nontender Mouth:?oral mucosae normal Throat:?posterior oropharynx normal Eyes General:?appearance normal, both eyes and all related structures Neck Neck:?normal visual inspection and no lymphadenopathy noted Resp Effort & Inspection:?normal respiratory effort Auscultation:?clear to auscultation bilaterally Cardio Rate:?regular rate Rhythm:?regular rhythm Musculoskeletal No midline tenderness to palpation. No paraspinal tenderness to palpation. Full range of motion. Neurovascularly intact. Skin normal Neuro General:?patient alert, patient awake and patient oriented x3 Initial Vital Signs Initial Vital Signs: Vital Signs Temperature 97.6 F 07/26/24 10:49 Pulse Rate 58 L 07/26/24 10:49 Respiratory Rate 18 07/26/24 10:49 Blood Pressure 170/81 H 07/26/24 10:49 Pulse Oximetry 98 07/26/24 10:49 Oxygen Delivery Method Room Air 07/26/24 10:49 <Mikel Walters MD - Last Filed: 07/26/24 15:09> Initial Vital Signs Initial Vital Signs: Vital Signs Temperature 97.6 F 07/26/24 10:49 Pulse Rate 58 L 07/26/24 10:49 Respiratory Rate 18 07/26/24 10:49 Blood Pressure 170/81 H 07/26/24 10:49 Pulse Oximetry 98 07/26/24 10:49 Oxygen Delivery Method Room Air 07/26/24 10:49 Course <Karolina Wright PA-C - Last Filed: 07/26/24 13:26> Orders Ordered: ED Orders 07/26/24 12:27 XR cervical spine 2V or 3V Stat Vital Signs Vital signs: Vital Signs - 8 hr 07/26/24 10:49 07/26/24 13:35 Temperature 97.6 F Pulse Rate 58 L 56 L Respiratory Rate 18 17 Blood Pressure 170/81 H 135/70 Pulse Oximetry 98 99 Oxygen Delivery Method Room Air Room Air <Mikel Walters MD - Last Filed: 07/26/24 15:09> Orders Ordered: ED Orders 07/26/24 12:27 XR cervical spine 2V or 3V Stat Vital Signs Vital signs: Vital Signs - 8 hr 07/26/24 10:49 07/26/24 13:35 Temperature 97.6 F Pulse Rate 58 L 56 L Respiratory Rate 18 17 Blood Pressure 170/81 H 135/70 Pulse Oximetry 98 99 Oxygen Delivery Method Room Air Room Air MDM - Neck Pain/Injury <Karolina Wright PA-C - Last Filed: 07/26/24 13:26> MDM Narrative Medical decision making narrative: 64-year-old female presents to the ED with 1 month of left-sided neck pain. Will obtain x-ray to rule out fracture/dislocation. Bilateral tympani are normal. X-ray shows no displaced fracture or traumatic subluxation. [id number] degenerative disc disease throughout cervical spine more notably in mid to lower cervical spine. Discussed findings with patient. Prescribed muscle relaxant. Recommend follow-up with her PCP as scheduled for later this week. ED return precautions discussed with patient. Patient verbalized understanding. Medical records reviewed: Yes Discharge Plan Departure Patient Disposition: Home Clinical Impression: Neck pain Instructions: DI for Neck Pain Activity Restrictions/Additional Instructions: You were evaluated in the ED today for left-sided neck pain. Your x-ray does not show any fractures or dislocations. There is mild degenerative disc disease in the neck which could be contributing to your symptoms. These symptoms could also be due to disc issues. You are being prescribed muscle relaxants for pain relief. Please follow-up with your PCP as soon as possible for further evaluation, PT. you may also take 1000 mg of Tylenol every 8 hours with food. Return to the ED if you have worsening symptoms. Prescriptions: New cyclobenzaprine 10 mg tablet 10 mg PO TID PRN (Reason: muscle spasm) Qty: 14 0RF No Action Vitamin D3 4,000 UNIT capsule 4,000 unit PO DAILY Qty: 0 lisinopril 40 mg tablet 40 mg PO DAILY Qty: 90 3RF atenolol 50 mg tablet See Rx Instructions .ROUTE .COMPLEX Qty: 90 3RF Dose Instruction: Take 1 tablet by mouth once daily Rx Instructions: Take 1 tablet by mouth once daily benzonatate 100 mg capsule 100 mg PO TID PRN (Reason: cough) Qty: 60 0RF Lantus U-100 Insulin 100 unit/mL solution 50 unit SUBCUT DAILY Qty: 10 2RF bupropion HCl 300 mg tablet extended release 24 hr 300 mg PO QAM Qty: 90 0RF levothyroxine 137 mcg tablet 137 mcg PO DAILY Qty: 90 3RF hydrochlorothiazide 50 mg tablet 50 mg PO DAILY Qty: 90 3RF albuterol sulfate [Ventolin HFA] 90 mcg/actuation HFA aerosol inhaler 2 puff inhalation Q4HP PRN amlodipine 10 mg tablet 10 mg PO DAILY Qty: 90 3RF Ozempic 0.25 mg or 0.5 mg (2 mg/3 mL) pen injector 0.25 mg SUBCUT QWEEK Qty: 3 0RF Rx Instructions: for 4 weeks Ozempic 0.25 mg or 0.5 mg (2 mg/3 mL) pen injector 0.5 mg SUBCUT QWEEK Qty: 3 0RF fluticasone propionate 50 mcg/actuation spray,suspension 1 spray Intranasal DAILY cetirizine [Zyrtec] 10 mg tablet 10 mg PO DAILY PRN Trulicity 4.5 mg/0.5 mL pen injector 4.5 mg SUBCUT QWEEK Qty: 2 5RF Hold Instructions: med change atorvastatin 80 mg tablet 80 mg PO DAILY Qty: 90 3RF meclizine 25 mg tablet 25 mg PO TID PRN (Reason: dizziness) Qty: 30 5RF lidocaine [Lidoderm] 5 % adhesive patch,medicated 1 patch topical DAILY Qty: 15 0RF Rx Instructions: leave on most painful area for up to 12 hrs methocarbamol 500 mg tablet 500 mg PO TID PRN (Reason: muscle spasm) Qty: 15 0RF Referrals: Johann Judge DO [Primary Care Provider] - Stand Alone Forms: Patient Portal/API/Survey ED Sign-out <Mikel Walters MD - Last Filed: 07/26/24 15:09> Cosign ED Attending Cosrochelleature Attestation: I was immediately available in the department for consultation. ?This documentation has been reviewed and I agree with assessment and plan. Supervised by Mikel Walters MD
[2024-07-26 13:35] VITALS: BP 135/70; PULSE 56; RESP 17; O2SAT 99
== END 2024-07-26 13:35 | disposition home or self-care (01) ==
PROVIDERS: Emergency Provider Student in an Organized Health Care Education/Training Program; PCP Family Medicine
DX: M54.2 Cervicalgia
CPT/HCPCS: 72040; 99281; 99283

== ENCOUNTER → 2024-09-15 16:38 | Outpatient (CLI) | payer BC, SELFPAY ==
[2023-08-20 15:53] VITALS: BMI 46.0
== END ==
PROVIDERS: PCP Family Medicine; Visit Provider Chiropractor
DX: J02.9 Acute pharyngitis, unspecified (principal)
CPT/HCPCS: 87070; 87147

== ENCOUNTER → 2024-12-28 13:43 | Outpatient (CLI) | payer BC, SELFPAY ==
[2023-08-20 15:53] VITALS: BMI 46.0
[2024-12-28 14:08] LABS: Add Manual Diff / Slide Review NO; Hematocrit 38.6 % (36-46); Hemoglobin 12.7 g/dL (12.0-16.0); Lymphocytes Absolute Auto 2000 /uL (1100-4500); Mean Corpuscular HGB Conc 33.0 % (30-36); Mean Corpuscular Hemoglobin 28.6 PG (26-34); Mean Corpuscular Volume 86.8 fL (80-100); Platelet Count 453 X10^3/uL (150-400)
[2024-12-28 14:21] LABS: Alanine Aminotransferase 15 IU/L (<35); Albumin 4.5 g/dL (3.5-5.0); Albumin Globulin Ratio 1.3 (1.0-2.8); Alkaline Phosphatase 88 U/L (38-126); Blood Urea Nitrogen 30 mg/dL (7-17); Calcium 9.3 mg/dL (8.4-10.2); Carbon Dioxide 26 mmol/L (22-32); Chloride 101 mmol/L (98-107); Cholesterol 204 mg/dL (140-199); Estimated Glomerular Filt Rate 29 mL/min (>60); Globulin 3.5 g/dL (1.7-4.1); Glucose 134 mg/dL (70-99); HDL Cholesterol 44 mg/dL (40-60); HEMOLYSIS < 15 (0-50); Potassium 4.6 mmol/L (3.4-5.1); Sodium 139 mmol/L (137-145); Total Protein 8.0 g/dL (6.3-8.2); Triglycerides 227 mg/dL (35-150)
[2024-12-28 18:54] LABS: Microalbumi Creatinin Ratio Ur 315.0 ug/mg CR (<30)
[2024-12-29 20:49] LABS: Hep C Virus Ab w/Reflex Quant NEGATIVE s/c (NEGATIVE)
== END ==
PROVIDERS: PCP Family Medicine; Referring Provider Family Medicine; Visit Provider Family Medicine
DX: E11.21 Type 2 diabetes mellitus with diabetic nephropathy (principal); I10 Essential (primary) hypertension; Z79.4 Long term (current) use of insulin; E78.5 Hyperlipidemia, unspecified
CPT/HCPCS: 36415; 80053; 80061; 82043; 82570; 85025; 86803

== ENCOUNTER → 2025-03-03 12:03 | Outpatient (CLI) | payer BC, SELFPAY ==
[2023-08-20 15:53] VITALS: BMI 46.0
== END ==
PROVIDERS: PCP Family Medicine; Referring Provider Nurse Practitioner Family; Visit Provider Nurse Practitioner Family
DX: R30.0 Dysuria (principal); N94.9 Unspecified condition associated with female genital organs and menstrual cycle
CPT/HCPCS: 87077; 87086; 87210